=== PATIENT | female | born 1945 | race Hispanic/Latino ===

== ENCOUNTER → 2019-08-04 | Day surgery (SDC) | payer MEDICARE ==
--- NOTE | 2019-08-01 15:56 | Diagnostic Imaging Report ---
EXAM: CHEST 2 VIEWS DATE: 08/01/2019 3:35 PM INDICATION: Preoperative evaluation COMPARISON: None FINDINGS: There are post surgical changes from prior median sternotomy. The trachea is midline. The lungs are symmetrically expanded without evidence for large focal consolidation, pneumothorax, or significant pleural effusion. The cardiomediastinal silhouette and pulmonary vasculature are within normal limits. No acute osseous abnormality is identified. Surgical clips are projected over the bilateral axilla. The surrounding soft tissues are unremarkable. IMPRESSION: No acute cardiopulmonary process identified. Signed by: Dr. Dayo Ortiz MD on 08/01/2019 3:53 PM
[2019-08-01 15:57] LABS: BASOPHILS % 0.4 % (0.0-1.0); EOSINOPHILS % 0.4 % (0.0-6.0); HEMATOCRIT 38.4 % (34.2-44.1); HEMOGLOBIN 11.6 g/dL (12.0-16.0); LYMPHOCYTES # (AUTO) 0.9 (1.0-3.2); LYMPHOCYTES % 8.2 % (18.0-39.1); MEAN CORPUSCULAR HEMOGLOBIN 25.7 pg (28-32); MEAN CORPUSCULAR HGB CONC 30.2 g/dL (31-35); MONOCYTES # (AUTO) 0.5 (0.2-0.8); MONOCYTES % 4.6 % (4.4-11.3); NEUTROPHILS # (AUTO) 9.5 (2.1-6.9); PLATELET COUNT 204 x10e3/uL (140-360); RED BLOOD COUNT 4.52 x10e6/uL (3.6-5.1); RED CELL DISTRIBUTION WIDTH 19.8 % (11.7-14.4)
[2019-08-01 16:14] LABS: ANION GAP 15.7 mmol/L (8-16); CALCIUM 9.3 mg/dL (8.4-10.2); CREATININE, SERUM 5.32 mg/dL (0.57-1.11); POTASSIUM 3.7 mmol/L (3.5-5.1)
[~2019-08-04] MED LIST: AMLODIPINE BESY10 MG PO; AMOXICILLIN250 MG PO; BACITRACIN 50,000 UNIT VIAL ONE; BIOTIN2500 MCG PO; BUPIVACAINE HCL 0.5% INJ 30 ML VIAL INJ ONE; CEFAZOLIN SOD 1 GM/NS 50ML 100 ML IV ONE; CLOPIDOGREL75 MG PO; DEXAMETHASONE SOD PHOS INJ 4 MG/ML VIAL ONE; ETOMIDATE 2 MG/ML 10 ML INJ IV ONE; FENTANYL CITRATE/PF 100MCG/2 ML INJ ONE; GABAPENTIN300 MG PO; GARLIC1000 MG PO; HYDROCODON-ACE1 EA11 PO; LEVEMIR100 UNIT/1 SQ; LIDOCAINE HCL 2% LOCAL INJ 5 ML SDV VIAL INJ ONE; LORAZEPAM0.5 MG PO; METOPROLOL SUCC25 MG PO; NEOSTIGMINE 1 MG/ML 10ML VIAL ONE; NOVOLIN R100 UNIT/1 SQ; NOVOLOG100 UNIT/1 SC; PANTOPRAZOLE SO40 MG PO; PROMETHAZINE12.5 M1 PO; RAMIPRIL5 MG PO; SEVOFLURANE INHAL SOLN 250 ML PEN BTL ONE; SIMVASTATIN40 MG PO; SODIUM CHLORIDE 0.9% 500ML 500 ML ONE; VITAMIN D1000 UNIT PO; VITAMIN E400 UNI1 PO
--- OUTSIDE RECORDS SUMMARY | 2019-08-04 05:56 | XMS REPORT | Summary of Care ---
Author Author [facility] Organization [facility] Address Unknown Phone Unavailable Care Team Providers Care Respiratory Practitioner Name Role Phone PCP Unavailable Reason for Visit * Reason Comments Coronary Artery Disease Encounter Details Care Team Description Date Type Department Eitan Arndt MD [address] [address] Coronary Artery Disease 12/19/2018 Office Visit [facility] Cardiology [address] [address] Allergies Comments Active Allergy Reactions Severity Noted Date Aspirin 11/23/2016 bleeding Salicylates 02/01/2015 documented as of this encounter (statuses as of 12/19/2018) Medications End Date Status Medication Sig Dispensed Refills Start Date Active amlodipine (NORVASC) 10 Take 10 mg by 0 MG tablet mouth. Active gabapentin (NEURONTIN) Take 300 mg 0 300 MG capsule by mouth two times daily. Active metoprolol (TOPROL-XL) 25 TK 1 T PO QD 1 201 MG XL tablet 7 Active promethazine (PHENERGAN) Take 5 mL by 0 6.25 MG/5ML syrup mouth. Active pantoprazole (PROTONIX) Take 40 mg by 0 40 MG tablet mouth. 5 Active Ramipril 5 MG CAPS Take 5 mg by 0 mouth. Active Cyanocobalamin (RA Take 3,000 0 VITAMIN B-12 TR) 1000 MCG mcg by mouth. TBCR Active Cholecalciferol (VITAMIN Take 1,000 0 D3) 1000 UNITS CAPS Units by mouth. Active vitamin E 400 UNITS Take 400 0 capsule Units by mouth. Active hydrocodone-acetaminophen Take 1 tablet 0 (VICODIN) 5-500 mg tablet by mouth. Active Insulin Aspart 100 Inject 4 0 UNIT/ML SOPN Units into the skin. Active insulin detemir (LEVEMIR) Inject 7 0 100 UNIT/ML injection Units into the skin. Active BIOTIN OR Take 500 mg 0 by mouth. Active lorazepam (ATIVAN) 1 MG TK 1 T PO QD 0 tablet FOR 20 DAYS 7 PRN Active Amoxicillin 500 MG TABS amoxicillin 0 500 mg capsule Take 1 capsule twice a day by oral route for 45 days. documented as of this encounter (statuses as of 12/19/2018) Active Problems Problem Noted Date ESRD (end stage renal disease) [place] 11/23/2016 Overview: Secondary to HTN and DM On HD since 02/2015 on , Sat Undergoing renal transplant evaluation PVD (peripheral vascular disease) ([facility] [place]) 7 Overview: Critical LLE ischemia S/p INTERNATIONAL FLIGHT ATTENDANT and stent to left iliac artery on 02/11/2015 Left common femoral endarterectomy 02/03 CAD (coronary artery disease) 11/23/2016 Overview: Multivessel CAD on heart cath 01/30/15 S/P ACB x 3 - MARTINEZ to LAD; SVG to OM an d RPDA, 02/05/2015 HTN (hypertension) 11/23/2016 [facility] 11/23/2016 HLD (hyperlipidemia) 11/23/2016 documented as of this encounter (statuses as of 12/19/2018) Social History Date Tobacco Use Types Packs/Day Years Used Current Every Day Smoker Cigarettes 44 Smokeless Tobacco: Never Used Comments: 4-5 cig a day Drinks/Week oz/Week Comments Alcohol Use No Sex Assigned at Date Recorded Not on file Industry Job Start Date Occupation Not on file Not on file Not on file Travel End Travel History Travel Start No recent travel history available. documented as of this encounter Last Filed Vital Signs Reading Time Taken Comments Vital Sign 120/60 12/19/2018 11:22 AM CDT Blood Pressure 64 12/19/2018 11:22 AM CDT Pulse - - Temperature 15 12/19/2018 11:22 AM CDT Respiratory Rate 95% 12/19/2018 11:22 AM CDT Oxygen Saturation - - Inhaled Oxygen Concentration 62.6 kg (138 lb) 12/19/2018 11:22 AM CDT Weight 160 cm (5' 3") 12/19/2018 11:22 AM CDT Height 24.45 12/19/2018 11:22 AM CDT Body Mass Index documented in this encounter Patient Instructions * Patient Instructions* Rose Marie Adan AG-ACNP - 12/19/2018 12:00 PM CDT Thank you for choosing the [facility]. 1. Please let us know what we can do better. Please provide comments on the surv ey you will receive. We value your feedback. 2. Return to Clinic in 6 months 3. Continue same medications 4. Follow up with Dr. Samuels for peripheral vascular disease 5. Call office if new symptoms occur documented in this encounter Progress Notes * Eitan Arndt MD - 12/19/2018 12:00 PM CDT Patient: Kim Guerrero : 1945 CHIEF COMPLAINT: Pre-Renal Transplant Evaluation RENAL BODY PRESS OPERATOR: Angelica Aguilera RN HISTORY OF PRESENT ILLNESS: Patient is a 73 year old female with past medical history significant for estrada ry artery disease with previous aorto-coronary bypass, peripheral vascular disea se, and end-stage renal disease secondary to hypertension and diabetes mellitus, undergoing renal transplant evaluation - removed from the list in August 2018 CKD since 2015 years CKD is due to DM/ HTN DM duration 15 years 2 years on insulin On HD since 03/2015 - Wed and Wednesday Left arm AVF 2015 Right arm AVF 2016 Being worked up for kidney transplant - no donors Denies CP Class II SOB with climbing stairs or walking distances Dry weight 60 Kg Stress test negative ACB in 02/2015 Has some coughing spells that she uses a nebulizer for but denies any lung disea se diagnoses. Has significant LE claudication Continues to smoke 1 pack per 3 days PAST MEDICAL HISTORY: 1) End-stage renal disease - Secondary to HTN and DM - On HD since 02/2015 on Wed, , Wed - Undergoing renal transplant evaluation - removed from the list in August 2018 2) Hypertension 3) Diabetes Mellitus 4) Peripheral vascular disease - Critical LLE ischemia - S/p INTERNATIONAL FLIGHT ATTENDANT and stent to left iliac artery on 02/11/2015 - Left common femoral endarterectomy 02/12/2015 5) Coronary artery disease - Multivessel CAD on heart cath 01/30/15 - S/P ACB x 3 - MARTINEZ to LAD; SVG to OM and RPDA, 02/05/2015 PAST SURGICAL HISTORY: AVF placement 02/2015 ACB 02/05/15 INTERNATIONAL FLIGHT ATTENDANT and stent to left iliac artery 02/11/15 CURRENT MEDICATIONS: Current Outpatient Medications Medication Sig Dispense Refill amlodipine (NORVASC) 10 MG tablet Take 10 mg by mouth. Amoxicillin 500 MG TABS amoxicillin 500 mg capsule Take 1 capsule twice a day by oral route for 45 days. BIOTIN OR Take 500 mg by mouth. Cholecalciferol (VITAMIN D3) 1000 UNITS CAPS Take 1,000 Units by mouth. Cyanocobalamin (RA VITAMIN B-12 TR) 1000 MCG TBCR Take 3,000 mcg by mouth. gabapentin (NEURONTIN) 300 MG capsule Take 300 mg by mouth two times daily. hydrocodone-acetaminophen (VICODIN) 5-500 mg tablet Take 1 tablet by mouth. Insulin Aspart 100 UNIT/ML SOPN Inject 4 Units into the skin. insulin detemir (LEVEMIR) 100 UNIT/ML injection Inject 7 Units into the skin . lorazepam (ATIVAN) 1 MG tablet TK 1 T PO QD FOR 20 DAYS PRN 0 metoprolol (TOPROL-XL) 25 MG XL tablet TK 1 T PO QD 1 pantoprazole (PROTONIX) 40 MG tablet Take 40 mg by mouth. promethazine (PHENERGAN) 6.25 MG/5ML syrup Take 5 mL by mouth. Ramipril 5 MG CAPS Take 5 mg by mouth. vitamin E 400 UNITS capsule Take 400 Units by mouth. No current facility-administered medications for this visit. 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 HENT: Negative. Eyes: Negative. Respiratory: Negative for shortness of breath. Cardiovascular: Negative Gastrointestinal: Negative for abdominal pain. Genitourinary: Negative. Musculoskeletal: Negative. Skin: Negative. Neurological: Negative. Endo/Heme/Allergies: Negative. Psychiatric/Behavioral: Negative. PHYSICAL EXAMINATION: BP 120/60 (BP Location: right arm, Patient Position: Sitting, Cuff Size: regular ) | Pulse 64 | Resp 15 | Ht 5' 3" (1.6 m) | Wt 138 lb (62.6 kg) | SpO2 95% | BMI 24.45 kg/m General Appearance: Alert, cooperative, no distress, appears stated age Head: Normocephalic, without obvious abnormality, atraumatic Eyes: PERRL, conjunctiva/corneas clear, EOM's intact, fundi benign, both eyes Nose: Nares normal, septum midline, mucosa normal, no drainage or sinus tendern ess Throat: Lips, mucosa, and tongue normal; teeth and gums normal Neck: Supple, symmetrical, trachea midline, no adenopathy; thyroid: no enlargement/tenderness/nodules; no carotid bruit or JVD Back: Symmetric, no curvature, ROM normal, no CVA tenderness Lungs: Clear to auscultation bilaterally, respirations unlabored Chest Wall: No tenderness or deformity Heart: Regular rate and rhythm, S1 and S2 normal, no murmur, rub or gallop ACB scar Loud P2 Abdomen: Soft, non-tender, bowel sounds active all four quadrants, no masses, no organomegaly Extremities: Extremities normal, atraumatic, no cyanosis or edema Pulses: 2+ and symmetric all extremities Skin: Skin color, texture, turgor normal, no rashes or lesions Psychiatry : Normal mood and Affect Lymph nodes: Cervical, supraclavicular, and axillary nodes normal Neurologic: Alert and oriented x 4, normal strength, sensation and reflexes throughout PERTINENT TEST RESULTS: ECHO 01/18/2017 1. Left ventricular chamber size (by vol index) is normal. No evidence of LV hyp ertrophy. All of the LV segments contract normally. Global LV systolic function is lower limits of normal. LVEF by quantitative assessment is lower limits of no rmal (50-55%). Likely Grade 2 diastolic dysfunction (moderately increased LA pre ssure). 2. RV chamber size is normal. Global RV systolic function is low normal. 3. LA size is mildly enlarged (35-41 ml/m2). RA cavity size is normal. 4. Mild mitral annular calcification. Mild increase in the mitral valve gradient s secondary to MAC. Mild MV leaflet thickening. A trace of mitral regurgitation. 5. A trace of tricuspid regurgitation. Peak systolic PA pressure may be underest imated; partial TR signal. Estimated Peak systolic PA pressure is at least 25-30 mm Hg. The estimated RA pressure by IVC dynamics 0-5 mmHg. No prior exam available for comparison. 02/22/15 1) Normal left ventricular chamber size. Mild concentric LV hypertrophy. All seg ments contract normally. Normal overall LV systolic function. Estimated LVEF is 55-60%. 2) The PA systolic pressure is estimated at 45-50 mmHg. The RAP is estimated to be 11-15 mmHg. 3) Pulmonary venous filling pattern is consistent with normal left atrial pressu re. 4) There is a small pericardial effusion. The pericardial effusion is seen adjac ent to the right atrium 02/04/15 1) The endocardium is partially visualized. 2) Normal overall LV systolic function. Estimated LVEF is 55-60%. All segments c ontract normally. 3) The right ventricular chamber size and systolic function are within normal li mits. 4) Mild aortic cusp thickening. 5) There is mild mitral regurgitation observed. The mitral regurgitant jet is ec centric. 6) There is mild tricuspid regurgitation. 7) A trivial pericardial effusion is visualized. 8) The RAP is estimated to be 11-15 mmHg. 9) There is no previous study for comparison. STRESS TEST 01/18/2017 1. Study was performed as a hybrid protocol ( Treadmill Marixa protocol plus L exiscan). Patient exercised for 3 minutes and 27 seconds on the [employer] with work load less than 2 mets. Lexiscan was injected at 1 minute and 30 seco nds of the exercise. 2. With the the hybrid exercise/pharmacologic stressor, there were 0.5 - 1 mm do wn sloping ST depressions noted. Specificity of these ST changes for evaluation of ischemia is reduced in the setting of abnormal baseline EKG. Arrhythmias did occur, and included VPB's. 3. Normal tracer distribution at rest and with stress. 4. Normal LV size, normal wall motion. EF 70%. CT CHEST WITHOUT CONTRAST 02/02/2016 Diffuse pulmonary hyperinflation consistent with COPD. Bilateral pleural effusions and lower lobe atelectasis. A portion of the left lo wer lobe atelectasis laterally has a somewhat oval nodular configuration. A foll ow-up CT scan in 4 months is recommended for re-evaluation. CTA ABDOMEN/PELVIS 06/03/2017 1. There is atherosclerosis seen in the abdominal aorta though no acute aortic p athology is identified. By multiplanar reformation, no luminal obstruction is ap preciated. There is no evidence of acute aortic pathology, specifically, there i s no dissection, intramural hematoma, or contained rupture. Quantitative dimension of the abdominal aorta are as noted. The pelvic veins are patent. Stent is seen in the left common iliac artery extending into the left external i liac artery with no in-stent stenosis identified. There is also substantial calc ific and noncalcific atherosclerosis seen in the right common iliac artery with minimum diameter as described above. The external iliac arteries, bilaterally, are widely patent. As the left common iliac system is widely patent, the left external iliac artery could be a better approach as there is also substantial atherosclerosis seen in the right common iliac artery. 2. Patent mesenteric and renal arteries. 3. Other findings as described above. 4. An addendum will be dictated regarding the non-vascular findings by the Ecological Economist Radiologist. LE ARTERIAL DOPPLER 02/02/2015 Right Impression 1. The common femoral, profunda femoral, superficial femoral, popliteal, posteri or tibial, peroneal and anterior tibial arteries are patent with normal biphasic Doppler waveforms throughout. 2. The PT pressure is 92 mmHg with an JOCELYNE of .75 and the DP pressure is 100 mmHg with an JOCELYNE of .81, within moderate range. 3. The great toe pressure is 27 mmHg with a abnormal TBI of .22. 4. The digits have adequate flow by PPG waveforms. Left Impression 1. The common femoral, profunda femoral, superficial femoral, popliteal, posteri or tibial, peroneal and anterior tibial arteries are patent with monophasic Doppler waveforms throughout, suggestive of more proximal disease. 2. The PT pressure is 50 mmHg with an JOCELYNE of .41 and the DP pressure is 42 mmHg with an JOCELYNE of .34, within severe range. 3. The great toe pressure is 32 mmHg with a abnormal TBI of .26 . 4. The digits has decreased flow by PPG waveforms. Summary Arterial pressures and duplex imaging were performed bilaterally. Arterial press ures and duplex imaging were performed bilaterally. Adequate Doppler signals wer e obtained. Doppler waveforms were biphasic with normal flow on the right. The l eft had monophasic Doppler signals throughout on the left leg suggestive of more proximal disease.. The right ABIs were within moderate range. The left JOCELYNE's were within severe range. The toe pressure, TBI and digital waveforms were abno rmal. CAROTID DOPPLER 02/02/2015 Carotid duplex scanning and color flow imaging were performed bilaterally. The a rteries were adequately visualized. Bilateral internal carotid arteries had 16-4 9% hemodynamically insignificant stenosis (approximately 38% by 2-D measurement on the right, approximately 18% by 2-D measurement on the left) with heterogeneous plaq ue. There is >50% stenosis in the external carotid artery, bilaterally. The vertebral artery flow was antegrade and normal bilaterally. RIGHT HEART CATH 02/15/2017 1) Right atrial pressure RA 9/9/9 mmHg. 2) Right ventricular pressure RV 44/1/5 mmHg. 3) Pulmonary artery pressure PA 43/24/29 mmHg. 4) Mean pulmonary capillary wedge pressure PCWP 02/15/11 mmHg. 5) Ao 62 6) LV pressures 146/2/10 7) PAO2 Sats 62 8) Ao Sats 90 9) By BLAISE calculation, cardiac output 3.4 L per minute with a cardiac index of 2 L/min/m2. 10) TPG 18 11) PVR 5 PERIPHERAL ANGIOGRAM 02/15/2017 AORTOGRAM: Heavily calcified aortoiliac bifurcation 40% proximal R common iliac a 70% ostial R internal iliac a Patent stent in L common iliac a. 80% ostial L internal iliac a. RIGHT UPPER ANGIOGRAM: no obstructive lesions from the R subclavian to the proximal radial and ulnar ar teries. 02/11/15 CORONARY ANGIOGRAM 02/15/2017 Left Main No obstruction RCA 60% proximal, 80% distal stenosis of RCA. 70% ostial stenosis of rPDA befor e anastomosis of SVG. LAD 70% proximal, 90% and 70% mid LAD Circ Two 60% tandem lesions in the distal LCx. 80% ostial stenosis of a branch o f OM1. 70% stenosis of distal OM1. MARTINEZ-LAD Not engaged. However, good competitive flow seen in the LAD target. SVG-rPDA 70% ostial stenosis. SVG-OM Not engaged. However, good competitive flow seen in the target branch of OM1. Closure Device None Complications None ACB 02/05/15 ASSESSMENT: ESRD Secondary to HTN and DM On HD since 02/2015 on Tue, Thur, Sat Undergoing renal transplant evaluation - removed from the list in August 2018 PVD Critical LLE ischemia S/p INTERNATIONAL FLIGHT ATTENDANT and stent to left iliac artery on 02/11/2015 Left common femoral endarterectomy 02/12/2015 CAD Multivessel CAD on heart cath 01/30/15 S/P ACB x 3 - MARTINEZ to LAD; SVG to OM and RPDA, 02/05/2015 Hx of bleeding ulcers Hypotension (During admission 02/2015) Post cardiotomy On BBL TARYN/CKD HD from 02/11/15 HTN DM Type 2 On Insulin Ref. Range 02/02/2015 04:50 02/05/2015 05:13 08/19/2016 13:34 Hemoglobin A1C Latest Ref Range: 4.3 - 6.1 % 6.7 (H) 6.3 (H) 7.4 (H) HLD Smoker Counseled on smoking cessation, including resources, coping mechanisms, Rx optio ns, as well as the importance of smoking cessation. Discussed the role that smok ing plays in her heart and vascular disease and the risks should her disease pro hali. COPD CARDIOLOGY STAFF NOTE I have seen and examined the patient, and reviewed the pertinent laboratory and radiographic data. I agree with the findings, assessment and plan as documented by Rose Marie Adan RN, [facility]- Have reviewed - Vital signs reviewed: - Imaging information reviewed: - Medications reviewed - Physical assessment reviewed PLAN: Needs to quit smoking - counselled Will refer to Dr Samuels for PVD BP control Diet and LSM Exercise counselling and daily activity Salt restricted diet Compliance with meds counselling about lifestyle HD per renal Check lipids BMP CBC and LFT Return to clinic in 6 months Eitan Arndt MD, FACC, FHRS, [facility] Office Office direct Milk And Cream Grader, [facility] [employer] Interventional Cardiology Cardiac Electrophysiology Interventional Heart Failure and Cardiac Transplant [place], [place] [address] documented in this encounter Plan of Treatment Care Team Description Date Type Specialty Eitan Arndt MD [address] [place] [address] 06/19/2019 Office Visit Cardiology Health Maintenance Due Date Last Done Comments COLON CANCER SCREENIN1945 COLONOSCOPY MAMMOGRAM ANNUAL 1945 MEDICARE AWV 1945 TETANUS SHOT (ADULT) 08/10/1962 ANNUAL DIABETIC FOOT EXAM 08/10/1965 ANNUAL DIABETIC 08/10/1965 RETINOPATHY SCREENING HEPATITIS C SCREENING 08/10/1965 FALL SCREEN 08/10/2012 OSTEOPOROSIS SCREENING 08/10/2012 PNEUMOVAX >=65 (PPSV23) 08/10/2012 PREVNAR >= 65 (PCV13) 08/10/2012 FLU VACCINE > 6 MONTHS 11/03/2018 documented as of this encounter Results Not on filedocumented in this encounter Visit Diagnoses Diagnosis Coronary artery disease involving nativ e coronary artery of ute heart without angina pectoris - Primary documented in this encounter Insurance Type Payer Benefit Subscriber ID Effective Phone Address Plan / Dates Group Medicare MEDICARE MEDICARE xxxxxxxxxx 2015- [address] Present [id number] [place] [address] Medicare [employer] AAR xxxxxxxxxxx 2016-P [address] [place] [id number] SUPPLEMENT [facility] [place] [address] documented as of this encounter
--- OUTSIDE RECORDS SUMMARY | 2019-08-04 05:56 | XMS REPORT ---
Author Author [facility] t Organization [facility] Address Unknown Phone Unavailable Care Team Providers Care Service Person Name Role Phone VILLA HERMAN Unavailable Unavailable EZRA ENCARNACION Unavailable Unavailable VILLA BLAKELY Unavailable Unavailable SWEETIE YORK Unavailable Unavailable SCOTTY SMITH Unavailable Unavailable GIOVANY LEUNG Unavailable Unavailable Josselin GIBBONS Unavailable Unavailable Payers Payer Name Policy Type Policy Number Effective Date Expiration D ate Problems Condition Name Condition Details Condition Category Status Onset Date Resolution Date Last Treatment Date Treating Clinician Comments Anxiety Anxiety Problem Active 2018-10-26 00:00:00 End stage renal failure on dialysis End Stage Renal Failure on D ialysis Problem Active 2017-07-02 00:00:00 Patient encounter status Patient Encounter Status Problem Acti ve 2017-02-15 00:00:00 Abrasion and/or friction burn of hand, infected Abrasi on And/or Friction Burn of Hand, Infected Problem Active 2016-10-13 00:00:00 Type 2 diabetes mellitus Type 2 Diabetes Mellitus Problem Acti ve 2016-01-03 00:00:00 Hyperlipidemia Hyperlipidemia Problem Active 2016-01-03 00:00:00 Peripheral nerve disease Peripheral Nerve Disease Problem Acti ve 2016-01-03 00:00:00 Gastroesophageal reflux disease Gastroesophageal Reflux Disease Pro blem Active 2016-01-03 00:00:00 Chronic kidney disease Chronic Kidney Disease Problem Active 2016-01-03 00:00:00 Chronic back pain Chronic Back Pain Problem Active 2016-01-03 00:00:00 Stented artery Stented Artery Problem Active 2016-01-03 00:00:00 Dependence on hemodialysis Dependence on Hemodialysis Problem Active 2016-01-03 00:00:00 History of coronary artery bypass grafting History of Coronary Artery Bypass Grafting Problem Active 2016-01-03 00:00:00 Pulmonary insufficiency following surgery Pulmonary In sufficiency Following Surgery Problem Active 2015-02-07 00:00:00 Shock Shock Problem Active 2015-02-07 00:00:00 Chronic renal insufficiency Chronic Renal Insufficiency Problem Active 2015-02-07 00:00:00 Anemia following acute postoperative blood loss Anemia Following Acute Postoperative Blood Loss Problem Active 2015-02-07 00:00:00 Diabetes mellitus Diabetes Mellitus Problem Active 2015-02-01 00:00:00 Coronary arteriosclerosis Coronary Arteriosclerosis Problem Ac tive 2015-02-01 00:00:00 End-stage renal disease End-stage Renal Disease Problem Active 2015-02-01 00:00:00 Hypertensive disorder Hypertensive Disorder Problem Active 201 08-12-29 00:00:00 Peripheral vascular disease Peripheral Vascular Disease Problem Active 2015-02-01 00:00:00 Dehydration Dehydration Problem Active Hyperkalemia Hyperkalemia Problem Active Anemia Anemia Problem Active Acute congestive heart failure Acute Congestive Heart Failure Problem Active Congestive heart failure Congestive Heart Failure Problem Active Peripheral arterial occlusive disease Peripheral Arterial Oc clusive Disease Problem Active Melena Melena Problem Active Renal failure syndrome Renal Failure Syndrome Problem Active Renal impairment Renal Impairment Problem Active Lower urinary tract infectious disease Lower Urinary Tract I nfectious Disease Problem Active Pain in thumb Pain in Thumb Problem Active Near syncope Near Syncope Problem Active Dizziness present Dizziness Present Problem Active Dyspnea Dyspnea Problem Active Acute diarrhea Acute Diarrhea Problem Active Hyperglycemia Hyperglycemia Problem Active ECG: sinus tachycardia ECG: Sinus Tachycardia Problem Active Contusion of upper arm Contusion of Upper Arm Problem Active Disorder of surgical arteriovenous fistula Disorder of Surgical Arteriovenous Fistula Problem Active Acute exacerbation of chronic obstructive bronchitis A cute Exacerbation of Chronic Obstructive Bronchitis Problem Active Allergies, Adverse Reactions, Alerts Allergy Name Allergy Type Status Severity Reaction(s) Onset Date Inacti ve Date Treating Clinician Comments aspirin DA Active MO 2019-04-02 00:00:00 aspirin DA Active MO 2018-07-31 00:00:00 aspirin DA Active MO 2016-12-23 00:00:00 Aspirin Allergy to substance Active Medications Ordered Medication Name Filled Medication Name Start Date Stop Da te Current Medication? Ordering Clinician Indication Dosage Frequency Signature (SIG) Comments Components amlodipine 10 mg tablet Take 1 tablet every day by ora l route. amlodipine 10 mg tablet Take 1 tablet every day by oral route. No amlodipine 10 mg tablet Take 1 tablet every day by oral route. amoxicillin 500 mg capsule amoxicillin 500 mg capsule No amoxicillin 500 mg capsule biotin 5 mg tablet Take 2 tablets twice a day by oral route. biotin 5 mg tablet Take 2 tablets twice a day by oral route. No 2 BID biotin 5 mg tablet Take 2 tablets twice a day by oral route. cholecalciferol (vitamin D3) 25 mcg (1,0 00 unit) capsule Take 1 capsule every other day by oral route. cholecalciferol (vitamin D3) 25 mcg (1,0 00 unit) capsule Take 1 capsule every other day by oral route. No 1capsule(s) Q2D cholecalciferol (vitamin D3) 25 mcg (1,0 00 unit) capsule Take 1 capsule every other day by oral route. clopidogrel 75 mg tablet every 24 hours by oral route . clopidogrel 75 mg tablet every 24 hours by oral route. No clopidogrel 75 mg tablet every 24 hours by oral route. cyanocobalamin (vit B-12) 1,000 mcg tabl et Take 1 tablet every other day by oral route. cyanocobalamin (vit B-12) 1,000 mcg tabl et Take 1 tablet every other day by oral route. No 1 Q2D cyanocoba denisha (vit B-12) 1,000 mcg tablet Take 1 tablet every other day by oral route. gabapentin 300 mg capsule Take 0.5 capsules twice a da y by oral route. gabapentin 300 mg capsule Take 0.5 capsules twice a day by oral route. No .5capsule(s) BID gabapentin 300 mg ca psule Take 0.5 capsules twice a day by oral route. garlic 1,000 MG - 1 tab a day garlic 1,000 MG - 1 tab a day No garlic 1,000 MG - 1 tab a day Levemir FlexTouch U-100 Insulin 100 unit /mL (3 mL) subcutaneous pen Inject 8 units every day by subcutaneous route. Levemir FlexTouch U-100 Insulin 100 unit/mL (3 mL) subcutaneous pen Inject 8 units every day by subcutaneous route. No Levemir Fl exTouch U-100 Insulin 100 unit/mL (3 mL) subcutaneous pen Inject 8 units every day by subcutaneous route. lorazepam 1 mg tablet Take 1 tablet ever y day by oral route as needed for 30 days. lorazepam 1 mg tablet Take 1 tablet ever y day by oral route as needed for 30 days. No lorazepam 1 mg tablet Take 1 tablet every day by oral route as needed for 30 days. metoprolol succinate ER 25 mg tablet,ext ended release 24 hr Take 1 tablet every day by oral route. metoprolol succinate ER 25 mg tablet,ext ended release 24 hr Take 1 tablet every day by oral route. No 1 Q1D metoprolol succinate ER 25 mg tablet,extended release 24 hr Take 1 tablet every day by oral route. Novolog Flexpen U-100 Insulin aspart 100 unit/mL (3 mL) subcutaneous Inject 4 units every day by subcutaneous route before meals. Novolog Flexpen U-100 Insulin aspart 100 unit/mL (3 mL) subcutaneous Inject 4 units every day by subcutaneous route before meals. No Novolog Flexpen U-100 Insulin aspart 100 unit/mL (3 mL) subcutaneous Inject 4 units every day by subcutaneous route before meals. pantoprazole 40 mg tablet,delayed releas e TAKE 1 TABLET BY MOUTH EVERY DAY NEEDED pantoprazole 40 mg tablet,delayed releas e TAKE 1 TABLET BY MOUTH EVERY DAY NEEDED No pantoprazo le 40 mg tablet,delayed release TAKE 1 TABLET BY MOUTH EVERY DAY NEEDED promethazine 12.5 mg tablet Take 1 tablet every 6-8 ho urs by oral route. promethazine 12.5 mg tablet Take 1 tablet every 6-8 hours by oral route. No 1 Q7H promethazine 12. 5 mg tablet Take 1 tablet every 6-8 hours by oral route. ramipril 10 mg capsule Take 1 capsule every day by ora l route. ramipril 10 mg capsule Take 1 capsule every day by oral route. No ramipril 10 mg capsule Take 1 capsule every day by oral route. rosuvastatin 10 mg tablet TAKE 1 TABLET BY MOUTH EVERY DAY rosuvastatin 10 mg tablet TAKE 1 TABLET BY MOUTH EVERY DAY No rosuvastatin 10 mg tablet TAKE 1 TABLET BY MOUTH EVERY DAY Vicodin 5 mg-300 mg tablet Take 1 tablet twice a day by oral route as needed for 30 days. Vicodin 5 mg-300 mg tablet Take 1 tablet twice a day by oral route as needed for 30 days. No 1 BID Buddy din 5 mg-300 mg tablet Take 1 tablet twice a day by oral route as needed for 30 days. vitamin E (dl, acetate) 400 unit capsule Take 1 capsule every day by oral route. vitamin E (dl, acetate) 400 unit capsule Take 1 capsule every day by oral route. No 1capsule(s) Q1D vitamin E (d l, acetate) 400 unit capsule Take 1 capsule every day by oral route. Immunizations Ordered Immunization Name Filled Immunization Name Date Sta tus Comments influenza, injectable, quadrivalent influenza, injectable, q uadrivalent 2018-11-03 00:00:00 Completed influenza, high dose seasonal influenza, high dose seasonal 2017 00:00:00 Completed Pneumococcal Conjugate, unspecified formulation Pneumo coccal Conjugate, unspecified formulation 2018-01-03 00:00:00 Completed influenza, injectable, quadrivalent influenza, injectable, q uadrivalent 2017-01-11 00:00:00 Completed influenza, injectable, quadrivalent influenza, injectable, q uadrivalent 2016-01-02 00:00:00 Completed Vital Signs Vital Name Observation Time Observation Value Comments BP Diastolic 2019-03-27 00:00:00 63 mm[Hg] Height 2019-03-27 00:00:00 61.5 [in_i] BP Systolic 2019-03-27 00:00:00 126 mm[Hg] Body Weight 2019-03-27 00:00:00 137.8 [lb_av] BP Diastolic 2019-02-23 00:00:00 69 mm[Hg] Height 2019-02-23 00:00:00 61.5 [in_i] BP Systolic 2019-02-23 00:00:00 128 mm[Hg] Body Weight 2019-02-23 00:00:00 140 [lb_av] BP Diastolic 2019-01-27 00:00:00 62 mm[Hg] Height 2019-01-27 00:00:00 61.5 [in_i] BP Systolic 2019-01-27 00:00:00 130 mm[Hg] Body Weight 2019-01-27 00:00:00 139 [lb_av] BP Diastolic 2018-11-18 00:00:00 66 mm[Hg] Height 2018-11-18 00:00:00 63 [in_i] BP Systolic 2018-11-18 00:00:00 100 mm[Hg] Body Weight 2018-11-18 00:00:00 138 [lb_av] BP Diastolic 2018-10-26 00:00:00 54 mm[Hg] Height 2018-10-26 00:00:00 63 [in_i] BP Systolic 2018-10-26 00:00:00 100 mm[Hg] Body Weight 2018-10-26 00:00:00 141 [lb_av] BP Diastolic 2018 00:00:00 55 mm[Hg] Height 2018 00:00:00 63 [in_i] BP Systolic 2018 00:00:00 100 mm[Hg] Body Weight 2018 00:00:00 35 [lb_av] Procedures and Interventions Procedure Date / Time Performed Performing Clinici an MAMMO, screening, digital, bilateral 2019-01-27 00:00:00 bone density 2019-01-27 00:00:00 Colonoscopy Encounters Start Date/Time End Date/Time Encounter Type Admission Type [facility] Care Department Encounter ID 2019-03-27 00:00:00 2019-03-27 00:00:00 Cassius Rios , DO: [address] [place] [address], Ph. [facility] [id number] 00:00:00 2019-02-23 00:00:00 Cassius Rios , DO: [address] [place] [address], [facility]. [facility] [id number] 2019-01-27 00:00:00 2019-01-27 00:00:00 Bruce gandhi MD: [address] [place] [address], Ph. [facility] [id number] 2018-11-18 00:00:00 2018-11-18 00:00:00 Bruce gandhi MD: [address] [place] [address], Ph. [facility] [id number] 2018-10-26 00:00:00 2018-10-26 00:00:00 Bruce gandhi MD: [address] [place] [address], Ph. [facility] [id number] 2018-09-21 00:00:00 2018-09-21 00:00:00 Bruce gandhi MD: [address] [place] [address], Ph. [facility] [id number] 2018 00:00:00 2018 00:00:00 Bruce gandhi MD: [address] [place] [address], Ph. [facility] [id number] Results Test Description Test Time Test Comments Text Results Atomic Results Result Comments CHEST 2 VIEWS 2019-08-01 15:52:00 [place] [address] Patient Name: JOSHUA SANTIAGO MR #: [id number] : 1945 Age/Sex: 73/F Req #: [id number] Adm Physician: Ordered by: VILLA HERMAN DPMelissa Report #: [id number] Location: OR Room/Bed: Procedure: [id number] DX/CHEST 2 VIEWS Exam Date: 08/01/19 Exam Time: 1535 REPORT STATUS: Signed EXAM: CHEST 2 VIEWS DATE: 08/01/2019 3:35 PM INDICATION: Preoperative evaluation COMPARISON: None FINDINGS: There are post surgical changes from prior median sternotomy. The trachea is midline. The lungs are symmetrically expanded without evidence for large focal consolidation, pneumothorax, or significant pleural effusion. The cardiomediastinal silhouette and pulmonary vasculature are within normal limits. No acute osseous abnormality is identified. Surgical clips are projected over the bilateral axilla. The surrounding soft tissues are unremarkable. IMPRESSION: No acute cardiopulmonary process identified. Signed by: Dr. Dayo Ortiz MD on 08/01/2019 3:53 PM Dictated By: DAYO ORTIZ MD 52 Transcribed By: NELSON on 08/01/191552 COPY TO: VILLA HERMAN [facility] - SP FLUORO GUID CTRL ACC DEV 2019-04-17 09:40:00 Name: JOSHUA SANTIAGO [facility] : 1945 Age/S: 73 / F [address] [facility] Unit #: [id number] Loc: [place] [address] Phys: Olga Hearn MD Acct: [id number] Dis Date: Status: ADM IN PHONE #: [phone] Exam Date: 04/17/2019 0855 FAX #: [phone] Reason: / EXAMS: CPT CODE: [id number] SP FLUORO GUID CTRL ACC DEV [id number] Fluoro Time: 2 DAP (Gy m2): 0.526 Air Kerma (mGy): 1.27 REASON FOR EXAM: Resolution of right foot infection Exam order date: 04/17/2019 8:50 AM Ordering: Olga Hearn MD Attending:Olga Hearn MD Location:[facility] PROCEDURE: Removal Of Tunneled central Catheter CPT code: 85335, 26886 FINDINGS: Prior to the procedure, informed consent was obtained after risks and benefits of the procedure were explained to the patient. The patient agreed and wanted to proceed. The patient was brought to special procedures and placed supine on the table. The left anterior chest wall was prepped and draped in the usual fashion. All maximal sterile barrier techniques were applied. 2% local lidocaine was given. Using blunt dissection, the cuff was freed with a hemostat and the catheter was removed. MEDICATIONS: None. COMPLICATIONS: None. BLOOD LOSS: Less than 5 cc Fluoroscopic time: 2 sec Fluoroscopic dose: 1.2 mGy IMPRESSION: left IJ TUNNELED CENTRAL CATHETER WAS REMOVED. at 0940 Reported and signed by: Bharathi White M.D. CC: Olga Hearn MD; Gage Tovar MD Technologist: VIRGILIO SOTO REAL ESTATE MANAGER Trn scb Date/Time: 04/17/2019 (939) Luz MariaVTL Orig Print D/T: S: 04/17/2019 (0225) PAGE 1 Signed Report GLUBED 2019-04-17 08:23:00 GLUBED (test code = GLUBED) 180 mg/dL 74-106 Perf ormed by certified refinery operator reforming unit at [facility] [id number] 23:22:00* Test Item Value Reference Range Comments GLUBED (test code = GLUBED) 192 mg/dL 74-106 Perf ormed by certified refinery operator reforming unit at [facility] [id number] 20:34:00* Test Item Value Reference Range Comments GLUBED (test code = GLUBED) 211 mg/dL 74-106 Perf ormed by certified refinery operator reforming unit at [facility] [id number] 17:36:00* Test Item Value Reference Range Comments GLUBED (test code = GLUBED) 166 mg/dL 74-106 Perf ormed by certified refinery operator reforming unit at [facility] [id number] 12:20:00* Test Item Value Reference Range Comments GLUBED (test code = GLUBED) 211 mg/dL 74-106 Perf ormed by certified refinery operator reforming unit at [facility] [id number] 08:01:00* Test Item Value Reference Range Comments GLUBED (test code = GLUBED) 107 mg/dL 74-106 Perf ormed by certified refinery operator reforming unit at [facility] [id number] 02:42:00* Test Item Value Reference Range Comments GLUBED (test code = GLUBED) 124 mg/dL 74-106 Perf ormed by certified refinery operator reforming unit at [facility] [id number] 16:54:00* Test Item Value Reference Range Comments GLUBED (test code = GLUBED) 221 mg/dL 74-106 Perf ormed by certified refinery operator reforming unit at [facility] [id number] 13:19:00* Test Item Value Reference Range Comments GLUBED (test code = GLUBED) 125 mg/dL 74-106 Perf ormed by certified refinery operator reforming unit at [facility] CBC W/O [id number] 10:08:00* Test Item Value Reference Range Comments WHITE BLOOD CELL (test code = WBC) 7.1 K/mm3 4.5-12.5 RED BLOOD CELL (test code = RBC) 3.11 mill/mm3 3.7-5.2 HEMOGLOBIN (test code = HGB) 8.6 gram/dL 11.5-15.5 HEMATOCRIT (test code = HCT) 28.4 % 36.0-46.0 MEAN CELL VOLUME (test code = MCV) 91.3 fL 80-98 MEAN CELL HGB (test code = MCH) 27.7 picogram 27.0-33.0 MEAN CELL HGB CONCETRATION (test code = MCHC) 30.3 gram/dL 33 .0-36.0 RED CELL DISTRIBUTION WIDTH (test code = RDW) 17.2 % 11 .6-16.2 PLATELET COUNT (test code = PLT) 216 K/mm3 150-450 MEAN PLATELET VOLUME (test code = MPV) 11.1 fL 6.7-11.0 BASIC METABOLIC [id number] 10:05:00* Test Item Value Reference Range Comments SODIUM (test code = NA) 137 mmol/L 136-145 POTASSIUM (test code = K) 4.1 mmol/L 3.5-5.1 CHLORIDE (test code = CL) 100.0 mmol/L 98-107 CARBON DIOXIDE (test code = CO2) 27.0 mmol/L 21-32 ANION GAP (test code = GAP) 14.1 10-20 GLUCOSE (test code = GLU) 170 mg/dL 74-106 BLOOD UREA NITROGEN (test code = BUN) 24 mg/dL 7-18 GLOMERULAR FILTRATION RATE (test code = GFR) 6 mL/min >=6 0 Estimated GFR by using Modified MDRD formula.Chronic kidney disease is defined as either kidney damageor GFR <60 mL/min/1.73 m2 for >3 months. CREATININE (test code = CREAT) 6.40 mg/dL 0.55-1.02 * *Note change in reference range due to change in reagent. BUN/CREATININE RATIO (test code = BUN/CREA) 3.8 10-2 0 CALCIUM (test code = CA) 8.1 mg/dL 8.5-10.1 BASIC METABOLIC [id number] 09:59:00* Test Item Value Reference Range Comments SODIUM (test code = NA) 137 mmol/L 136-145 POTASSIUM (test code = K) 4.1 mmol/L 3.5-5.1 CHLORIDE (test code = CL) 100.0 mmol/L 98-107 CARBON DIOXIDE (test code = CO2) mmol/L 21-32 ANION GAP (test code = GAP) 10-20 GLUCOSE (test code = GLU) mg/dL 74-106 BLOOD UREA NITROGEN (test code = BUN) mg/dL 7-18 GLOMERULAR FILTRATION RATE (test code = GFR) mL/min >=6 0 CREATININE (test code = CREAT) mg/dL 0.55-1.02 BUN/CREATININE RATIO (test code = BUN/CREA) 10-2 0 CALCIUM (test code = CA) mg/dL 8.5-10.1 [id number] 08:27:00* Test Item Value Reference Range Comments GLUBED (test code = GLUBED) 136 mg/dL 74-106 Perf ormed by certified refinery operator reforming unit at [facility] [id number] 05:52:00* Test Item Value Reference Range Comments GLUBED (test code = GLUBED) 169 mg/dL 74-106 Perf ormed by certified refinery operator reforming unit at [facility] [id number] 20:50:00* Test Item Value Reference Range Comments GLUBED (test code = GLUBED) 109 mg/dL 74-106 Perf ormed by certified refinery operator reforming unit at [facility] [id number] 12:33:00* Test Item Value Reference Range Comments GLUBED (test code = GLUBED) 261 mg/dL 74-106 Perf ormed by certified refinery operator reforming unit at [facility] [id number] 08:34:00* Test Item Value Reference Range Comments GLUBED (test code = GLUBED) 133 mg/dL 74-106 Perf ormed by certified refinery operator reforming unit at [facility] CBC W/AUTO [id number] 05:52:00* Test Item Value Reference Range Comments WHITE BLOOD CELL (test code = WBC) 6.8 K/mm3 4.5-12.5 RED BLOOD CELL (test code = RBC) 3.01 mill/mm3 3.7-5.2 HEMOGLOBIN (test code = HGB) 8.3 gram/dL 11.5-15.5 HEMATOCRIT (test code = HCT) 28.3 % 36.0-46.0 MEAN CELL VOLUME (test code = MCV) 94.0 fL 80-98 MEAN CELL HGB (test code = MCH) 27.6 picogram 27.0-33.0 MEAN CELL HGB CONCETRATION (test code = MCHC) 29.3 gram/dL 33 .0-36.0 RED CELL DISTRIBUTION WIDTH (test code = RDW) 16.3 % 11 .6-16.2 RED CELL DISTRIBUTION WIDTH SD (test code = RDW-SD) 55.4 fL 37.0-51.0 PLATELET COUNT (test code = PLT) 190 K/mm3 150-450 MEAN PLATELET VOLUME (test code = MPV) 11.0 fL 6.7-11.0 NEUTROPHIL % (test code = NT%) 84.9 % 39.0-69.0 IMMATURE GRANULOCYTE % (test code = IG%) 0.7 % 0.0-5.0 LYMPHOCYTE % (test code = LY%) 7.7 % 25.0-55.0 MONOCYTE % (test code = MO%) 5.5 % 0.0-10.0 EOSINOPHIL % (test code = EO%) 0.6 % 0.0-5.0 BASOPHIL % (test code = BA%) 0.6 % 0.0-1.0 NUCLEATED RBC % (test code = NRBC%) 0.3 % 0-0 NEUTROPHIL # (test code = NT#) 5.73 K/mm3 1.8-7.7 IMMATURE GRANULOCYTE # (test code = IG#) 0.05 x10 3/uL 0-0.03 LYMPHOCYTE # (test code = LY#) 0.52 K/mm3 1.0-5.0 MONOCYTE # (test code = MO#) 0.37 K/mm3 0-0.8 EOSINOPHIL # (test code = EO#) 0.04 K/mm3 0.0-0.5 BASOPHIL # (test code = BA#) 0.04 K/mm3 0.0-0.2 NUCLEATED RBC # (test code = NRBC#) 0.02 K/mm3 0.0-0.1 MANUAL DIFF REQUIRED (test code = MDIFF) NO, ONLY SCAN NEEDED DIFFERENTIAL [id number] 05:52:00* Test Item Value Reference Range Comments STAIN ACCEPTABILITY (test code = STN ACCEPTABLE) STAIN ACCEPTABL E POLYCHROMASIA (test code = POLC) 1+ PLATELET ESTIMATE (test code = PLTEST) ADEQUATE PLATELET MORPHOLOGY (test code = PLTMORPH) NORMAL COMPREHENSIVE METABOLIC [id number] 05:32:00* Test Item Value Reference Range Comments SODIUM (test code = NA) 141 mmol/L 136-145 POTASSIUM (test code = K) 4.0 mmol/L 3.5-5.1 CHLORIDE (test code = CL) 102.0 mmol/L 98-107 CARBON DIOXIDE (test code = CO2) 30.0 mmol/L 21-32 ANION GAP (test code = GAP) 13.0 10-20 GLUCOSE (test code = GLU) 140 mg/dL 74-106 BLOOD UREA NITROGEN (test code = BUN) 13 mg/dL 7-18 RESULT VERIFIED BY REPEAT ANALYSIS GLOMERULAR FILTRATION RATE (test code = GFR) 11 mL/min >=6 0 Estimated GFR by using Modified MDRD formula.Chronic kidney disease is defined as either kidney damageor GFR <60 mL/min/1.73 m2 for >3 months. CREATININE (test code = CREAT) 3.90 mg/dL 0.55-1.02 * *Note change in reference range due to change in reagent. BUN/CREATININE RATIO (test code = BUN/CREA) 3.3 10-2 0 TOTAL PROTEIN (test code = PROT) 5.6 gram/dL 6.4-8.2 ALBUMIN (test code = ALB) 2.2 g/dL 3.4-5.0 GLOBULIN (test code = GLOB) 3.4 gram/dL 2.7-4.2 ALBUMIN/GLOBULIN RATIO (test code = A/G) 0.7 0.75-1. 50 CALCIUM (test code = CA) 8.0 mg/dL 8.5-10.1 BILIRUBIN TOTAL (test code = BILT) 0.50 mg/dL 0.0-1.0 SGOT/AST (test code = AST) 10 IUnit/L 15-37 SGPT/ALT (test code = ALT) 6 IUnit/L 12-78 ALKALINE PHOSPHATASE TOTAL (test code = ALKP) 79 IUnit/L 45 -117 Note change in reference range due to change in reagent. CBC W/AUTO [id number] 04:39:00* Test Item Value Reference Range Comments WHITE BLOOD CELL (test code = WBC) 6.8 K/mm3 4.5-12.5 RED BLOOD CELL (test code = RBC) 3.01 mill/mm3 3.7-5.2 HEMOGLOBIN (test code = HGB) 8.3 gram/dL 11.5-15.5 HEMATOCRIT (test code = HCT) 28.3 % 36.0-46.0 MEAN CELL VOLUME (test code = MCV) 94.0 fL 80-98 MEAN CELL HGB (test code = MCH) 27.6 picogram 27.0-33.0 MEAN CELL HGB CONCETRATION (test code = MCHC) 29.3 gram/dL 33 .0-36.0 RED CELL DISTRIBUTION WIDTH (test code = RDW) 16.3 % 11 .6-16.2 RED CELL DISTRIBUTION WIDTH SD (test code = RDW-SD) 55.4 fL 37.0-51.0 PLATELET COUNT (test code = PLT) 190 K/mm3 150-450 MEAN PLATELET VOLUME (test code = MPV) 11.0 fL 6.7-11.0 NEUTROPHIL % (test code = NT%) 84.9 % 39.0-69.0 IMMATURE GRANULOCYTE % (test code = IG%) 0.7 % 0.0-5.0 LYMPHOCYTE % (test code = LY%) 7.7 % 25.0-55.0 MONOCYTE % (test code = MO%) 5.5 % 0.0-10.0 EOSINOPHIL % (test code = EO%) 0.6 % 0.0-5.0 BASOPHIL % (test code = BA%) 0.6 % 0.0-1.0 NUCLEATED RBC % (test code = NRBC%) 0.3 % 0-0 NEUTROPHIL # (test code = NT#) 5.73 K/mm3 1.8-7.7 IMMATURE GRANULOCYTE # (test code = IG#) 0.05 x10 3/uL 0-0.03 LYMPHOCYTE # (test code = LY#) 0.52 K/mm3 1.0-5.0 MONOCYTE # (test code = MO#) 0.37 K/mm3 0-0.8 EOSINOPHIL # (test code = EO#) 0.04 K/mm3 0.0-0.5 BASOPHIL # (test code = BA#) 0.04 K/mm3 0.0-0.2 NUCLEATED RBC # (test code = NRBC#) 0.02 K/mm3 0.0-0.1 MANUAL DIFF REQUIRED (test code = MDIFF) NO, ONLY SCAN NEEDED DIFFERENTIAL [id number] 04:39:00* Test Item Value Reference Range Comments STAIN ACCEPTABILITY (test code = STN ACCEPTABLE) CABOT RINGS (test code = CAB) MORPHOLOGY COMMENT (test code = MOC) PLATELET ESTIMATE (test code = PLTEST) PLATELET MORPHOLOGY (test code = PLTMORPH) CBC W/AUTO [id number] 04:39:00* Test Item Value Reference Range Comments WHITE BLOOD CELL (test code = WBC) 6.8 K/mm3 4.5-12.5 RED BLOOD CELL (test code = RBC) 3.01 mill/mm3 3.7-5.2 HEMOGLOBIN (test code = HGB) 8.3 gram/dL 11.5-15.5 HEMATOCRIT (test code = HCT) 28.3 % 36.0-46.0 MEAN CELL VOLUME (test code = MCV) 94.0 fL 80-98 MEAN CELL HGB (test code = MCH) 27.6 picogram 27.0-33.0 MEAN CELL HGB CONCETRATION (test code = MCHC) 29.3 gram/dL 33 .0-36.0 RED CELL DISTRIBUTION WIDTH (test code = RDW) 16.3 % 11 .6-16.2 RED CELL DISTRIBUTION WIDTH SD (test code = RDW-SD) 55.4 fL 37.0-51.0 PLATELET COUNT (test code = PLT) 190 K/mm3 150-450 MEAN PLATELET VOLUME (test code = MPV) 11.0 fL 6.7-11.0 NEUTROPHIL % (test code = NT%) 84.9 % 39.0-69.0 IMMATURE GRANULOCYTE % (test code = IG%) 0.7 % 0.0-5.0 LYMPHOCYTE % (test code = LY%) 7.7 % 25.0-55.0 MONOCYTE % (test code = MO%) 5.5 % 0.0-10.0 EOSINOPHIL % (test code = EO%) 0.6 % 0.0-5.0 BASOPHIL % (test code = BA%) 0.6 % 0.0-1.0 NUCLEATED RBC % (test code = NRBC%) 0.3 % 0-0 NEUTROPHIL # (test code = NT#) 5.73 K/mm3 1.8-7.7 IMMATURE GRANULOCYTE # (test code = IG#) 0.05 x10 3/uL 0-0.03 LYMPHOCYTE # (test code = LY#) 0.52 K/mm3 1.0-5.0 MONOCYTE # (test code = MO#) 0.37 K/mm3 0-0.8 EOSINOPHIL # (test code = EO#) 0.04 K/mm3 0.0-0.5 BASOPHIL # (test code = BA#) 0.04 K/mm3 0.0-0.2 NUCLEATED RBC # (test code = NRBC#) 0.02 K/mm3 0.0-0.1 MANUAL DIFF REQUIRED (test code = MDIFF) NO, ONLY SCAN NEEDED DIFFERENTIAL [id number] 04:39:00* Test Item Value Reference Range Comments STAIN ACCEPTABILITY (test code = STN ACCEPTABLE) CABOT RINGS (test code = CAB) MORPHOLOGY COMMENT (test code = MOC) PLATELET ESTIMATE (test code = PLTEST) PLATELET MORPHOLOGY (test code = PLTMORPH) CBC W/AUTO [id number] 04:39:00* Test Item Value Reference Range Comments WHITE BLOOD CELL (test code = WBC) 6.8 K/mm3 4.5-12.5 RED BLOOD CELL (test code = RBC) 3.01 mill/mm3 3.7-5.2 HEMOGLOBIN (test code = HGB) 8.3 gram/dL 11.5-15.5 HEMATOCRIT (test code = HCT) 28.3 % 36.0-46.0 MEAN CELL VOLUME (test code = MCV) 94.0 fL 80-98 MEAN CELL HGB (test code = MCH) 27.6 picogram 27.0-33.0 MEAN CELL HGB CONCETRATION (test code = MCHC) 29.3 gram/dL 33 .0-36.0 RED CELL DISTRIBUTION WIDTH (test code = RDW) 16.3 % 11 .6-16.2 RED CELL DISTRIBUTION WIDTH SD (test code = RDW-SD) 55.4 fL 37.0-51.0 PLATELET COUNT (test code = PLT) 190 K/mm3 150-450 MEAN PLATELET VOLUME (test code = MPV) 11.0 fL 6.7-11.0 NEUTROPHIL % (test code = NT%) 84.9 % 39.0-69.0 IMMATURE GRANULOCYTE % (test code = IG%) 0.7 % 0.0-5.0 LYMPHOCYTE % (test code = LY%) 7.7 % 25.0-55.0 MONOCYTE % (test code = MO%) 5.5 % 0.0-10.0 EOSINOPHIL % (test code = EO%) 0.6 % 0.0-5.0 BASOPHIL % (test code = BA%) 0.6 % 0.0-1.0 NUCLEATED RBC % (test code = NRBC%) 0.3 % 0-0 NEUTROPHIL # (test code = NT#) 5.73 K/mm3 1.8-7.7 IMMATURE GRANULOCYTE # (test code = IG#) 0.05 x10 3/uL 0-0.03 LYMPHOCYTE # (test code = LY#) 0.52 K/mm3 1.0-5.0 MONOCYTE # (test code = MO#) 0.37 K/mm3 0-0.8 EOSINOPHIL # (test code = EO#) 0.04 K/mm3 0.0-0.5 BASOPHIL # (test code = BA#) 0.04 K/mm3 0.0-0.2 NUCLEATED RBC # (test code = NRBC#) 0.02 K/mm3 0.0-0.1 MANUAL DIFF REQUIRED (test code = MDIFF) NO, ONLY SCAN NEEDED DIFFERENTIAL [id number] 04:39:00* Test Item Value Reference Range Comments STAIN ACCEPTABILITY (test code = STN ACCEPTABLE) MORPHOLOGY COMMENT (test code = MOC) PLATELET ESTIMATE (test code = PLTEST) PLATELET MORPHOLOGY (test code = PLTMORPH) CBC W/AUTO [id number] 04:39:00* Test Item Value Reference Range Comments WHITE BLOOD CELL (test code = WBC) 6.8 K/mm3 4.5-12.5 RED BLOOD CELL (test code = RBC) 3.01 mill/mm3 3.7-5.2 HEMOGLOBIN (test code = HGB) 8.3 gram/dL 11.5-15.5 HEMATOCRIT (test code = HCT) 28.3 % 36.0-46.0 MEAN CELL VOLUME (test code = MCV) 94.0 fL 80-98 MEAN CELL HGB (test code = MCH) 27.6 picogram 27.0-33.0 MEAN CELL HGB CONCETRATION (test code = MCHC) 29.3 gram/dL 33 .0-36.0 RED CELL DISTRIBUTION WIDTH (test code = RDW) 16.3 % 11 .6-16.2 RED CELL DISTRIBUTION WIDTH SD (test code = RDW-SD) 55.4 fL 37.0-51.0 PLATELET COUNT (test code = PLT) 190 K/mm3 150-450 MEAN PLATELET VOLUME (test code = MPV) 11.0 fL 6.7-11.0 NEUTROPHIL % (test code = NT%) 84.9 % 39.0-69.0 IMMATURE GRANULOCYTE % (test code = IG%) 0.7 % 0.0-5.0 LYMPHOCYTE % (test code = LY%) 7.7 % 25.0-55.0 MONOCYTE % (test code = MO%) 5.5 % 0.0-10.0 EOSINOPHIL % (test code = EO%) 0.6 % 0.0-5.0 BASOPHIL % (test code = BA%) 0.6 % 0.0-1.0 NUCLEATED RBC % (test code = NRBC%) 0.3 % 0-0 NEUTROPHIL # (test code = NT#) 5.73 K/mm3 1.8-7.7 IMMATURE GRANULOCYTE # (test code = IG#) 0.05 x10 3/uL 0-0.03 LYMPHOCYTE # (test code = LY#) 0.52 K/mm3 1.0-5.0 MONOCYTE # (test code = MO#) 0.37 K/mm3 0-0.8 EOSINOPHIL # (test code = EO#) 0.04 K/mm3 0.0-0.5 BASOPHIL # (test code = BA#) 0.04 K/mm3 0.0-0.2 NUCLEATED RBC # (test code = NRBC#) 0.02 K/mm3 0.0-0.1 MANUAL DIFF REQUIRED (test code = MDIFF) NO, ONLY SCAN NEEDED DIFFERENTIAL [id number] 04:39:00* Test Item Value Reference Range Comments STAIN ACCEPTABILITY (test code = STN ACCEPTABLE) CABOT RINGS (test code = CAB) MORPHOLOGY COMMENT (test code = MOC) PLATELET ESTIMATE (test code = PLTEST) PLATELET MORPHOLOGY (test code = PLTMORPH) [id number] 19:58:00* Test Item Value Reference Range Comments GLUBED (test code = GLUBED) 72 mg/dL 74-106 Perf ormed by certified refinery operator reforming unit at [facility] - CTA ABD AORTA IF LWEX [id number] 17:57:00 Name: JOSHUA SANTIAGO [facility] : 1945 Age/S: 73 / F [address] [facility] Unit #: [id number] Loc: [place] [address] Phys: Isabel Corona Acct: [id number] Dis Date: Status: ADM IN PHONE #: [phone] Exam Date: 04/13/2019 1728 FAX #: [phone] Reason: PVD EXAMS: CPT CODE: [id number] [place] [id number] REASON FOR EXAM: PVD EXAM ORDER DATE: 04/13/2019 2:45 PM Ordering: PHIL Duron Attending:Olga Hearn MD Location:[facility] PROCEDURE: - CTA ABD AORTA IF LWEX RO COMPARISON: FINDINGS: Axial images of the abdomen and lower extremities runoff were obtained with IV contrast using CT angiogram protocol. Reconstructed sagittal and coronal images from the axial data were provided. Dose modulation, iterative reconstruction, and/or weight based adjustment of the MA/KV was utilized to reduce the radiation dose to as low as reasonably achievable. Maximum intensity pixel, Volume rendered, Surface shaded rendering, and 3D reconstructed images of the abdominal aorta and lower extremities runoff were provided for interpretation. Intravenous contrast: 100c of Omnipaque 370 Moderate atherosclerotic disease of the abdom inal aorta and iliac arteries. Patent left iliac artery stent. The renal a rteries are within normal limits. The celiac trunk is unremarkable. The hepatic and splenic arteries are unremarkable. 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 Unremarkable OG. IMPRESSION: 1. Diffuse severe high-grade disease of the right SFA with patent distal right SFA stent. 2 vessels runoff in the LORI and PURCHASE ORDER CHECKER to the right foot with patent dorsalis previous and plantar arteries. 2. Diffuse severe disease of the left SFA with high-grade stenosis of the distal left SFA. 2 vessels runoff in the LORI and PURCHASE ORDER CHECKER to the left foot with patent dorsalis pedis and plantar arteries Elec tronically Signed by Channing White on 04/13/2019 at 1757 Reported and signed by: Bharathi White M.D. PAGE 1 Signed Report (CONTINUED) Name: JOSHUA SANTIAGO [facility] : 1945 Age/S: 73 / F [address] Unit #: [id number] Loc: [place] [address] Phys: Isabel Corona Acct: [id number] Dis Date: Status: ADM IN PHONE #: [phone] Exam Date: 04/13/2019 172 8 FAX #: [phone] Reason: PVD EXAMS: CPT CODE: [id number] [place] [id number] <Continued> CC: Olga Hearn MD; Isabel Corona; Gage Tovar MD Technologist:Rose Marie Mercer RT(R),CT; CTDI: DLP: Trnscb Date/Time: 04/13/2019 (1757) CarlitaL Orig Print D/T: S: 04/13/2019 (1800) PAGE 2 Signed Report [id number] 16:43:00* Test Item Value Reference Range Comments GLUBED (test code = GLUBED) 263 mg/dL 74-106 [facility] certified refinery [facility] - SP VENOCAVAGM [id number] 15:01:00 Name: JOSHUA SANTIAGO [facility] : 1945 Age/S: 73 / F [address] Unit #: [id number] Loc: [place] [address] Phys: Olga Hearn MD Acct: [id number] Dis Date: Status: ADM IN PHONE #: [phone] Exam Date: 04/12/2019 1544 FAX #: [phone] Reason: / EXAMS: CPT CODE: [id number] SP VENOCAVAGM SUP [id number] Fluoro Time: DAP (Gy m2): Air Kerma (mGy): EXAM: Insertion of a tunneled central line with sonographic and fluoroscopic guidance; central venography and central venous angioplasty; INFORMATION: Patient with end-stage renal disease. Presents with left foot infection and needs long-term intravenous antibiotics. TECHNIQUE and findings: After obtaining informed consent, the patient was placed supine on the procedure table. 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 A patent and compressible left IJ was identified. Sonographic images were stored in PACS. The patient's skin in the left neck and upper chest region was then prepped and draped in the usual sterile fashion. Xylocaine was administered and using a micropuncture system the left IJ was accessed with sonographic guidance. An 018 guidewire was inserted. It coiled in the central portion of the left brachiocephalic vein and initially could not be advanced into the right atrium. The micropuncture sheath was inserted and central venography was performed. This showed a short to 60% stenosis of the central portion of the left brachiocephalic vein. A short 6 Bulgarian vascular access sheath was inserted and using a 5 Bulgarian Kumpe catheter and Glidewire was then successfully advanced through the central venous stenosis. A 10 mm angioplasty balloon was inserted and was then inflated. A tight waist was abolished after inflation of the balloon to 11 aureliano. 2. Overlapping inflations were performed. Follow-up venography showed luminal improvement. A subcutaneous tunnel was then created in the left infraclavicular region after application of additional lidocaine. A dual-lumen 6 Bulgarian tunneled hemodialysis catheter was then inserted and positioned with its tip in the SVC. Good blood return was noticed; the catheter was sutured to the skin and was flushed with hep arinized saline. No complications. IMPRESSION: 1. Successful insertion of a tunneled central line via left IJ access, alexsandra knowles sonographic and fluoroscopic guidance. 2. Central venography showed a short 60% stenosis of the central portion of the left brachiocephalic ve in. 3. Successful angioplasty of the central venous stenosis, which facilitated insertion of a tunneled central line. PHIL MIGUEL 1 Signed Report (CONTINUED) Name: JOSHUA SANTIAGO [facility] : [birth year] Age/S: 73 / F [address] Unit #: [id number] Loc: [place] [address] Phys: Olga Hearn MD Acct: [id number] Dis Date: Status: ADM IN PHONE #: [phone] Exam Date: 04/12/2019 1544 FAX #: [phone] Reason: / EXAMS: CPT CODE: [id number] SP VENOCAVAGM SUP [id number] Fluoro Time: DAP (Gy m2): Air Kerma (mGy): <Continued> Fluoroscopy Time: 192 sec CAK : 149.38 mGy DAP : 88253 mGy sq cm Location code: [facility] at 1501 Reported and signed by: Roberto Chin M.D. CC: Olga Hearn MD; Gage Tovar MD Technologist: [facility] Trninb Date/Time: 04/13/2019 (1501) Fabricio Orig Print D/T: S: 04/13/2019 (2873) PAGE 2 Signed Report - Trlml bl angio 1st [id number] 15:01:00 Name: JOSHUA SANTIAGO [facility] : 1945 Age/S: 73 / F [address] Unit #: [id number] Loc: [place] [address] Phys: Olga Hearn MD Acct: [id number] Dis Date: Status: ADM IN PHONE #: [phone] Exam Date: 04/12/2019 1544 FAX #: [phone] Reason: / EXAMS: CPT CODE: [id number] [place] 1[place] [address] Fluoro Time: 192 DAP (Gy m2): 35.514 Air Kerma (mGy): 149.3 EXAM: Insertion of a tunneled central line with sonographic and fluoroscopic guidance; central venography and central venous angioplasty; INFORMATION: Patient with end-stage renal disease. Presents with left foot infection and needs long-term int ravenous antibiotics. TECHNIQUE and findings: After obtainin g informed consent, the patient was placed supine on the procedure table. Ultrasound of the right neck showed chronic occlusion of the right interna l jugular vein. A patent and compressible left IJ was identified. Sonograp hic images were stored in PACS. The patient's skin in the left neck and upper chest region was then prepped and draped in the usual sterile fa shion. Xylocaine was administered and using a micropuncture system the lef t IJ was accessed with sonographic guidance. An 018 guidewire was inserted . It coiled in the central portion of the left brachiocephalic vein and in itially could not be advanced into the right atrium. The micropunctu re sheath was inserted and central venography was performed. This showed a short to 60% stenosis of the central portion of the left brachiocephalic vein. A short 6 Bulgarian vascular access sheath was inserted and using a 5 Bulgarian Kumpe catheter and Glidewire was then successfully advanced th rough the central venous stenosis. A 10 mm angioplasty balloon was inserte d and was then inflated. A tight waist was abolished after inflation of th e balloon to 11 aureliano. 2. Overlapping inflations were performed. Follow-up v enography showed luminal improvement. A subcutaneous tunnel was then created in the left infraclavicular region after application of additiona l lidocaine. A dual-lumen 6 Bulgarian tunneled hemodialysis catheter was then inserted and positioned with its tip in the SVC. Good blood return was noticed; the catheter was sutured to the skin and was flushed with hep arinized saline. No complications. IMPRESSION: 1. Successful insertion of a tunneled central line via left IJ access, in g sonographic and fluoroscopic guidance. 2. Central venography showed a short 60% stenosis of the central portion of the left brachiocephalic ve in. 3. Successful angioplasty of the central venous stenosis, which facilitated insertion of a tunneled central line. PHIL MIGUEL 1 Signed Report (CONTINUED) Name: JOSHUA SANTIAGO [facility] : [birth year] Age/S: 73 / F [address] [facility] Unit #: [id number] Loc: [place] [address] Phys: Olga Hearn MD Acct: [id number] Dis Date: Status: ADM IN PHONE #: [phone] Exam Date: 04/12/2019 1544 FAX #: [phone] Reason: / EXAMS: CPT CODE: [id number] [place] [address] [id number] Fluoro Time: 192 DAP (Gy m2): 35.5 14 Air Kerma (mGy): 149.3 <Continued> Fluoroscopy Time: 192 sec CAK : 149.38 mGy DAP : 49028 mGy sq cm Location code: [facility] at 1501 Reported and signed by: Roberto Chin M.D. CC: Olga Hearn MD; Gage Tovar MD Technologist: VIRGILIO SOTO [employer] Trnscb Date/Time: 04/13/2019 (1500) Fabricio Orig Print D/T: S: 04/13/2019 (2138) PAGE 2 Signed Report - [facility] [id number] 15:01:00 Name: JOSHUA SANTIAGO [facility] : 1945 Age/S: 73 / F [address] [facility] Unit #: [id number] Loc: [place] [address] Phys: April Hearn MD Acct: [id number] Di s Date: Status: ADM IN PHONE #: Exam Date: 04/12/2019 1544 FAX #: [phone] Reason: / EXAMS: CPT CODE: [id number] US GUIDANCE VAS ACCESS 13529 Fluoro Time: DAP (Gy m2 ): Air Kerma (mGy): EXAM: Insertion of a tunneled central line with sonographic and fluoroscopic guidance; central venography and ce ntral venous angioplasty; INFORMATION: Patient with end-stag e renal disease. Presents with left foot infection and needs long-term int ravenous antibiotics. TECHNIQUE and findings: After obtainin g informed consent, the patient was placed supine on the procedure table. Ultrasound of the right neck showed chronic occlusion of the right interna l jugular vein. A patent and compressible left IJ was identified. Sonograp hic images were stored in PACS. The patient's skin in the left neck and upper chest region was then prepped and draped in the usual sterile fa shion. Xylocaine was administered and using a micropuncture system the lef t IJ was accessed with sonographic guidance. An 018 guidewire was inserted . It coiled in the central portion of the left brachiocephalic vein and in itially could not be advanced into the right atrium. The micropunctu re sheath was inserted and central venography was performed. This showed a short to 60% stenosis of the central portion of the left brachiocephalic vein. A short 6 Bulgarian vascular access sheath was inserted and using a 5 Bulgarian Kumpe catheter and Glidewire was then successfully advanced th rough the central venous stenosis. A 10 mm angioplasty balloon was inserte d and was then inflated. A tight waist was abolished after inflation of th e balloon to 11 aureliano. 2. Overlapping inflations were performed. Follow-up v enography showed luminal improvement. A subcutaneous tunnel was then created in the left infraclavicular region after application of additiona l lidocaine. A dual-lumen 6 Bulgarian tunneled hemodialysis catheter was then inserted and positioned with its tip in the SVC. Good blood return was noticed; the catheter was sutured to the skin and was flushed with hep arinized saline. No complications. IMPRESSION: 1. Successful insertion of a tunneled central line via left IJ access, usin g sonographic and fluoroscopic guidance. 2. Central venography showed a short 60% stenosis of the central portion of the left brachiocephalic ve in. 3. Successful angioplasty of the central venous stenosis, which facilitated insertion of a tunneled central line. PHIL MIGUEL 1 Signed Report (CONTINUED) Name: JOSHUA SANTIAGO [facility] : [birth year] Age/S: 73 / F [address] [facility] Unit #: [id number] Loc: [place] [address] Phys: Olga Hearn MD Acct: [id number] Dis Date: Status: ADM IN PHONE #: Exam Date: 04/12/2019 1544 FAX #: [phone] Reason: / EXAMS: CPT CODE: [id number] [facility] ACCES S 75408 Fluoro Time: DAP (Gy m2): Air Kerma (mGy): <Continued> Fluoroscopy Time: 192 sec CAK : 149.38 mGy DAP : 85311 mGy sq cm Location code: [facility] at 1501 Reported and signed by: Roberto Chin M.D. CC: Olga Hearn MD; Gage Tovar MD Technologist: VIRGILIO SOTO [employer]GER Trnscb Date/Time: 04/13/2019 (1501) Luz MariaGRW Orig Print D/T: S: 04/13/2019 (7476) PAGE 2 Signed Report - SP FLUORO GUID CTRL ACC [id number] 15:01:00 Name: JOSHUA SANTIAGO [facility] SP : 1945 Age/S: 73 / F [address] Unit #: [id number] Loc: [place] [address] Phys: April Hearn MD Acct: [id number] Di s Date: Status: ADM IN PHONE #: Exam Date: 04/12/2019 1544 FAX #: Reason: / EXAMS: CPT CODE: [id number] SP FLUORO GUID CTRL ACC DEV [id number] Fluoro Time: 192 DAP (Gy m2 ): 35.514 Air Kerma (mGy): 149.3 EXAM: Insertion of a tunneled central line with sonographic and fluoroscopic guidance; central venography and ce ntral venous angioplasty; INFORMATION: Patient with end-stag e renal disease. Presents with left foot infection and needs long-term int ravenous antibiotics. TECHNIQUE and findings: After obtainin g informed consent, the patient was placed supine on the procedure table. Ultrasound of the right neck showed chronic occlusion of the right interna l jugular vein. A patent and compressible left IJ was identified. Sonograp hic images were stored in PACS. The patient's skin in the left neck and upper chest region was then prepped and draped in the usual sterile fa shion. Xylocaine was administered and using a micropuncture system the lef t IJ was accessed with sonographic guidance. An 018 guidewire was inserted . It coiled in the central portion of the left brachiocephalic vein and in itially could not be advanced into the right atrium. The micropunctu re sheath was inserted and central venography was performed. This showed a short to 60% stenosis of the central portion of the left brachiocephalic vein. A short 6 Bulgarian vascular access sheath was inserted and using a 5 Bulgarian Kumpe catheter and Glidewire was then successfully advanced th rough the central venous stenosis. A 10 mm angioplasty balloon was inserte d and was then inflated. A tight waist was abolished after inflation of th e balloon to 11 aureliano. 2. Overlapping inflations were performed. Follow-up v enography showed luminal improvement. A subcutaneous tunnel was then created in the left infraclavicular region after application of additiona l lidocaine. A dual-lumen 6 Bulgarian tunneled hemodialysis catheter was then inserted and positioned with its tip in the SVC. Good blood return was noticed; the catheter was sutured to the skin and was flushed with hep arinized saline. No complications. IMPRESSION: 1. Successful insertion of a tunneled central line via left IJ access, usin g sonographic and fluoroscopic guidance. 2. Central venography showed a short 60% stenosis of the central portion of the left brachiocephalic ve in. 3. Successful angioplasty of the central venous stenosis, which facilitated insertion of a tunneled central line. PHIL MIGUEL 1 Signed Report (CONTINUED) Name: JOSHUA SANTIAGO [facility] : [birth year] Age/S: 73 / F [address] [facility] Unit #: [id number] Loc: [place] [address] Phys: Olga Hearn MD Acct: [id number] Dis Date: Status: ADM IN PHONE #: Exam Date: 04/12/2019 1544 FAX #: [phone] Reason: / EXAMS: CPT CODE: [id number] SP FLUORO GUID CTRL AC C DEV [id number] Fluoro Time: 192 DAP (Gy m2): 35.5 14 Air Kerma (mGy): 149.3 <Continued> Fluoroscopy Time: 192 sec CAK : 149.38 mGy DAP : 08280 mGy sq cm Location code: [facility] at 1501 Reported and signed by: Roberto Chin M.D. CC: Olga Hearn MD; Gage Tovar MD Technologist: VIRGILIO SOTO [employer] MANAGER Trnscb Date/Time: 04/13/2019 (1506) Fabricio Orig Print D/T: S: 04/13/2019 (7183) PAGE 2 Signed Report [id number] 13:50:00* Test Item Value Reference Range Comments GLUBED (test code = GLUBED) 137 mg/dL 74-106 Perf ormed by certified refinery operator reforming unit at [facility] [id number] 12:56:00* Test Item Value Reference Range Comments GLUBED (test code = GLUBED) 160 mg/dL 74-106 [facility] certified refinery operator [facility] CBC W/AUTO [id number] 10:16:00* Test Item Value Reference Range Comments WHITE BLOOD CELL (test code = WBC) 6.5 K/mm3 4.5-12.5 RED BLOOD CELL (test code = RBC) 3.05 mill/mm3 3.7-5.2 HEMOGLOBIN (test code = HGB) 8.3 gram/dL 11.5-15.5 HEMATOCRIT (test code = HCT) 28.2 % 36.0-46.0 MEAN CELL VOLUME (test code = MCV) 92.5 fL 80-98 MEAN CELL HGB (test code = MCH) 27.2 picogram 27.0-33.0 MEAN CELL HGB CONCETRATION (test code = MCHC) 29.4 gram/dL 33 .0-36.0 RED CELL DISTRIBUTION WIDTH (test code = RDW) 16.0 % 11 .6-16.2 RED CELL DISTRIBUTION WIDTH SD (test code = RDW-SD) 54.3 fL 37.0-51.0 PLATELET COUNT (test code = PLT) 172 K/mm3 150-450 MEAN PLATELET VOLUME (test code = MPV) 11.3 fL 6.7-11.0 NEUTROPHIL % (test code = NT%) 81.1 % 39.0-69.0 IMMATURE GRANULOCYTE % (test code = IG%) 0.6 % 0.0-5.0 LYMPHOCYTE % (test code = LY%) 11.3 % 25.0-55.0 MONOCYTE % (test code = MO%) 5.7 % 0.0-10.0 EOSINOPHIL % (test code = EO%) 0.5 % 0.0-5.0 BASOPHIL % (test code = BA%) 0.8 % 0.0-1.0 NUCLEATED RBC % (test code = NRBC%) 0.0 % 0-0 NEUTROPHIL # (test code = NT#) 5.30 K/mm3 1.8-7.7 IMMATURE GRANULOCYTE # (test code = IG#) 0.04 x10 3/uL 0-0.03 LYMPHOCYTE # (test code = LY#) 0.74 K/mm3 1.0-5.0 MONOCYTE # (test code = MO#) 0.37 K/mm3 0-0.8 EOSINOPHIL # (test code = EO#) 0.03 K/mm3 0.0-0.5 BASOPHIL # (test code = BA#) 0.05 K/mm3 0.0-0.2 NUCLEATED RBC # (test code = NRBC#) 0.00 K/mm3 0.0-0.1 MANUAL DIFF REQUIRED (test code = MDIFF) NO, ONLY SCAN NEEDED DIFFERENTIAL [id number] 10:16:00* Test Item Value Reference Range Comments STAIN ACCEPTABILITY (test code = STN ACCEPTABLE) STAIN ACCEPTABL E HYPOCHROMIA (test code = HYPO) 1+ PLATELET ESTIMATE (test code = PLTEST) ADEQUATE PLATELET MORPHOLOGY (test code = PLTMORPH) SIZE VARIABLE CBC W/AUTO [id number] 09:15:00* Test Item Value Reference Range Comments WHITE BLOOD CELL (test code = WBC) 6.5 K/mm3 4.5-12.5 RED BLOOD CELL (test code = RBC) 3.05 mill/mm3 3.7-5.2 HEMOGLOBIN (test code = HGB) 8.3 gram/dL 11.5-15.5 HEMATOCRIT (test code = HCT) 28.2 % 36.0-46.0 MEAN CELL VOLUME (test code = MCV) 92.5 fL 80-98 MEAN CELL HGB (test code = MCH) 27.2 picogram 27.0-33.0 MEAN CELL HGB CONCETRATION (test code = MCHC) 29.4 gram/dL 33 .0-36.0 RED CELL DISTRIBUTION WIDTH (test code = RDW) 16.0 % 11 .6-16.2 RED CELL DISTRIBUTION WIDTH SD (test code = RDW-SD) 54.3 fL 37.0-51.0 PLATELET COUNT (test code = PLT) 172 K/mm3 150-450 MEAN PLATELET VOLUME (test code = MPV) 11.3 fL 6.7-11.0 NEUTROPHIL % (test code = NT%) 81.1 % 39.0-69.0 IMMATURE GRANULOCYTE % (test code = IG%) 0.6 % 0.0-5.0 LYMPHOCYTE % (test code = LY%) 11.3 % 25.0-55.0 MONOCYTE % (test code = MO%) 5.7 % 0.0-10.0 EOSINOPHIL % (test code = EO%) 0.5 % 0.0-5.0 BASOPHIL % (test code = BA%) 0.8 % 0.0-1.0 NUCLEATED RBC % (test code = NRBC%) 0.0 % 0-0 NEUTROPHIL # (test code = NT#) 5.30 K/mm3 1.8-7.7 IMMATURE GRANULOCYTE # (test code = IG#) 0.04 x10 3/uL 0-0.03 LYMPHOCYTE # (test code = LY#) 0.74 K/mm3 1.0-5.0 MONOCYTE # (test code = MO#) 0.37 K/mm3 0-0.8 EOSINOPHIL # (test code = EO#) 0.03 K/mm3 0.0-0.5 BASOPHIL # (test code = BA#) 0.05 K/mm3 0.0-0.2 NUCLEATED RBC # (test code = NRBC#) 0.00 K/mm3 0.0-0.1 MANUAL DIFF REQUIRED (test code = MDIFF) NO, ONLY SCAN NEEDED DIFFERENTIAL [id number] 09:15:00* Test Item Value Reference Range Comments STAIN ACCEPTABILITY (test code = STN ACCEPTABLE) CABOT RINGS (test code = CAB) MORPHOLOGY COMMENT (test code = MOC) PLATELET ESTIMATE (test code = PLTEST) PLATELET MORPHOLOGY (test code = PLTMORPH) CBC W/AUTO [id number] 09:15:00* Test Item Value Reference Range Comments WHITE BLOOD CELL (test code = WBC) 6.5 K/mm3 4.5-12.5 RED BLOOD CELL (test code = RBC) 3.05 mill/mm3 3.7-5.2 HEMOGLOBIN (test code = HGB) 8.3 gram/dL 11.5-15.5 HEMATOCRIT (test code = HCT) 28.2 % 36.0-46.0 MEAN CELL VOLUME (test code = MCV) 92.5 fL 80-98 MEAN CELL HGB (test code = MCH) 27.2 picogram 27.0-33.0 MEAN CELL HGB CONCETRATION (test code = MCHC) 29.4 gram/dL 33 .0-36.0 RED CELL DISTRIBUTION WIDTH (test code = RDW) 16.0 % 11 .6-16.2 RED CELL DISTRIBUTION WIDTH SD (test code = RDW-SD) 54.3 fL 37.0-51.0 PLATELET COUNT (test code = PLT) 172 K/mm3 150-450 MEAN PLATELET VOLUME (test code = MPV) 11.3 fL 6.7-11.0 NEUTROPHIL % (test code = NT%) 81.1 % 39.0-69.0 IMMATURE GRANULOCYTE % (test code = IG%) 0.6 % 0.0-5.0 LYMPHOCYTE % (test code = LY%) 11.3 % 25.0-55.0 MONOCYTE % (test code = MO%) 5.7 % 0.0-10.0 EOSINOPHIL % (test code = EO%) 0.5 % 0.0-5.0 BASOPHIL % (test code = BA%) 0.8 % 0.0-1.0 NUCLEATED RBC % (test code = NRBC%) 0.0 % 0-0 NEUTROPHIL # (test code = NT#) 5.30 K/mm3 1.8-7.7 IMMATURE GRANULOCYTE # (test code = IG#) 0.04 x10 3/uL 0-0.03 LYMPHOCYTE # (test code = LY#) 0.74 K/mm3 1.0-5.0 MONOCYTE # (test code = MO#) 0.37 K/mm3 0-0.8 EOSINOPHIL # (test code = EO#) 0.03 K/mm3 0.0-0.5 BASOPHIL # (test code = BA#) 0.05 K/mm3 0.0-0.2 NUCLEATED RBC # (test code = NRBC#) 0.00 K/mm3 0.0-0.1 MANUAL DIFF REQUIRED (test code = MDIFF) NO, ONLY SCAN NEEDED DIFFERENTIAL [id number] 09:15:00* Test Item Value Reference Range Comments STAIN ACCEPTABILITY (test code = STN ACCEPTABLE) CABOT RINGS (test code = CAB) MORPHOLOGY COMMENT (test code = MOC) PLATELET ESTIMATE (test code = PLTEST) PLATELET MORPHOLOGY (test code = PLTMORPH) CBC W/AUTO [id number] 09:15:00* Test Item Value Reference Range Comments WHITE BLOOD CELL (test code = WBC) 6.5 K/mm3 4.5-12.5 RED BLOOD CELL (test code = RBC) 3.05 mill/mm3 3.7-5.2 HEMOGLOBIN (test code = HGB) 8.3 gram/dL 11.5-15.5 HEMATOCRIT (test code = HCT) 28.2 % 36.0-46.0 MEAN CELL VOLUME (test code = MCV) 92.5 fL 80-98 MEAN CELL HGB (test code = MCH) 27.2 picogram 27.0-33.0 MEAN CELL HGB CONCETRATION (test code = MCHC) 29.4 gram/dL 33 .0-36.0 RED CELL DISTRIBUTION WIDTH (test code = RDW) 16.0 % 11 .6-16.2 RED CELL DISTRIBUTION WIDTH SD (test code = RDW-SD) 54.3 fL 37.0-51.0 PLATELET COUNT (test code = PLT) 172 K/mm3 150-450 MEAN PLATELET VOLUME (test code = MPV) 11.3 fL 6.7-11.0 NEUTROPHIL % (test code = NT%) 81.1 % 39.0-69.0 IMMATURE GRANULOCYTE % (test code = IG%) 0.6 % 0.0-5.0 LYMPHOCYTE % (test code = LY%) 11.3 % 25.0-55.0 MONOCYTE % (test code = MO%) 5.7 % 0.0-10.0 EOSINOPHIL % (test code = EO%) 0.5 % 0.0-5.0 BASOPHIL % (test code = BA%) 0.8 % 0.0-1.0 NUCLEATED RBC % (test code = NRBC%) 0.0 % 0-0 NEUTROPHIL # (test code = NT#) 5.30 K/mm3 1.8-7.7 IMMATURE GRANULOCYTE # (test code = IG#) 0.04 x10 3/uL 0-0.03 LYMPHOCYTE # (test code = LY#) 0.74 K/mm3 1.0-5.0 MONOCYTE # (test code = MO#) 0.37 K/mm3 0-0.8 EOSINOPHIL # (test code = EO#) 0.03 K/mm3 0.0-0.5 BASOPHIL # (test code = BA#) 0.05 K/mm3 0.0-0.2 NUCLEATED RBC # (test code = NRBC#) 0.00 K/mm3 0.0-0.1 MANUAL DIFF REQUIRED (test code = MDIFF) NO, ONLY SCAN NEEDED DIFFERENTIAL [id number] 09:15:00* Test Item Value Reference Range Comments STAIN ACCEPTABILITY (test code = STN ACCEPTABLE) MORPHOLOGY COMMENT (test code = MOC) PLATELET ESTIMATE (test code = PLTEST) PLATELET MORPHOLOGY (test code = PLTMORPH) CBC W/AUTO [id number] 09:15:00* Test Item Value Reference Range Comments WHITE BLOOD CELL (test code = WBC) 6.5 K/mm3 4.5-12.5 RED BLOOD CELL (test code = RBC) 3.05 mill/mm3 3.7-5.2 HEMOGLOBIN (test code = HGB) 8.3 gram/dL 11.5-15.5 HEMATOCRIT (test code = HCT) 28.2 % 36.0-46.0 MEAN CELL VOLUME (test code = MCV) 92.5 fL 80-98 MEAN CELL HGB (test code = MCH) 27.2 picogram 27.0-33.0 MEAN CELL HGB CONCETRATION (test code = MCHC) 29.4 gram/dL 33 .0-36.0 RED CELL DISTRIBUTION WIDTH (test code = RDW) 16.0 % 11 .6-16.2 RED CELL DISTRIBUTION WIDTH SD (test code = RDW-SD) 54.3 fL 37.0-51.0 PLATELET COUNT (test code = PLT) 172 K/mm3 150-450 MEAN PLATELET VOLUME (test code = MPV) 11.3 fL 6.7-11.0 NEUTROPHIL % (test code = NT%) 81.1 % 39.0-69.0 IMMATURE GRANULOCYTE % (test code = IG%) 0.6 % 0.0-5.0 LYMPHOCYTE % (test code = LY%) 11.3 % 25.0-55.0 MONOCYTE % (test code = MO%) 5.7 % 0.0-10.0 EOSINOPHIL % (test code = EO%) 0.5 % 0.0-5.0 BASOPHIL % (test code = BA%) 0.8 % 0.0-1.0 NUCLEATED RBC % (test code = NRBC%) 0.0 % 0-0 NEUTROPHIL # (test code = NT#) 5.30 K/mm3 1.8-7.7 IMMATURE GRANULOCYTE # (test code = IG#) 0.04 x10 3/uL 0-0.03 LYMPHOCYTE # (test code = LY#) 0.74 K/mm3 1.0-5.0 MONOCYTE # (test code = MO#) 0.37 K/mm3 0-0.8 EOSINOPHIL # (test code = EO#) 0.03 K/mm3 0.0-0.5 BASOPHIL # (test code = BA#) 0.05 K/mm3 0.0-0.2 NUCLEATED RBC # (test code = NRBC#) 0.00 K/mm3 0.0-0.1 MANUAL DIFF REQUIRED (test code = MDIFF) NO, ONLY SCAN NEEDED DIFFERENTIAL [id number] 09:15:00* Test Item Value Reference Range Comments STAIN ACCEPTABILITY (test code = STN ACCEPTABLE) CABOT RINGS (test code = CAB) MORPHOLOGY COMMENT (test code = MOC) PLATELET ESTIMATE (test code = PLTEST) PLATELET MORPHOLOGY (test code = PLTMORPH) BASIC METABOLIC [id number] 09:12:00* Test Item Value Reference Range Comments SODIUM (test code = NA) 142 mmol/L 136-145 POTASSIUM (test code = K) 4.0 mmol/L 3.5-5.1 CHLORIDE (test code = CL) 103.0 mmol/L 98-107 CARBON DIOXIDE (test code = CO2) 28.0 mmol/L 21-32 ANION GAP (test code = GAP) 15.0 10-20 GLUCOSE (test code = GLU) 170 mg/dL 74-106 BLOOD UREA NITROGEN (test code = BUN) 33 mg/dL 7-18 GLOMERULAR FILTRATION RATE (test code = GFR) 6 mL/min >=6 0 Estimated GFR by using Modified MDRD formula.Chronic kidney disease is defined as either kidney damageor GFR <60 mL/min/1.73 m2 for >3 months. CREATININE (test code = CREAT) 6.60 mg/dL 0.55-1.02 * *Note change in reference range due to change in reagent. BUN/CREATININE RATIO (test code = BUN/CREA) 5.0 10-2 0 CALCIUM (test code = CA) 8.0 mg/dL 8.5-10.1 BASIC METABOLIC [id number] 09:10:00* Test Item Value Reference Range Comments SODIUM (test code = NA) 142 mmol/L 136-145 POTASSIUM (test code = K) 4.0 mmol/L 3.5-5.1 CHLORIDE (test code = CL) 103.0 mmol/L 98-107 CARBON DIOXIDE (test code = CO2) mmol/L 21-32 ANION GAP (test code = GAP) 10-20 GLUCOSE (test code = GLU) mg/dL 74-106 BLOOD UREA NITROGEN (test code = BUN) mg/dL 7-18 GLOMERULAR FILTRATION RATE (test code = GFR) mL/min >=6 0 CREATININE (test code = CREAT) mg/dL 0.55-1.02 BUN/CREATININE RATIO (test code = BUN/CREA) 10-2 0 CALCIUM (test code = CA) mg/dL 8.5-10.1 [id number] 20:50:00* Test Item Value Reference Range Comments GLUBED (test code = GLUBED) 191 mg/dL 74-106 Perf ormed by certified refinery operator reforming unit at [facility] - MRI LOW EXT W/O CONT [id number] 18:24:00 FAX: Olga Hearn MD [phone] [place]: St: [facility] FAX: Gage Ruelas MD [phone] Name: JOSHUA SANTIAGO [facility] : 1945 Age/S: 73/F [address] [facility] Unit #: [id number] Loc: [id number] [place] [address] Phys: Olga Hearn MD Acct: [id number] Dis Date: Status: ADM IN PHONE #: [phone] Exam Date: 04/12/2019 1736 FAX #: [phone] Reason: RIGHT FOOT EVAL, CONC ALEX FOR OSTEO EXAMS: CPT CODE: [id number] MRI LOW EXT W/[place] [id number] REASON FOR EXAM: RIGHT FOOT EVAL, CONCERN FOR OSTEO Exam Order Date: 04/12/2019 10:20 AM Ordering: Olga Hearn MD Attending:Olga Hearn MD Location:[facility] misbah: Procedure: - MRI LOW EXT W/O CONT RT FINDINGS : Multiplanar images of the right foot were obtained in in T1, T2, and pro ton density with fat saturation. No IV gadolinium was given. Lack of normal tissues within the distal half of the right 1st digit no prem suggestive of soft tissue necrosis with probable exposure of the dista l tuft. No abnormal bone marrow edema to suggest osteomyelitis. Diffuse inflammation of the left foot noted. There is a soft tissue cyst located between the 1st and 2nd metatarsals measuring 2 cm. The joint spaces are maintained. No evidence of abscess. IMPRESSION: Erosion of soft tissue in the distal tuft of the right great toe suggestive of necrosis with probable exposure of the distal tuft. No evidence of osteomyeliti s. 2 cm cyst located between the 1st and 2nd metatarsals. E lectronically Signed by Channing hWite on 04/12/2019 at 1824 Reported and signed by: Bharathi White M.D. CC: Olga Hearn MD; Gage Tovar MD Technologist: Basilio Marino(Jake)(MR) Trnscrd Date/Time/By: 04/12/2019 (1823) : By: Nae Orig Print D/T: S: 04/12/2019 (1826) PAGE 1 Signed Report - XR CHEST 1 V 2019-04-12 17:00:00 FAX: Olga Hearn MD [phone] [place]: B St: ADM FAX: Gage Ruelas MD [phone] Name: JOSHUA SANTIAGO [facility] : 1945 Age/S: 73/F [address] Unit #: [id number] Loc: V.40[address] [place] [address] Phys: Roberto Chin MD Acct: [id number] Dis Date: Status: ADM IN PHONE #: [phone] Exam Date: 04/12/2019 1630 FAX #: [phone] Reason: L foot infection; st.p. central line; EXAMS: CPT CODE: [id number] XR CHEST 1 V [id number] REASON FOR EXAM: L foot infection; st.p. central line; EXAM ORDER DATE: 04/12/2019 4:03 PM Ordering: Roberto Chin MD Attending:Olga Hearn MD Location:[facility] PROCEDURE: - XR CHEST 1 V COMPARISON: FINDINGS: Portable AP frontal view of the chest obtained at 4:25 PM shows clear lungs without evidence of consolidation. There is no evidence of effusion. The heart size is minimally enlarged. Pulmonary vasculatures are unremarkable. IMPRESSION: Left IJ tunneled central line tip is in the SVC at 1700 Reported and signed by: Bharathi White M.D. CC: Olga Hearn MD; Gage Tovar MD Technologist: JACOB REINOSO, RT(R) Trnscrd Date/Time/By: 04/12/2019 (1700) : By: Nae Orig Print D/T: S: 04/12/2019 (1703) PAGE 1 Signed Report [id number] 16:52:00* Test Item Value Reference Range Comments GLUBED (test code = GLUBED) 267 mg/dL 74-106 [facility] [id number] 16:41:00* Test Item Value Reference Range Comments GLUBED (test code = GLUBED) 228 mg/dL 74-106 [facility] certified refinery operator [facility] PROTHROMBIN [id number] 13:40:00* Test Item Value Reference Range Comments PROTHROMBIN TIME PATIENT (test code = PTP) 13.0 seconds 9.0-1 4.0 INTERNATIONAL NORMAL RATIO (test code = INR) 1.1 0.8 -1.2 The therapeutic range for oral anticoagulant therapy formost indications is an international normalized ratio (INR)of between 2.0 and 3.0. The recommended therapeutic INRrange for various clinical situations is listed below: Clinical Situation INR range Pulmonary e mbolism treatment (2.0-3.0)Venous thrombosis treatmentVenous thrombosis prophylaxis (high risk surgery)Prevention of systemic embolism from: Acute myocardial infarction Valvular heart disease Atrial fibrillation Mechanical prosthetic heart valves (2.5-3.5) IS PATIENT ON ANTICOAGULANTS? NCOMMENTS TO ELECTRICIAN: NEED STAT FOR SURGERY C OMMENTS TO ELECTRICIAN: NEED STAT FOR SURGERYTHROMBOPLASTIN TIME PARTIAL 2019-04-12 13:40:00* Test Item Value Reference Range Comments THROMBOPLASTIN TIME PARTIAL (test code = PTT) 23.4 seconds 25 .0-36.5 IS PATIENT ON ANTICOAGULANTS? NCOMMENTS TO ELECTRICIAN: NEED STAT FOR SURGERY C OMMENTS TO ELECTRICIAN: NEED STAT FOR [id number] 08:56:00* Test Item Value Reference Range Comments GLUBED (test code = GLUBED) 159 mg/dL 74-106 [facility] refinery [facility] AG HEPAT B [id number] 06:51:00* Test Item Value Reference Range Comments AG HEPAT B SURF (test code = HBSAG) Nonreactive Index Nonreactiv e CBC W/AUTO [id number] 03:33:00* Test Item Value Reference Range Comments WHITE BLOOD CELL (test code = WBC) 6.4 K/mm3 4.5-12.5 RED BLOOD CELL (test code = RBC) 3.18 mill/mm3 3.7-5.2 HEMOGLOBIN (test code = HGB) 8.7 gram/dL 11.5-15.5 HEMATOCRIT (test code = HCT) 29.3 % 36.0-46.0 MEAN CELL VOLUME (test code = MCV) 92.1 fL 80-98 MEAN CELL HGB (test code = MCH) 27.4 picogram 27.0-33.0 MEAN CELL HGB CONCETRATION (test code = MCHC) 29.7 gram/dL 33 .0-36.0 RED CELL DISTRIBUTION WIDTH (test code = RDW) 15.9 % 11 .6-16.2 RED CELL DISTRIBUTION WIDTH SD (test code = RDW-SD) 54.0 fL 37.0-51.0 PLATELET COUNT (test code = PLT) 157 K/mm3 150-450 MEAN PLATELET VOLUME (test code = MPV) 10.9 fL 6.7-11.0 NEUTROPHIL % (test code = NT%) 74.1 % 39.0-69.0 IMMATURE GRANULOCYTE % (test code = IG%) 0.5 % 0.0-5.0 LYMPHOCYTE % (test code = LY%) 15.4 % 25.0-55.0 MONOCYTE % (test code = MO%) 8.6 % 0.0-10.0 EOSINOPHIL % (test code = EO%) 0.6 % 0.0-5.0 BASOPHIL % (test code = BA%) 0.8 % 0.0-1.0 NUCLEATED RBC % (test code = NRBC%) 0.0 % 0-0 NEUTROPHIL # (test code = NT#) 4.76 K/mm3 1.8-7.7 IMMATURE GRANULOCYTE # (test code = IG#) 0.03 x10 3/uL 0-0.03 LYMPHOCYTE # (test code = LY#) 0.99 K/mm3 1.0-5.0 MONOCYTE # (test code = MO#) 0.55 K/mm3 0-0.8 EOSINOPHIL # (test code = EO#) 0.04 K/mm3 0.0-0.5 BASOPHIL # (test code = BA#) 0.05 K/mm3 0.0-0.2 NUCLEATED RBC # (test code = NRBC#) 0.00 K/mm3 0.0-0.1 MANUAL DIFF REQUIRED (test code = MDIFF) NO, ONLY SCAN NEEDED DIFFERENTIAL [id number] 03:33:00* Test Item Value Reference Range Comments STAIN ACCEPTABILITY (test code = STN ACCEPTABLE) STAIN ACCEPTABL E POLYCHROMASIA (test code = POLC) 1+ POIKILOCYTOSIS (test code = POIK) 1+ OVALOCYTES (test code = OVAL) 1+ PLATELET ESTIMATE (test code = PLTEST) ADEQUATE PLATELET MORPHOLOGY (test code = PLTMORPH) NORMAL COMPREHENSIVE METABOLIC [id number] 03:25:00* Test Item Value Reference Range Comments SODIUM (test code = NA) 143 mmol/L 136-145 POTASSIUM (test code = K) 3.2 mmol/L 3.5-5.1 CHLORIDE (test code = CL) 105.0 mmol/L 98-107 CARBON DIOXIDE (test code = CO2) 32.0 mmol/L 21-32 ANION GAP (test code = GAP) 9.2 10-20 GLUCOSE (test code = GLU) 114 mg/dL 74-106 BLOOD UREA NITROGEN (test code = BUN) 22 mg/dL 7-18 GLOMERULAR FILTRATION RATE (test code = GFR) 9 mL/min >=6 0 Estimated GFR by using Modified MDRD formula.Chronic kidney disease is defined as either kidney damageor GFR <60 mL/min/1.73 m2 for >3 months. CREATININE (test code = CREAT) 5.00 mg/dL 0.55-1.02 * *Note change in reference range due to change in reagent. BUN/CREATININE RATIO (test code = BUN/CREA) 4.4 10-2 0 TOTAL PROTEIN (test code = PROT) 6.5 gram/dL 6.4-8.2 ALBUMIN (test code = ALB) 2.3 g/dL 3.4-5.0 GLOBULIN (test code = GLOB) 4.2 gram/dL 2.7-4.2 ALBUMIN/GLOBULIN RATIO (test code = A/G) 0.6 0.75-1. 50 CALCIUM (test code = CA) 8.3 mg/dL 8.5-10.1 BILIRUBIN TOTAL (test code = BILT) 0.50 mg/dL 0.0-1.0 SGOT/AST (test code = AST) 9 IUnit/L 15-37 SGPT/ALT (test code = ALT) 7 IUnit/L 12-78 ALKALINE PHOSPHATASE TOTAL (test code = ALKP) 92 IUnit/L 45 -117 Note change in reference range due to change in reagent. CBC W/AUTO [id number] 03:15:00* Test Item Value Reference Range Comments WHITE BLOOD CELL (test code = WBC) 6.4 K/mm3 4.5-12.5 RED BLOOD CELL (test code = RBC) 3.18 mill/mm3 3.7-5.2 HEMOGLOBIN (test code = HGB) 8.7 gram/dL 11.5-15.5 HEMATOCRIT (test code = HCT) 29.3 % 36.0-46.0 MEAN CELL VOLUME (test code = MCV) 92.1 fL 80-98 MEAN CELL HGB (test code = MCH) 27.4 picogram 27.0-33.0 MEAN CELL HGB CONCETRATION (test code = MCHC) 29.7 gram/dL 33 .0-36.0 RED CELL DISTRIBUTION WIDTH (test code = RDW) 15.9 % 11 .6-16.2 RED CELL DISTRIBUTION WIDTH SD (test code = RDW-SD) 54.0 fL 37.0-51.0 PLATELET COUNT (test code = PLT) 157 K/mm3 150-450 MEAN PLATELET VOLUME (test code = MPV) 10.9 fL 6.7-11.0 NEUTROPHIL % (test code = NT%) 74.1 % 39.0-69.0 IMMATURE GRANULOCYTE % (test code = IG%) 0.5 % 0.0-5.0 LYMPHOCYTE % (test code = LY%) 15.4 % 25.0-55.0 MONOCYTE % (test code = MO%) 8.6 % 0.0-10.0 EOSINOPHIL % (test code = EO%) 0.6 % 0.0-5.0 BASOPHIL % (test code = BA%) 0.8 % 0.0-1.0 NUCLEATED RBC % (test code = NRBC%) 0.0 % 0-0 NEUTROPHIL # (test code = NT#) 4.76 K/mm3 1.8-7.7 IMMATURE GRANULOCYTE # (test code = IG#) 0.03 x10 3/uL 0-0.03 LYMPHOCYTE # (test code = LY#) 0.99 K/mm3 1.0-5.0 MONOCYTE # (test code = MO#) 0.55 K/mm3 0-0.8 EOSINOPHIL # (test code = EO#) 0.04 K/mm3 0.0-0.5 BASOPHIL # (test code = BA#) 0.05 K/mm3 0.0-0.2 NUCLEATED RBC # (test code = NRBC#) 0.00 K/mm3 0.0-0.1 MANUAL DIFF REQUIRED (test code = MDIFF) NO, ONLY SCAN NEEDED DIFFERENTIAL [id number] 03:15:00* Test Item Value Reference Range Comments STAIN ACCEPTABILITY (test code = STN ACCEPTABLE) CABOT RINGS (test code = CAB) MORPHOLOGY COMMENT (test code = MOC) PLATELET ESTIMATE (test code = PLTEST) PLATELET MORPHOLOGY (test code = PLTMORPH) CBC W/AUTO [id number] 03:15:00* Test Item Value Reference Range Comments WHITE BLOOD CELL (test code = WBC) 6.4 K/mm3 4.5-12.5 RED BLOOD CELL (test code = RBC) 3.18 mill/mm3 3.7-5.2 HEMOGLOBIN (test code = HGB) 8.7 gram/dL 11.5-15.5 HEMATOCRIT (test code = HCT) 29.3 % 36.0-46.0 MEAN CELL VOLUME (test code = MCV) 92.1 fL 80-98 MEAN CELL HGB (test code = MCH) 27.4 picogram 27.0-33.0 MEAN CELL HGB CONCETRATION (test code = MCHC) 29.7 gram/dL 33 .0-36.0 RED CELL DISTRIBUTION WIDTH (test code = RDW) 15.9 % 11 .6-16.2 RED CELL DISTRIBUTION WIDTH SD (test code = RDW-SD) 54.0 fL 37.0-51.0 PLATELET COUNT (test code = PLT) 157 K/mm3 150-450 MEAN PLATELET VOLUME (test code = MPV) 10.9 fL 6.7-11.0 NEUTROPHIL % (test code = NT%) 74.1 % 39.0-69.0 IMMATURE GRANULOCYTE % (test code = IG%) 0.5 % 0.0-5.0 LYMPHOCYTE % (test code = LY%) 15.4 % 25.0-55.0 MONOCYTE % (test code = MO%) 8.6 % 0.0-10.0 EOSINOPHIL % (test code = EO%) 0.6 % 0.0-5.0 BASOPHIL % (test code = BA%) 0.8 % 0.0-1.0 NUCLEATED RBC % (test code = NRBC%) 0.0 % 0-0 NEUTROPHIL # (test code = NT#) 4.76 K/mm3 1.8-7.7 IMMATURE GRANULOCYTE # (test code = IG#) 0.03 x10 3/uL 0-0.03 LYMPHOCYTE # (test code = LY#) 0.99 K/mm3 1.0-5.0 MONOCYTE # (test code = MO#) 0.55 K/mm3 0-0.8 EOSINOPHIL # (test code = EO#) 0.04 K/mm3 0.0-0.5 BASOPHIL # (test code = BA#) 0.05 K/mm3 0.0-0.2 NUCLEATED RBC # (test code = NRBC#) 0.00 K/mm3 0.0-0.1 MANUAL DIFF REQUIRED (test code = MDIFF) NO, ONLY SCAN NEEDED DIFFERENTIAL [id number] 03:15:00* Test Item Value Reference Range Comments STAIN ACCEPTABILITY (test code = STN ACCEPTABLE) CABOT RINGS (test code = CAB) MORPHOLOGY COMMENT (test code = MOC) PLATELET ESTIMATE (test code = PLTEST) PLATELET MORPHOLOGY (test code = PLTMORPH) CBC W/AUTO [id number] 03:15:00* Test Item Value Reference Range Comments WHITE BLOOD CELL (test code = WBC) 6.4 K/mm3 4.5-12.5 RED BLOOD CELL (test code = RBC) 3.18 mill/mm3 3.7-5.2 HEMOGLOBIN (test code = HGB) 8.7 gram/dL 11.5-15.5 HEMATOCRIT (test code = HCT) 29.3 % 36.0-46.0 MEAN CELL VOLUME (test code = MCV) 92.1 fL 80-98 MEAN CELL HGB (test code = MCH) 27.4 picogram 27.0-33.0 MEAN CELL HGB CONCETRATION (test code = MCHC) 29.7 gram/dL 33 .0-36.0 RED CELL DISTRIBUTION WIDTH (test code = RDW) 15.9 % 11 .6-16.2 RED CELL DISTRIBUTION WIDTH SD (test code = RDW-SD) 54.0 fL 37.0-51.0 PLATELET COUNT (test code = PLT) 157 K/mm3 150-450 MEAN PLATELET VOLUME (test code = MPV) 10.9 fL 6.7-11.0 NEUTROPHIL % (test code = NT%) 74.1 % 39.0-69.0 IMMATURE GRANULOCYTE % (test code = IG%) 0.5 % 0.0-5.0 LYMPHOCYTE % (test code = LY%) 15.4 % 25.0-55.0 MONOCYTE % (test code = MO%) 8.6 % 0.0-10.0 EOSINOPHIL % (test code = EO%) 0.6 % 0.0-5.0 BASOPHIL % (test code = BA%) 0.8 % 0.0-1.0 NUCLEATED RBC % (test code = NRBC%) 0.0 % 0-0 NEUTROPHIL # (test code = NT#) 4.76 K/mm3 1.8-7.7 IMMATURE GRANULOCYTE # (test code = IG#) 0.03 x10 3/uL 0-0.03 LYMPHOCYTE # (test code = LY#) 0.99 K/mm3 1.0-5.0 MONOCYTE # (test code = MO#) 0.55 K/mm3 0-0.8 EOSINOPHIL # (test code = EO#) 0.04 K/mm3 0.0-0.5 BASOPHIL # (test code = BA#) 0.05 K/mm3 0.0-0.2 NUCLEATED RBC # (test code = NRBC#) 0.00 K/mm3 0.0-0.1 MANUAL DIFF REQUIRED (test code = MDIFF) NO, ONLY SCAN NEEDED DIFFERENTIAL [id number] 03:15:00* Test Item Value Reference Range Comments STAIN ACCEPTABILITY (test code = STN ACCEPTABLE) MORPHOLOGY COMMENT (test code = MOC) PLATELET ESTIMATE (test code = PLTEST) PLATELET MORPHOLOGY (test code = PLTMORPH) COMPREHENSIVE METABOLIC [id number] 03:15:00* Test Item Value Reference Range Comments SODIUM (test code = NA) 143 mmol/L 136-145 POTASSIUM (test code = K) 3.2 mmol/L 3.5-5.1 CHLORIDE (test code = CL) 105.0 mmol/L 98-107 CARBON DIOXIDE (test code = CO2) mmol/L 21-32 ANION GAP (test code = GAP) 10-20 GLUCOSE (test code = GLU) mg/dL 74-106 BLOOD UREA NITROGEN (test code = BUN) mg/dL 7-18 GLOMERULAR FILTRATION RATE (test code = GFR) mL/min >=6 0 CREATININE (test code = CREAT) mg/dL 0.55-1.02 BUN/CREATININE RATIO (test code = BUN/CREA) 10-2 0 TOTAL PROTEIN (test code = PROT) gram/dL 6.4-8.2 ALBUMIN (test code = ALB) g/dL 3.4-5.0 GLOBULIN (test code = GLOB) gram/dL 2.7-4.2 ALBUMIN/GLOBULIN RATIO (test code = A/G) 0.75-1. 50 CALCIUM (test code = CA) mg/dL 8.5-10.1 BILIRUBIN TOTAL (test code = BILT) mg/dL 0.0-1.0 SGOT/AST (test code = AST) IUnit/L 15-37 SGPT/ALT (test code = ALT) IUnit/L 12-78 ALKALINE PHOSPHATASE TOTAL (test code = ALKP) IUnit/L 45 -117 CBC W/AUTO [id number] 03:15:00* Test Item Value Reference Range Comments WHITE BLOOD CELL (test code = WBC) 6.4 K/mm3 4.5-12.5 RED BLOOD CELL (test code = RBC) 3.18 mill/mm3 3.7-5.2 HEMOGLOBIN (test code = HGB) 8.7 gram/dL 11.5-15.5 HEMATOCRIT (test code = HCT) 29.3 % 36.0-46.0 MEAN CELL VOLUME (test code = MCV) 92.1 fL 80-98 MEAN CELL HGB (test code = MCH) 27.4 picogram 27.0-33.0 MEAN CELL HGB CONCETRATION (test code = MCHC) 29.7 gram/dL 33 .0-36.0 RED CELL DISTRIBUTION WIDTH (test code = RDW) 15.9 % 11 .6-16.2 RED CELL DISTRIBUTION WIDTH SD (test code = RDW-SD) 54.0 fL 37.0-51.0 PLATELET COUNT (test code = PLT) 157 K/mm3 150-450 MEAN PLATELET VOLUME (test code = MPV) 10.9 fL 6.7-11.0 NEUTROPHIL % (test code = NT%) 74.1 % 39.0-69.0 IMMATURE GRANULOCYTE % (test code = IG%) 0.5 % 0.0-5.0 LYMPHOCYTE % (test code = LY%) 15.4 % 25.0-55.0 MONOCYTE % (test code = MO%) 8.6 % 0.0-10.0 EOSINOPHIL % (test code = EO%) 0.6 % 0.0-5.0 BASOPHIL % (test code = BA%) 0.8 % 0.0-1.0 NUCLEATED RBC % (test code = NRBC%) 0.0 % 0-0 NEUTROPHIL # (test code = NT#) 4.76 K/mm3 1.8-7.7 IMMATURE GRANULOCYTE # (test code = IG#) 0.03 x10 3/uL 0-0.03 LYMPHOCYTE # (test code = LY#) 0.99 K/mm3 1.0-5.0 MONOCYTE # (test code = MO#) 0.55 K/mm3 0-0.8 EOSINOPHIL # (test code = EO#) 0.04 K/mm3 0.0-0.5 BASOPHIL # (test code = BA#) 0.05 K/mm3 0.0-0.2 NUCLEATED RBC # (test code = NRBC#) 0.00 K/mm3 0.0-0.1 MANUAL DIFF REQUIRED (test code = MDIFF) NO, ONLY SCAN NEEDED DIFFERENTIAL [id number] 03:15:00* Test Item Value Reference Range Comments STAIN ACCEPTABILITY (test code = STN ACCEPTABLE) CABOT RINGS (test code = CAB) MORPHOLOGY COMMENT (test code = MOC) PLATELET ESTIMATE (test code = PLTEST) PLATELET MORPHOLOGY (test code = PLTMORPH) SED RATE [id number] 02:12:00* Test Item Value Reference Range Comments SED RATE WESTERGREN (test code = SEDW) 72 mm/hr 0-20 SED [id number] 02:12:00* Test Item Value Reference Range Comments SED RATE (test code = SEDW) 72 mm/hr 0-20 MILLICENT ROBE METHOD: NORMAL RANGE FOR MEN: 0-9 MM/HR WOMAN: 0-20 MM/HR COMPREHENSIVE METABOLIC [id number] 23:58:00* Test Item Value Reference Range Comments SODIUM (test code = NA) 144 mmol/L 136-145 POTASSIUM (test code = K) 3.4 mmol/L 3.5-5.1 CHLORIDE (test code = CL) 106.0 mmol/L 98-107 CARBON DIOXIDE (test code = CO2) 34.0 mmol/L 21-32 ANION GAP (test code = GAP) 7.4 10-20 GLUCOSE (test code = GLU) 128 mg/dL 74-106 BLOOD UREA NITROGEN (test code = BUN) 21 mg/dL 7-18 GLOMERULAR FILTRATION RATE (test code = GFR) 9 mL/min >=6 0 Estimated GFR by using Modified MDRD formula.Chronic kidney disease is defined as either kidney damageor GFR <60 mL/min/1.73 m2 for >3 months. CREATININE (test code = CREAT) 4.60 mg/dL 0.55-1.02 * *Note change in reference range due to change in reagent. BUN/CREATININE RATIO (test code = BUN/CREA) 4.6 10-2 0 TOTAL PROTEIN (test code = PROT) 6.2 gram/dL 6.4-8.2 ALBUMIN (test code = ALB) 2.3 g/dL 3.4-5.0 GLOBULIN (test code = GLOB) 3.9 gram/dL 2.7-4.2 ALBUMIN/GLOBULIN RATIO (test code = A/G) 0.6 0.75-1. 50 CALCIUM (test code = CA) 8.2 mg/dL 8.5-10.1 BILIRUBIN TOTAL (test code = BILT) 0.40 mg/dL 0.0-1.0 SGOT/AST (test code = AST) 8 IUnit/L 15-37 SGPT/ALT (test code = ALT) 6 IUnit/L 12-78 ALKALINE PHOSPHATASE TOTAL (test code = ALKP) 89 IUnit/L 45 -117 Note change in reference range due to change in reagent. C REACTIVE [id number] 23:48:00* Test Item Value Reference Range Comments C REACTIVE PROTEIN (test code = CRP) 10.80 mg/dL 0-0.3 COMPREHENSIVE METABOLIC [id number] 23:47:00* Test Item Value Reference Range Comments SODIUM (test code = NA) mmol/L 136-145 POTASSIUM (test code = K) mmol/L 3.5-5.1 CHLORIDE (test code = CL) mmol/L 98-107 CARBON DIOXIDE (test code = CO2) mmol/L 21-32 ANION GAP (test code = GAP) 10-20 GLUCOSE (test code = GLU) mg/dL 74-106 BLOOD UREA NITROGEN (test code = BUN) mg/dL 7-18 GLOMERULAR FILTRATION RATE (test code = GFR) mL/min >=6 0 CREATININE (test code = CREAT) mg/dL 0.55-1.02 BUN/CREATININE RATIO (test code = BUN/CREA) 10-2 0 TOTAL PROTEIN (test code = PROT) gram/dL 6.4-8.2 ALBUMIN (test code = ALB) g/dL 3.4-5.0 GLOBULIN (test code = GLOB) gram/dL 2.7-4.2 ALBUMIN/GLOBULIN RATIO (test code = A/G) 0.75-1. 50 CALCIUM (test code = CA) 8.2 mg/dL 8.5-10.1 BILIRUBIN TOTAL (test code = BILT) mg/dL 0.0-1.0 SGOT/AST (test code = AST) IUnit/L 15-37 SGPT/ALT (test code = ALT) IUnit/L 12-78 ALKALINE PHOSPHATASE TOTAL (test code = ALKP) IUnit/L 45 -117 CBC W/AUTO [id number] 23:34:00* Test Item Value Reference Range Comments WHITE BLOOD CELL (test code = WBC) 6.4 K/mm3 4.5-12.5 RED BLOOD CELL (test code = RBC) 3.16 mill/mm3 3.7-5.2 HEMOGLOBIN (test code = HGB) 8.6 gram/dL 11.5-15.5 HEMATOCRIT (test code = HCT) 28.1 % 36.0-46.0 MEAN CELL VOLUME (test code = MCV) 88.9 fL 80-98 MEAN CELL HGB (test code = MCH) 27.2 picogram 27.0-33.0 MEAN CELL HGB CONCETRATION (test code = MCHC) 30.6 gram/dL 33 .0-36.0 RED CELL DISTRIBUTION WIDTH (test code = RDW) 15.7 % 11 .6-16.2 RED CELL DISTRIBUTION WIDTH SD (test code = RDW-SD) 51.0 fL 37.0-51.0 PLATELET COUNT (test code = PLT) 154 K/mm3 150-450 MEAN PLATELET VOLUME (test code = MPV) 10.8 fL 6.7-11.0 NEUTROPHIL % (test code = NT%) 76.1 % 39.0-69.0 IMMATURE GRANULOCYTE % (test code = IG%) 0.2 % 0.0-5.0 LYMPHOCYTE % (test code = LY%) 13.2 % 25.0-55.0 MONOCYTE % (test code = MO%) 9.1 % 0.0-10.0 EOSINOPHIL % (test code = EO%) 0.8 % 0.0-5.0 BASOPHIL % (test code = BA%) 0.6 % 0.0-1.0 NUCLEATED RBC % (test code = NRBC%) 0.0 % 0-0 NEUTROPHIL # (test code = NT#) 4.85 K/mm3 1.8-7.7 IMMATURE GRANULOCYTE # (test code = IG#) 0.01 x10 3/uL 0-0.03 LYMPHOCYTE # (test code = LY#) 0.84 K/mm3 1.0-5.0 MONOCYTE # (test code = MO#) 0.58 K/mm3 0-0.8 EOSINOPHIL # (test code = EO#) 0.05 K/mm3 0.0-0.5 BASOPHIL # (test code = BA#) 0.04 K/mm3 0.0-0.2 NUCLEATED RBC # (test code = NRBC#) 0.00 K/mm3 0.0-0.1 [id number] 21:02:00* Test Item Value Reference Range Comments GLUBED (test code = GLUBED) 144 mg/dL 74-106 Perf ormed by certified refinery operator reforming unit at [facility] T3 [id number] 06:09:00* Test Item Value Reference Range Comments T3 FREE (test code = T3F) 4.2 pg/mL 2.0-4.4 Perfor med At: [facility] [id number] [place], [place] [id number] Sheldon Abraham MD Ph:[phone] T4 [id number] 14:59:00* Test Item Value Reference Range Comments T4 FREE (test code = T4F) 4.48 ng/dL 0.76-1.46 [id number] 09:52:00* Test Item Value Reference Range Comments GLUBED (test code = GLUBED) 134 mg/dL 74-106 Perf ormed by certified refinery operator reforming unit at [facility] AG HEPAT B [id number] 08:43:00* Test Item Value Reference Range Comments AG HEPAT B SURF (test code = HBSAG) Nonreactive Index Nonreactiv e [id number] 07:13:00* Test Item Value Reference Range Comments GLYCOSYLATED HEMOGLOBIN (HA1C) (test code = GLYHGB) 6.4 % HbA1 SUGGESTED DIAGNOSIS: HbA1C (%) Diabetic >6.4Prediabetes 5.7 - 6.4Normal <5.7 ESTIMATED AVERAGE GLUCOSE (test code = EAG) 137 MG/DL CBC W/AUTO [id number] 06:22:00* Test Item Value Reference Range Comments WHITE BLOOD CELL (test code = WBC) 5.3 K/mm3 4.5-12.5 RED BLOOD CELL (test code = RBC) 2.43 mill/mm3 3.7-5.2 HEMOGLOBIN (test code = HGB) 6.8 gram/dL 11.5-15.5 HEMATOCRIT (test code = HCT) 23.3 % 36.0-46.0 MEAN CELL VOLUME (test code = MCV) 95.9 fL 80-98 MEAN CELL HGB (test code = MCH) 28.0 picogram 27.0-33.0 MEAN CELL HGB CONCETRATION (test code = MCHC) 29.2 gram/dL 33 .0-36.0 RED CELL DISTRIBUTION WIDTH (test code = RDW) 19.1 % 11 .6-16.2 RED CELL DISTRIBUTION WIDTH SD (test code = RDW-SD) 66.3 fL 37.0-51.0 PLATELET COUNT (test code = PLT) 184 K/mm3 150-450 MEAN PLATELET VOLUME (test code = MPV) 11.5 fL 6.7-11.0 NEUTROPHIL % (test code = NT%) 72.1 % 39.0-69.0 IMMATURE GRANULOCYTE % (test code = IG%) 0.6 % 0.0-5.0 LYMPHOCYTE % (test code = LY%) 18.4 % 25.0-55.0 MONOCYTE % (test code = MO%) 6.7 % 0.0-10.0 EOSINOPHIL % (test code = EO%) 1.1 % 0.0-5.0 BASOPHIL % (test code = BA%) 1.1 % 0.0-1.0 NUCLEATED RBC % (test code = NRBC%) 0.0 % 0-0 NEUTROPHIL # (test code = NT#) 3.85 K/mm3 1.8-7.7 IMMATURE GRANULOCYTE # (test code = IG#) 0.03 x10 3/uL 0-0.03 LYMPHOCYTE # (test code = LY#) 0.98 K/mm3 1.0-5.0 MONOCYTE # (test code = MO#) 0.36 K/mm3 0-0.8 EOSINOPHIL # (test code = EO#) 0.06 K/mm3 0.0-0.5 BASOPHIL # (test code = BA#) 0.06 K/mm3 0.0-0.2 NUCLEATED RBC # (test code = NRBC#) 0.00 K/mm3 0.0-0.1 MANUAL DIFF REQUIRED (test code = MDIFF) NO, ONLY SCAN NEEDED DIFFERENTIAL [id number] 06:22:00* Test Item Value Reference Range Comments STAIN ACCEPTABILITY (test code = STN ACCEPTABLE) STAIN ACCEPTABL E POLYCHROMASIA (test code = POLC) 2+ ANISOCYTOSIS (test code = ANISO) 1+ MICROCYTOSIS (test code = MICR) 1+ MORPHOLOGY COMMENT (test code = MOC) NORMAL PLATELET ESTIMATE (test code = PLTEST) ADEQUATE PLATELET MORPHOLOGY (test code = PLTMORPH) NORMAL BASIC METABOLIC [id number] 05:54:00* Test Item Value Reference Range Comments SODIUM (test code = NA) 145 mmol/L 136-145 POTASSIUM (test code = K) 3.7 mmol/L 3.5-5.1 CHLORIDE (test code = CL) 106.0 mmol/L 98-107 CARBON DIOXIDE (test code = CO2) 32.0 mmol/L 21-32 ANION GAP (test code = GAP) 10.7 10-20 GLUCOSE (test code = GLU) 115 mg/dL 74-106 BLOOD UREA NITROGEN (test code = BUN) 41 mg/dL 7-18 GLOMERULAR FILTRATION RATE (test code = GFR) 5 mL/min >=6 0 Estimated GFR by using Modified MDRD formula.Chronic kidney disease is defined as either kidney damageor GFR <60 mL/min/1.73 m2 for >3 months. CREATININE (test code = CREAT) 8.20 mg/dL 0.55-1.02 * *Note change in reference range due to change in reagent. BUN/CREATININE RATIO (test code = BUN/CREA) 5.0 10-2 0 CALCIUM (test code = CA) 8.7 mg/dL 8.5-10.1 LIPID PROFILE (CORONARY RISK)2019-04-03 05:54:00* Test Item Value Reference Range Comments TRIGLYCERIDES (test code = TRIG) 105 mg/dL 20-150 CHOLESTEROL (test code = CHOL) 87 mg/dL 0-200 CHOLESTEROL/HDL RATIO (test code = CHOLHDL) 2.0 RATIO 0-4. 9 RISK ASSOCIATED WITH CHOL/HDL RATIOS: Risk Male Female1/2 AVERAGE 3.43 3.27AVERAGE 4.97 4.442X AVERAGE 9.55 7.053X AVERAGE 23.39 11.04 REFERENCE VALUE IS RELATED TO RISK LEVELS ASRECOMMENDED BY THE SUMA. HEART, LUNG, AND BLOOD INST. HDL CHOLESTEROL (test code = HDL) 42 mg/dL 40-60 LIPOPROTEIN LDL (test code = LDL) 38 mg/dL 100-129 Reference Interval: mg/dL mmol/L Optimal <100 <2.6Near/above optimal 100-129 2.6- 3.3Borderline High 130-159 3.4-4.1High 160-189 4.1-4.9Very High >=190 >=4.9========= This LDL result is a direct measurement.========= THYROID PROFILE [id number] 05:54:00* Test Item Value Reference Range Comments T3 UPTAKE (test code = T3UP) 34.0 % 30.0-40.0 T4 (THYROXINE) (test code = T4) 7.1 ug/dL 4.5-13.9 T7 (FREE THYROXINE INDEX) (test code = T7) 2.41 FTI 1.3-5 .1 THYROID STIMULATING HORMONE (test code = TSH) 0.026 uIU/mL 0. 36-3.74 TSH REFERENCE RANGES: EUTHYROID: 0.35 - 4.3 mIU/mL HYPO : > 5.5 mIU/mL HYPER : < 0.35 mIU/mL [id number] 05:50:00* Test Item Value Reference Range Comments TROPONIN-I (test code = TROPI) <0.015 ng/mL 0-0.045 COMMENTS TO ELECTRICIAN: COLLECT 3 HOURS AFTER PREVIOUS SAMPLEBASIC METABOLIC [id number] 05:38:00* Test Item Value Reference Range Comments SODIUM (test code = NA) 145 mmol/L 136-145 POTASSIUM (test code = K) 3.7 mmol/L 3.5-5.1 CHLORIDE (test code = CL) 106.0 mmol/L 98-107 CARBON DIOXIDE (test code = CO2) mmol/L 21-32 ANION GAP (test code = GAP) 10-20 GLUCOSE (test code = GLU) mg/dL 74-106 BLOOD UREA NITROGEN (test code = BUN) mg/dL 7-18 GLOMERULAR FILTRATION RATE (test code = GFR) mL/min >=6 0 CREATININE (test code = CREAT) mg/dL 0.55-1.02 BUN/CREATININE RATIO (test code = BUN/CREA) 10-2 0 CALCIUM (test code = CA) mg/dL 8.5-10.1 LIPID PROFILE (CORONARY RISK)2019-04-03 05:38:00* Test Item Value Reference Range Comments TRIGLYCERIDES (test code = TRIG) mg/dL 20-150 CHOLESTEROL (test code = CHOL) mg/dL 0-200 CHOLESTEROL/HDL RATIO (test code = CHOLHDL) RATIO 0-4. 9 HDL CHOLESTEROL (test code = HDL) mg/dL 40-60 LIPOPROTEIN LDL (test code = LDL) mg/dL 100-129 THYROID PROFILE [id number] 05:38:00* Test Item Value Reference Range Comments T3 UPTAKE (test code = T3UP) % 30.0-40.0 T4 (THYROXINE) (test code = T4) ug/dL 4.5-13.9 T7 (FREE THYROXINE INDEX) (test code = T7) FTI 1.3-5 .1 THYROID STIMULATING HORMONE (test code = TSH) uIU/mL 0. 36-3.74 CBC W/AUTO [id number] 05:25:00* Test Item Value Reference Range Comments WHITE BLOOD CELL (test code = WBC) 5.3 K/mm3 4.5-12.5 RED BLOOD CELL (test code = RBC) 2.43 mill/mm3 3.7-5.2 HEMOGLOBIN (test code = HGB) 6.8 gram/dL 11.5-15.5 HEMATOCRIT (test code = HCT) 23.3 % 36.0-46.0 MEAN CELL VOLUME (test code = MCV) 95.9 fL 80-98 MEAN CELL HGB (test code = MCH) 28.0 picogram 27.0-33.0 MEAN CELL HGB CONCETRATION (test code = MCHC) 29.2 gram/dL 33 .0-36.0 RED CELL DISTRIBUTION WIDTH (test code = RDW) 19.1 % 11 .6-16.2 RED CELL DISTRIBUTION WIDTH SD (test code = RDW-SD) 66.3 fL 37.0-51.0 PLATELET COUNT (test code = PLT) 184 K/mm3 150-450 MEAN PLATELET VOLUME (test code = MPV) 11.5 fL 6.7-11.0 NEUTROPHIL % (test code = NT%) 72.1 % 39.0-69.0 IMMATURE GRANULOCYTE % (test code = IG%) 0.6 % 0.0-5.0 LYMPHOCYTE % (test code = LY%) 18.4 % 25.0-55.0 MONOCYTE % (test code = MO%) 6.7 % 0.0-10.0 EOSINOPHIL % (test code = EO%) 1.1 % 0.0-5.0 BASOPHIL % (test code = BA%) 1.1 % 0.0-1.0 NUCLEATED RBC % (test code = NRBC%) 0.0 % 0-0 NEUTROPHIL # (test code = NT#) 3.85 K/mm3 1.8-7.7 IMMATURE GRANULOCYTE # (test code = IG#) 0.03 x10 3/uL 0-0.03 LYMPHOCYTE # (test code = LY#) 0.98 K/mm3 1.0-5.0 MONOCYTE # (test code = MO#) 0.36 K/mm3 0-0.8 EOSINOPHIL # (test code = EO#) 0.06 K/mm3 0.0-0.5 BASOPHIL # (test code = BA#) 0.06 K/mm3 0.0-0.2 NUCLEATED RBC # (test code = NRBC#) 0.00 K/mm3 0.0-0.1 MANUAL DIFF REQUIRED (test code = MDIFF) NO, ONLY SCAN NEEDED DIFFERENTIAL [id number] 05:25:00* Test Item Value Reference Range Comments STAIN ACCEPTABILITY (test code = STN ACCEPTABLE) CABOT RINGS (test code = CAB) MORPHOLOGY COMMENT (test code = MOC) PLATELET ESTIMATE (test code = PLTEST) PLATELET MORPHOLOGY (test code = PLTMORPH) CBC W/AUTO [id number] 05:25:00* Test Item Value Reference Range Comments WHITE BLOOD CELL (test code = WBC) 5.3 K/mm3 4.5-12.5 RED BLOOD CELL (test code = RBC) 2.43 mill/mm3 3.7-5.2 HEMOGLOBIN (test code = HGB) 6.8 gram/dL 11.5-15.5 HEMATOCRIT (test code = HCT) 23.3 % 36.0-46.0 MEAN CELL VOLUME (test code = MCV) 95.9 fL 80-98 MEAN CELL HGB (test code = MCH) 28.0 picogram 27.0-33.0 MEAN CELL HGB CONCETRATION (test code = MCHC) 29.2 gram/dL 33 .0-36.0 RED CELL DISTRIBUTION WIDTH (test code = RDW) 19.1 % 11 .6-16.2 RED CELL DISTRIBUTION WIDTH SD (test code = RDW-SD) 66.3 fL 37.0-51.0 PLATELET COUNT (test code = PLT) 184 K/mm3 150-450 MEAN PLATELET VOLUME (test code = MPV) 11.5 fL 6.7-11.0 NEUTROPHIL % (test code = NT%) 72.1 % 39.0-69.0 IMMATURE GRANULOCYTE % (test code = IG%) 0.6 % 0.0-5.0 LYMPHOCYTE % (test code = LY%) 18.4 % 25.0-55.0 MONOCYTE % (test code = MO%) 6.7 % 0.0-10.0 EOSINOPHIL % (test code = EO%) 1.1 % 0.0-5.0 BASOPHIL % (test code = BA%) 1.1 % 0.0-1.0 NUCLEATED RBC % (test code = NRBC%) 0.0 % 0-0 NEUTROPHIL # (test code = NT#) 3.85 K/mm3 1.8-7.7 IMMATURE GRANULOCYTE # (test code = IG#) 0.03 x10 3/uL 0-0.03 LYMPHOCYTE # (test code = LY#) 0.98 K/mm3 1.0-5.0 MONOCYTE # (test code = MO#) 0.36 K/mm3 0-0.8 EOSINOPHIL # (test code = EO#) 0.06 K/mm3 0.0-0.5 BASOPHIL # (test code = BA#) 0.06 K/mm3 0.0-0.2 NUCLEATED RBC # (test code = NRBC#) 0.00 K/mm3 0.0-0.1 MANUAL DIFF REQUIRED (test code = MDIFF) NO, ONLY SCAN NEEDED DIFFERENTIAL [id number] 05:25:00* Test Item Value Reference Range Comments STAIN ACCEPTABILITY (test code = STN ACCEPTABLE) CABOT RINGS (test code = CAB) MORPHOLOGY COMMENT (test code = MOC) PLATELET ESTIMATE (test code = PLTEST) PLATELET MORPHOLOGY (test code = PLTMORPH) CBC W/AUTO [id number] 05:25:00* Test Item Value Reference Range Comments WHITE BLOOD CELL (test code = WBC) 5.3 K/mm3 4.5-12.5 RED BLOOD CELL (test code = RBC) 2.43 mill/mm3 3.7-5.2 HEMOGLOBIN (test code = HGB) 6.8 gram/dL 11.5-15.5 HEMATOCRIT (test code = HCT) 23.3 % 36.0-46.0 MEAN CELL VOLUME (test code = MCV) 95.9 fL 80-98 MEAN CELL HGB (test code = MCH) 28.0 picogram 27.0-33.0 MEAN CELL HGB CONCETRATION (test code = MCHC) 29.2 gram/dL 33 .0-36.0 RED CELL DISTRIBUTION WIDTH (test code = RDW) 19.1 % 11 .6-16.2 RED CELL DISTRIBUTION WIDTH SD (test code = RDW-SD) 66.3 fL 37.0-51.0 PLATELET COUNT (test code = PLT) 184 K/mm3 150-450 MEAN PLATELET VOLUME (test code = MPV) 11.5 fL 6.7-11.0 NEUTROPHIL % (test code = NT%) 72.1 % 39.0-69.0 IMMATURE GRANULOCYTE % (test code = IG%) 0.6 % 0.0-5.0 LYMPHOCYTE % (test code = LY%) 18.4 % 25.0-55.0 MONOCYTE % (test code = MO%) 6.7 % 0.0-10.0 EOSINOPHIL % (test code = EO%) 1.1 % 0.0-5.0 BASOPHIL % (test code = BA%) 1.1 % 0.0-1.0 NUCLEATED RBC % (test code = NRBC%) 0.0 % 0-0 NEUTROPHIL # (test code = NT#) 3.85 K/mm3 1.8-7.7 IMMATURE GRANULOCYTE # (test code = IG#) 0.03 x10 3/uL 0-0.03 LYMPHOCYTE # (test code = LY#) 0.98 K/mm3 1.0-5.0 MONOCYTE # (test code = MO#) 0.36 K/mm3 0-0.8 EOSINOPHIL # (test code = EO#) 0.06 K/mm3 0.0-0.5 BASOPHIL # (test code = BA#) 0.06 K/mm3 0.0-0.2 NUCLEATED RBC # (test code = NRBC#) 0.00 K/mm3 0.0-0.1 MANUAL DIFF REQUIRED (test code = MDIFF) NO, ONLY SCAN NEEDED DIFFERENTIAL [id number] 05:25:00* Test Item Value Reference Range Comments STAIN ACCEPTABILITY (test code = STN ACCEPTABLE) MORPHOLOGY COMMENT (test code = MOC) PLATELET ESTIMATE (test code = PLTEST) PLATELET MORPHOLOGY (test code = PLTMORPH) CBC W/AUTO [id number] 05:25:00* Test Item Value Reference Range Comments WHITE BLOOD CELL (test code = WBC) 5.3 K/mm3 4.5-12.5 RED BLOOD CELL (test code = RBC) 2.43 mill/mm3 3.7-5.2 HEMOGLOBIN (test code = HGB) 6.8 gram/dL 11.5-15.5 HEMATOCRIT (test code = HCT) 23.3 % 36.0-46.0 MEAN CELL VOLUME (test code = MCV) 95.9 fL 80-98 MEAN CELL HGB (test code = MCH) 28.0 picogram 27.0-33.0 MEAN CELL HGB CONCETRATION (test code = MCHC) 29.2 gram/dL 33 .0-36.0 RED CELL DISTRIBUTION WIDTH (test code = RDW) 19.1 % 11 .6-16.2 RED CELL DISTRIBUTION WIDTH SD (test code = RDW-SD) 66.3 fL 37.0-51.0 PLATELET COUNT (test code = PLT) 184 K/mm3 150-450 MEAN PLATELET VOLUME (test code = MPV) 11.5 fL 6.7-11.0 NEUTROPHIL % (test code = NT%) 72.1 % 39.0-69.0 IMMATURE GRANULOCYTE % (test code = IG%) 0.6 % 0.0-5.0 LYMPHOCYTE % (test code = LY%) 18.4 % 25.0-55.0 MONOCYTE % (test code = MO%) 6.7 % 0.0-10.0 EOSINOPHIL % (test code = EO%) 1.1 % 0.0-5.0 BASOPHIL % (test code = BA%) 1.1 % 0.0-1.0 NUCLEATED RBC % (test code = NRBC%) 0.0 % 0-0 NEUTROPHIL # (test code = NT#) 3.85 K/mm3 1.8-7.7 IMMATURE GRANULOCYTE # (test code = IG#) 0.03 x10 3/uL 0-0.03 LYMPHOCYTE # (test code = LY#) 0.98 K/mm3 1.0-5.0 MONOCYTE # (test code = MO#) 0.36 K/mm3 0-0.8 EOSINOPHIL # (test code = EO#) 0.06 K/mm3 0.0-0.5 BASOPHIL # (test code = BA#) 0.06 K/mm3 0.0-0.2 NUCLEATED RBC # (test code = NRBC#) 0.00 K/mm3 0.0-0.1 MANUAL DIFF REQUIRED (test code = MDIFF) NO, ONLY SCAN NEEDED DIFFERENTIAL [id number] 05:25:00* Test Item Value Reference Range Comments STAIN ACCEPTABILITY (test code = STN ACCEPTABLE) CABOT RINGS (test code = CAB) MORPHOLOGY COMMENT (test code = MOC) PLATELET ESTIMATE (test code = PLTEST) PLATELET MORPHOLOGY (test code = PLTMORPH) [id number] 02:25:00* Test Item Value Reference Range Comments TROPONIN-I (test code = TROPI) <0.015 ng/mL 0-0.045 COMMENTS TO ELECTRICIAN: COLLECT 3 HOURS AFTER PREVIOUS [id number] 20:35:00* Test Item Value Reference Range Comments MAGNESIUM (test code = MAG) 2.4 mg/dL 1.8-2.4 URINALYSIS [id number] 19:49:00* Test Item Value Reference Range Comments UA COLOR (test code = COLU) YELLOW YELLOW UA APPEARANCE (test code = APPU) TURBID CLEAR UA GLUCOSE DIPSTICK (test code = DGLUU) NEGATIVE mg/dL NEGATIVE UA BILIRUBIN DIPSTICK (test code = BILU) NEGATIVE mg/dL NEGATIV E UA KETONE DIPSTICK (test code = KETU) NEGATIVE mg/dL NEGATIVE UA SPECIFIC GRAVITY (test code = SGU) 1.015 1.001-1.03 5 UA BLOOD DIPSTICK (test code = EASTON) 0.1 mg/dL (1+) mg/dL NEGATIV E UA PH DIPSTICK (test code = ALLAN) 6.0 5.0-8.0 UA PROTEIN DIPSTICK (test code = PROU) 200 (2+) mg/dL NEGATIVE UA UROBILINIOGEN DIPSTICK (test code = URO) Normal mg/dL NEGA TIVE UA NITRITE DIPSTICK (test code = TAE) NEGATIVE NEGATIVE UA LEUKOCYTE ESTERASE W REFLEX (test code = LEUUR) 500 Sandra/u L (3+) Sandra/uL NEGATIVE UA WBC (test code = WBCU) >200 per HPF 0-5 UA RBC (test code = RBCU) 11-20 #/HPF 0-5 UA WBC CLUMPS (test code = WBCUCL) >10 /HPF NONE UA EPITHELIAL CELLS (test code = EPIU) MANY per HPF FEW UA BACTERIA (test code = BACU) MANY #/HPF NONE Urine Source? Clean CatchORDER NEEDS TO BE CANCELLEDBASIC METABOLIC PANEL 2019-04-02 19:36:00* Test Item Value Reference Range Comments SODIUM (test code = NA) 143 mmol/L 136-145 POTASSIUM (test code = K) 4.5 mmol/L 3.5-5.1 CHLORIDE (test code = CL) 104.0 mmol/L 98-107 CARBON DIOXIDE (test code = CO2) 28.0 mmol/L 21-32 ANION GAP (test code = GAP) 15.5 10-20 GLUCOSE (test code = GLU) 150 mg/dL 74-106 BLOOD UREA NITROGEN (test code = BUN) 42 mg/dL 7-18 GLOMERULAR FILTRATION RATE (test code = GFR) 5 mL/min >=6 0 Estimated GFR by using Modified MDRD formula.Chronic kidney disease is defined as either kidney damageor GFR <60 mL/min/1.73 m2 for >3 months. CREATININE (test code = CREAT) 8.00 mg/dL 0.55-1.02 * *Note change in reference range due to change in reagent. BUN/CREATININE RATIO (test code = BUN/CREA) 5.3 10-2 0 CALCIUM (test code = CA) 8.6 mg/dL 8.5-10.1 [id number] 19:36:00* Test Item Value Reference Range Comments TROPONIN-I (test code = TROPI) <0.015 ng/mL 0-0.045 BASIC METABOLIC [id number] 19:20:00* Test Item Value Reference Range Comments SODIUM (test code = NA) 143 mmol/L 136-145 POTASSIUM (test code = K) 4.5 mmol/L 3.5-5.1 CHLORIDE (test code = CL) 104.0 mmol/L 98-107 CARBON DIOXIDE (test code = CO2) mmol/L 21-32 ANION GAP (test code = GAP) 10-20 GLUCOSE (test code = GLU) mg/dL 74-106 BLOOD UREA NITROGEN (test code = BUN) mg/dL 7-18 GLOMERULAR FILTRATION RATE (test code = GFR) mL/min >=6 0 CREATININE (test code = CREAT) mg/dL 0.55-1.02 BUN/CREATININE RATIO (test code = BUN/CREA) 10-2 0 CALCIUM (test code = CA) mg/dL 8.5-10.1 [id number] 19:20:00* Test Item Value Reference Range Comments TROPONIN-I (test code = TROPI) ng/mL 0-0.045 [id number] 19:15:00* Test Item Value Reference Range Comments D-DIMER (test code = DDIMER) 458.00 ng/mLFEU 0-500 Cli nical Cut-off value for D- Dimer is 500 ng/mL FEU. Comment: The [employer] D-Dimer assay is intended for use asan aid in the diagnosis of venous thromboembolism (VTE)[deep vein thrombosis (DVT) or pulmonary embolism (PE)].The measurement of D-Dimer should not be used as an aid inthe diagnosis of VTE, in patient with: -Therapeutic dose anticoagulant therapy for >24 hours -Fibrinolytic therapy within previous 7 days -Trauma or surgery within previous 4 weeks -Disseminated malignancies - Aortic aneurysm -Sepsis, severe infections, pneumonia, severe skin infections -Liver cirrhosis - CBC W/O [id number] 19:12:00* Test Item Value Reference Range Comments WHITE BLOOD CELL (test code = WBC) 7.3 K/mm3 4.5-12.5 RED BLOOD CELL (test code = RBC) 2.67 mill/mm3 3.7-5.2 HEMOGLOBIN (test code = HGB) 7.5 gram/dL 11.5-15.5 HEMATOCRIT (test code = HCT) 25.2 % 36.0-46.0 MEAN CELL VOLUME (test code = MCV) 94.4 fL 80-98 MEAN CELL HGB (test code = MCH) 28.1 picogram 27.0-33.0 MEAN CELL HGB CONCETRATION (test code = MCHC) 29.8 gram/dL 33 .0-36.0 RED CELL DISTRIBUTION WIDTH (test code = RDW) 19.1 % 11 .6-16.2 PLATELET COUNT (test code = PLT) 205 K/mm3 150-450 MEAN PLATELET VOLUME (test code = MPV) 11.5 fL 6.7-11.0 - XR CHEST 1 [id number] 18:35:00 FAX: Edwin Chang MD [phone] [place]: St: REG Name: JOSHUA DORMAN [facility] : [birth year] Age/S: 73/F [address] [facility] Unit #: [id number] Loc: [place] [address] Phys: Edwin Chang MD Acct: [id number] Dis Date: Status: REG ER PHONE #: [phone] Exam Date: 04/02/2019 1804 FAX #: [phone] Reason: sob EXAMS: CPT CODE: [id number] XR CHEST 1 V 62978 EXAM: Chest x-ray, one view; INFORMATION: Shortness of breath; IMPRESSION: 1. No evidence of active cardiopulmonary disease. 2. No significant change compared with a study from July 31, 2018; the heart is borderline in size; aortic calcification; status post median sternotomy; Location code: [facility] at 1835 Reported and signed by: Roberto Chin M.D. CC: Edwin Chang MD Technologist: Telma Thakkar RT(R); ERVIN CORDOBA RT(R) Trnscrd Date/Time/By: 04/02/2019 (183) : By: Fabricio Orig Print D/T: S: 04/02/2019 (1837) PAGE 1 Signed Report BLOOD [id number] 16:31:00* Test Item Value Reference Range Comments CULTURE (BEAKER) (test code = 1095) No growth in 5 days WOUND CULTURE + GRAM [id number] 09:50:00* Test Item Value Reference Range Comments CULTURE (BEAKER) (test code = 1095) No growth GRAM STAIN RESULT (BEAKER) (test code = 1123) <1+ White blood ce lls seen GRAM STAIN RESULT (BEAKER) (test code = 31779) 1+ gram negative rods POCT-GLUCOSE [id number] 13:22:00* Test Item Value Reference Range Comments POC-GLUCOSE METER (BEAKER) (test code = 1538) 114 mg/dL 70 -110 : TESTED AT [facility] [address], [address]: Academic Registrar/Porcelain Enamel Installer ID = [id number] for DANITA BELLA BASIC METABOLIC [id number] 12:00:00* Test Item Value Reference Range Comments SODIUM (BEAKER) (test code = 381) 139 meq/L 136-145 POTASSIUM (BEAKER) (test code = 379) 3.3 meq/L 3.5-5.1 CHLORIDE (BEAKER) (test code = 382) 100 meq/L 98-107 CO2 (BEAKER) (test code = 355) 29 meq/L 22-29 BLOOD UREA NITROGEN (BEAKER) (test code = 354) 4 mg/dL 7 -21 CREATININE (BEAKER) (test code = 358) 1.96 mg/dL 0.57-1.25 GLUCOSE RANDOM (BEAKER) (test code = 652) 110 mg/dL 70-105 CALCIUM (BEAKER) (test code = 697) 9.5 mg/dL 8.4-10.2 EGFR (BEAKER) (test code = 1092) 25 mL/min/1.73 sq m ESTIMATED GFR IS NOT ACCURATE CREATININE CLEARANCE IN PREDICTING GLOMERULAR FILTRATION RATE. ESTIMATED GFR IS NOT APPLICABLE FOR DIALYSIS PATIENTS. [id number] 11:59:00* Test Item Value Reference Range Comments PHOSPHORUS (BEAKER) (test code = 604) 1.4 mg/dL 2.3-4.7 CBC W/PLT COUNT & AUTO [id number] 11:31:00* Test Item Value Reference Range Comments WHITE BLOOD CELL COUNT (BEAKER) (test code = 775) 6.3 K/ L 3.5-10.5 RED BLOOD CELL COUNT (BEAKER) (test code = 761) 3.27 M/ L 3.93-5.22 HEMOGLOBIN (BEAKER) (test code = 410) 9.2 GM/DL 11.2-15.7 HEMATOCRIT (BEAKER) (test code = 411) 29.3 % 34.1-44.9 MEAN CORPUSCULAR VOLUME (BEAKER) (test code = 753) 89.6 fL 79.4-94.8 Discordant result compares with previous; clinical correlation requires. MEAN CORPUSCULAR HEMOGLOBIN (BEAKER) (test code = 751) 28.1 pg 25.6-32.2 MEAN CORPUSCULAR HEMOGLOBIN CONC (BEAKER) (test code = 752) 31.4 GM/DL 32.2-35.5 RED CELL DISTRIBUTION WIDTH (BEAKER) (test code = 412) 17.9 % 11.7-14.4 PLATELET COUNT (BEAKER) (test code = 756) 120 K/CU MM 150-45 0 MEAN PLATELET VOLUME (BEAKER) (test code = 754) 11.1 fL 9.4-12.3 NUCLEATED RED BLOOD CELLS (BEAKER) (test code = 413) 0 /100 WBC 0-0 NEUTROPHILS RELATIVE PERCENT (BEAKER) (test code = 429) 78 % LYMPHOCYTES RELATIVE PERCENT (BEAKER) (test code = 430) 15 % MONOCYTES RELATIVE PERCENT (BEAKER) (test code = 431) 5 % EOSINOPHILS RELATIVE PERCENT (BEAKER) (test code = 432) 1 % BASOPHILS RELATIVE PERCENT (BEAKER) (test code = 437) 1 % NEUTROPHILS ABSOLUTE COUNT (BEAKER) (test code = 670) 4.92 K/ L 1.56-6.13 LYMPHOCYTES ABSOLUTE COUNT (BEAKER) (test code = 414) 0.94 K/ L 1.18-3.74 MONOCYTES ABSOLUTE COUNT (BEAKER) (test code = 415) 0.34 K/ L 0.24-0.36 EOSINOPHILS ABSOLUTE COUNT (BEAKER) (test code = 416) 0.06 K/ L 0.04-0.36 BASOPHILS ABSOLUTE COUNT (BEAKER) (test code = 417) 0.05 K/ L 0.01-0.08 IMMATURE GRANULOCYTES-RELATIVE PERCENT (BEAKER) (test code = 280 1) 0 % 0-1 RAD, FOOT, MIN 3 VIEWS, [id number] 04:56:00Reason for exam:->gangrene toe FINAL REPORT RAD, FOOT, MIN 3 VIEWS, RIGHT CLINICAL I NDICATION: gangrene toe COMPARISON: Right foot radiograph 03/15/2019 FINDINGS: Frontal, lateral and oblique views of the right foot were obtained. There is di ffuse soft tissue swelling of the great toe with an overlying dressing. There is no soft tissue gas or radiographic evidence of osteomyelitis. There is no acute fracture or dislocation. The joint spaces are maintained. There are vascular ca lcifications. IMPRESSION:Diffuse soft tissue swelling about the great toe.No sof t tissue gas or radiographic evidence of osteomyelitis. MRI a bone scan may be p erformed if clinical suspicion for osteomyelitis persists. Signed: [place] Cardonaeport Verified Date/Time: 03/25/2019 04:56:44 -GLUCOSE [id number] 21:32:00* Test Item Value Reference Range Comments POC-GLUCOSE METER (BEAKER) (test code = 1538) 201 mg/dL 70 -110 : TESTED AT [address], [address]: Academic Registrar/Porcelain Enamel Installer ID = [id number] for JAN CHUNG POCT-GLUCOSE [id number] 21:32:00* Test Item Value Reference Range Comments POC-GLUCOSE METER (BEAKER) (test code = 1538) 157 mg/dL 70 -110 : TESTED AT [place] [id number] [facility], [address]: Academic Registrar/Porcelain Enamel Installer ID = [id number] for CHAN QUEVEDO CBC W/PLT COUNT & AUTO [id number] 17:51:00* Test Item Value Reference Range Comments WHITE BLOOD CELL COUNT (BEAKER) (test code = 775) 6.1 K/ L 3.5-10.5 RED BLOOD CELL COUNT (BEAKER) (test code = 761) 3.47 M/ L 3.93-5.22 HEMOGLOBIN (BEAKER) (test code = 410) 9.7 GM/DL 11.2-15.7 HEMATOCRIT (BEAKER) (test code = 411) 32.6 % 34.1-44.9 MEAN CORPUSCULAR VOLUME (BEAKER) (test code = 753) 93.9 fL 79.4-94.8 MEAN CORPUSCULAR HEMOGLOBIN (BEAKER) (test code = 751) 28.0 pg 25.6-32.2 MEAN CORPUSCULAR HEMOGLOBIN CONC (BEAKER) (test code = 752) 29.8 GM/DL 32.2-35.5 RED CELL DISTRIBUTION WIDTH (BEAKER) (test code = 412) 18.3 % 11.7-14.4 PLATELET COUNT (BEAKER) (test code = 756) 160 K/CU MM 150-45 0 MEAN PLATELET VOLUME (BEAKER) (test code = 754) 10.6 fL 9.4-12.3 NUCLEATED RED BLOOD CELLS (BEAKER) (test code = 413) 0 /100 WBC 0-0 NEUTROPHILS RELATIVE PERCENT (BEAKER) (test code = 429) 75 % LYMPHOCYTES RELATIVE PERCENT (BEAKER) (test code = 430) 17 % MONOCYTES RELATIVE PERCENT (BEAKER) (test code = 431) 6 % EOSINOPHILS RELATIVE PERCENT (BEAKER) (test code = 432) 2 % BASOPHILS RELATIVE PERCENT (BEAKER) (test code = 437) 1 % NEUTROPHILS ABSOLUTE COUNT (BEAKER) (test code = 670) 4.61 K/ L 1.56-6.13 LYMPHOCYTES ABSOLUTE COUNT (BEAKER) (test code = 414) 1.01 K/ L 1.18-3.74 MONOCYTES ABSOLUTE COUNT (BEAKER) (test code = 415) 0.37 K/ L 0.24-0.36 EOSINOPHILS ABSOLUTE COUNT (BEAKER) (test code = 416) 0.10 K/ L 0.04-0.36 BASOPHILS ABSOLUTE COUNT (BEAKER) (test code = 417) 0.03 K/ L 0.01-0.08 IMMATURE GRANULOCYTES-RELATIVE PERCENT (BEAKER) (test code = 280 1) 0 % 0-1 HEMOGLOBIN [id number] 17:45:00* Test Item Value Reference Range Comments HEMOGLOBIN A1C (BEAKER) (test code = 368) 6.7 % 4.3-6. 1 BASIC METABOLIC [id number] 17:06:00* Test Item Value Reference Range Comments SODIUM (BEAKER) (test code = 381) 140 meq/L 136-145 POTASSIUM (BEAKER) (test code = 379) 4.2 meq/L 3.5-5.1 Specimen slightly hemolyzed CHLORIDE (BEAKER) (test code = 382) 103 meq/L 98-107 CO2 (BEAKER) (test code = 355) 23 meq/L 22-29 BLOOD UREA NITROGEN (BEAKER) (test code = 354) 14 mg/dL 7 -21 CREATININE (BEAKER) (test code = 358) 5.66 mg/dL 0.57-1.25 Specimen slightly hemolyzed GLUCOSE RANDOM (BEAKER) (test code = 652) 169 mg/dL 70-105 CALCIUM (BEAKER) (test code = 697) 9.1 mg/dL 8.4-10.2 EGFR (BEAKER) (test code = 1092) 7 mL/min/1.73 sq m ESTIMATED GFR IS NOT ACCURATE CREATININE CLEARANCE IN PREDICTING GLOMERULAR FILTRATION RATE. ESTIMATED GFR IS NOT APPLICABLE FOR DIALYSIS PATIENTS. BLOOD [id number] 18:00:00* Test Item Value Reference Range Comments CULTURE (BEAKER) (test code = 1095) No growth in 5 days BLOOD [id number] 18:00:00* Test Item Value Reference Range Comments CULTURE (BEAKER) (test code = 1095) No growth in 5 days POCT-GLUCOSE [id number] 12:46:00* Test Item Value Reference Range Comments POC-GLUCOSE METER (BEAKER) (test code = 1538) 100 mg/dL 70 -110 : Notified RN/MD: TESTED AT [facility] [address] [facility], [address]: Academic Registrar/Porcelain Enamel Installer ID = [id number] for JUNI JOHNSON BASIC METABOLIC [id number] 09:37:00* Test Item Value Reference Range Comments SODIUM (BEAKER) (test code = 381) 138 meq/L 136-145 POTASSIUM (BEAKER) (test code = 379) 3.7 meq/L 3.5-5.1 CHLORIDE (BEAKER) (test code = 382) 101 meq/L 98-107 CO2 (BEAKER) (test code = 355) 28 meq/L 22-29 BLOOD UREA NITROGEN (BEAKER) (test code = 354) 16 mg/dL 7 -21 CREATININE (BEAKER) (test code = 358) 3.62 mg/dL 0.57-1.25 GLUCOSE RANDOM (BEAKER) (test code = 652) 109 mg/dL 70-105 CALCIUM (BEAKER) (test code = 697) 8.8 mg/dL 8.4-10.2 EGFR (BEAKER) (test code = 1092) 12 mL/min/1.73 sq m ESTIMATED GFR IS NOT ACCURATE CREATININE CLEARANCE IN PREDICTING GLOMERULAR FILTRATION RATE. ESTIMATED GFR IS NOT APPLICABLE FOR DIALYSIS PATIENTS. CBC W/PLT COUNT & AUTO [id number] 08:51:00* Test Item Value Reference Range Comments WHITE BLOOD CELL COUNT (BEAKER) (test code = 775) 6.7 K/ L 3.5-10.5 RED BLOOD CELL COUNT (BEAKER) (test code = 761) 3.04 M/ L 3.93-5.22 HEMOGLOBIN (BEAKER) (test code = 410) 8.4 GM/DL 11.2-15.7 HEMATOCRIT (BEAKER) (test code = 411) 27.2 % 34.1-44.9 MEAN CORPUSCULAR VOLUME (BEAKER) (test code = 753) 89.5 fL 79.4-94.8 MEAN CORPUSCULAR HEMOGLOBIN (BEAKER) (test code = 751) 27.6 pg 25.6-32.2 MEAN CORPUSCULAR HEMOGLOBIN CONC (BEAKER) (test code = 752) 30.9 GM/DL 32.2-35.5 RED CELL DISTRIBUTION WIDTH (BEAKER) (test code = 412) 15.9 % 11.7-14.4 PLATELET COUNT (BEAKER) (test code = 756) 108 K/CU MM 150-45 0 MEAN PLATELET VOLUME (BEAKER) (test code = 754) 11.4 fL 9.4-12.3 NUCLEATED RED BLOOD CELLS (BEAKER) (test code = 413) 0 /100 WBC 0-0 NEUTROPHILS RELATIVE PERCENT (BEAKER) (test code = 429) 83 % LYMPHOCYTES RELATIVE PERCENT (BEAKER) (test code = 430) 10 % MONOCYTES RELATIVE PERCENT (BEAKER) (test code = 431) 6 % EOSINOPHILS RELATIVE PERCENT (BEAKER) (test code = 432) 0 % BASOPHILS RELATIVE PERCENT (BEAKER) (test code = 437) 0 % NEUTROPHILS ABSOLUTE COUNT (BEAKER) (test code = 670) 5.54 K/ L 1.56-6.13 LYMPHOCYTES ABSOLUTE COUNT (BEAKER) (test code = 414) 0.64 K/ L 1.18-3.74 MONOCYTES ABSOLUTE COUNT (BEAKER) (test code = 415) 0.42 K/ L 0.24-0.36 EOSINOPHILS ABSOLUTE COUNT (BEAKER) (test code = 416) 0.03 K/ L 0.04-0.36 BASOPHILS ABSOLUTE COUNT (BEAKER) (test code = 417) 0.03 K/ L 0.01-0.08 IMMATURE GRANULOCYTES-RELATIVE PERCENT (BEAKER) (test code = 280 1) 0 % 0-1 POCT-GLUCOSE [id number] 06:15:00* Test Item Value Reference Range Comments POC-GLUCOSE METER (BEAKER) (test code = 1538) 142 mg/dL 70 -110 : TESTED AT [address], [address]: Academic Registrar/Porcelain Enamel Installer ID = [id number] for GARRETT WALLS [id number] 23:42:00* Test Item Value Reference Range Comments ACTIVATED CLOTTING TIME (BEAKER) (test code = 441) 153 sec Reference Range: 74-137 seconds, Baseline/TESTED AT [address] [address] POCT-GLUCOSE [id number] 22:48:00* Test Item Value Reference Range Comments POC-GLUCOSE METER (BEAKER) (test code = 1538) 159 mg/dL 70 -110 : TESTED AT [address], [address]: Academic Registrar/Porcelain Enamel Installer ID = [id number] for GARRETT WALLS [id number] 21:59:00* Test Item Value Reference Range Comments ACTIVATED CLOTTING TIME (BEAKER) (test code = 441) 169 sec Reference Range: 74-137 seconds, Baseline/TESTED AT [address] [address] POCT-GLUCOSE [id number] 20:23:00* Test Item Value Reference Range Comments POC-GLUCOSE METER (BEAKER) (test code = 1538) 125 mg/dL 70 -110 : TESTED AT [address], [address]: Academic Registrar/Porcelain Enamel Installer ID = [id number] for KUSUM RUBIO HEPATITIS B SURFACE [id number] 20:07:00* Test Item Value Reference Range Comments HEPATITIS B SURFACE ANTIGEN (2) (BEAKER) (test code = 2585) Nonreactive Nonreactive [id number] 19:20:00* Test Item Value Reference Range Comments ACTIVATED CLOTTING TIME (BEAKER) (test code = 441) 230 sec Reference Range: 74-137 seconds, Baseline/TESTED AT [address] [address] [id number] 19:01:00* Test Item Value Reference Range Comments ACTIVATED CLOTTING TIME (BEAKER) (test code = 441) 252 sec Reference Range: 74-137 seconds, Baseline/TESTED AT [address] [address] [id number] 18:10:00* Test Item Value Reference Range Comments ACTIVATED CLOTTING TIME (BEAKER) (test code = 441) 285 sec Reference Range: 74-137 seconds, Baseline/TESTED AT [address] [address] [id number] 15:36:00* Test Item Value Reference Range Comments PARTIAL THROMBOPLASTIN TIME (BEAKER) (test code = 760) 72.0 seco nds 22.5-36.0 [id number] 09:37:00* Test Item Value Reference Range Comments PARTIAL THROMBOPLASTIN TIME (BEAKER) (test code = 760) 75.1 seco nds 22.5-36.0 POCT-GLUCOSE [id number] 08:56:00* Test Item Value Reference Range Comments POC-GLUCOSE METER (BEAKER) (test code = 1538) 159 mg/dL 70 -110 : TESTED AT [address], [address]: Academic Registrar/Porcelain Enamel Installer ID = [id number] for SARMAD DACOSTA BASIC METABOLIC [id number] 07:46:00* Test Item Value Reference Range Comments SODIUM (BEAKER) (test code = 381) 138 meq/L 136-145 POTASSIUM (BEAKER) (test code = 379) 3.9 meq/L 3.5-5.1 CHLORIDE (BEAKER) (test code = 382) 98 meq/L 98-107 CO2 (BEAKER) (test code = 355) 30 meq/L 22-29 BLOOD UREA NITROGEN (BEAKER) (test code = 354) 30 mg/dL 7 -21 CREATININE (BEAKER) (test code = 358) 7.31 mg/dL 0.57-1.25 GLUCOSE RANDOM (BEAKER) (test code = 652) 221 mg/dL 70-105 CALCIUM (BEAKER) (test code = 697) 8.8 mg/dL 8.4-10.2 EGFR (BEAKER) (test code = 1092) 6 mL/min/1.73 sq m ESTIMATED GFR IS NOT ACCURATE CREATININE CLEARANCE IN PREDICTING GLOMERULAR FILTRATION RATE. ESTIMATED GFR IS NOT APPLICABLE FOR DIALYSIS PATIENTS. CBC W/PLT COUNT & AUTO [id number] 06:43:00* Test Item Value Reference Range Comments WHITE BLOOD CELL COUNT (BEAKER) (test code = 775) 4.6 K/ L 3.5-10.5 RED BLOOD CELL COUNT (BEAKER) (test code = 761) 2.90 M/ L 3.93-5.22 HEMOGLOBIN (BEAKER) (test code = 410) 8.1 GM/DL 11.2-15.7 HEMATOCRIT (BEAKER) (test code = 411) 26.3 % 34.1-44.9 MEAN CORPUSCULAR VOLUME (BEAKER) (test code = 753) 90.7 fL 79.4-94.8 MEAN CORPUSCULAR HEMOGLOBIN (BEAKER) (test code = 751) 27.9 pg 25.6-32.2 MEAN CORPUSCULAR HEMOGLOBIN CONC (BEAKER) (test code = 752) 30.8 GM/DL 32.2-35.5 RED CELL DISTRIBUTION WIDTH (BEAKER) (test code = 412) 16.1 % 11.7-14.4 PLATELET COUNT (BEAKER) (test code = 756) 97 K/CU MM 150-45 0 MEAN PLATELET VOLUME (BEAKER) (test code = 754) 11.5 fL 9.4-12.3 NUCLEATED RED BLOOD CELLS (BEAKER) (test code = 413) 0 /100 WBC 0-0 NEUTROPHILS RELATIVE PERCENT (BEAKER) (test code = 429) 64 % LYMPHOCYTES RELATIVE PERCENT (BEAKER) (test code = 430) 25 % MONOCYTES RELATIVE PERCENT (BEAKER) (test code = 431) 8 % EOSINOPHILS RELATIVE PERCENT (BEAKER) (test code = 432) 2 % BASOPHILS RELATIVE PERCENT (BEAKER) (test code = 437) 1 % NEUTROPHILS ABSOLUTE COUNT (BEAKER) (test code = 670) 2.92 K/ L 1.56-6.13 LYMPHOCYTES ABSOLUTE COUNT (BEAKER) (test code = 414) 1.16 K/ L 1.18-3.74 MONOCYTES ABSOLUTE COUNT (BEAKER) (test code = 415) 0.37 K/ L 0.24-0.36 EOSINOPHILS ABSOLUTE COUNT (BEAKER) (test code = 416) 0.07 K/ L 0.04-0.36 BASOPHILS ABSOLUTE COUNT (BEAKER) (test code = 417) 0.05 K/ L 0.01-0.08 IMMATURE GRANULOCYTES-RELATIVE PERCENT (BEAKER) (test code = 280 1) 0 % 0-1 POCT-GLUCOSE [id number] 00:42:00* Test Item Value Reference Range Comments POC-GLUCOSE METER (BEAKER) (test code = 1538) 226 mg/dL 70 -110 : TESTED AT [address], [address]: Academic Registrar/Porcelain Enamel Installer ID = [id number] for FRED ROBBINS [id number] 23:00:00* Test Item Value Reference Range Comments PARTIAL THROMBOPLASTIN TIME (BEAKER) (test code = 760) 37.7 seco nds 22.5-36.0 6 hours after starting heparin infusion and as indicated per sliding scalePOCT- GLUCOSE [id number] 20:54:00* Test Item Value Reference Range Comments POC-GLUCOSE METER (BEAKER) (test code = 1538) 100 mg/dL 70 -110 : TESTED AT [address], [address]: Academic Registrar/Porcelain Enamel Installer ID = [id number] for MI PRICE CREATINE KINASE (CK)2019-03-15 17:25:00* Test Item Value Reference Range Comments CREATINE KINASE TOTAL (BEAKER) (test code = 380) 64 U/L 29-200 BASIC METABOLIC [id number] 15:55:00* Test Item Value Reference Range Comments SODIUM (BEAKER) (test code = 381) 139 meq/L 136-145 POTASSIUM (BEAKER) (test code = 379) 4.5 meq/L 3.5-5.1 CHLORIDE (BEAKER) (test code = 382) 99 meq/L 98-107 CO2 (BEAKER) (test code = 355) 29 meq/L 22-29 BLOOD UREA NITROGEN (BEAKER) (test code = 354) 25 mg/dL 7 -21 CREATININE (BEAKER) (test code = 358) 6.03 mg/dL 0.57-1.25 GLUCOSE RANDOM (BEAKER) (test code = 652) 144 mg/dL 70-105 CALCIUM (BEAKER) (test code = 697) 9.6 mg/dL 8.4-10.2 EGFR (BEAKER) (test code = 1092) 7 mL/min/1.73 sq m ESTIMATED GFR IS NOT ACCURATE CREATININE CLEARANCE IN PREDICTING GLOMERULAR FILTRATION RATE. ESTIMATED GFR IS NOT APPLICABLE FOR DIALYSIS PATIENTS. [id number] 15:46:00* Test Item Value Reference Range Comments PROTIME (BEAKER) (test code = 759) 13.2 seconds 11.9-14.2 INR (BEAKER) (test code = 370) 1.1 <=5.9 PARTIAL THROMBOPLASTIN TIME (BEAKER) (test code = 760) 28.6 seco nds 22.5-36.0 Effective 08/31/2018: PT Reference Range ChangeNew: 11.9-14.2 Previous: 11.7-14. 7RECOMMENDED COUMADIN/WARFARIN INR THERAPY RANGESSTANDARD DOSE: 2.0-3.0 Include s: PROPHYLAXIS for venous thrombosis, systemic embolization; TREATMENT for venou s thrombosis and/or pulmonary embolus.HIGH RISK: Target INR is 2.5-3.5 for patie nts wiht mechanical heart valves.RAD, FOOT, MIN 3 VIEWS, [id number] 15:41:00Include toesReason for exam:->eval for signs of osteoFINAL REPORT RAD, FOOT, MIN 3 VIEWS, RIGHT INDICATION: eval for signs of osteo COMPARISON: None TECHNIQUE: AP, lateral and oblique radiographs of the foot FINDINGS:No definite radiographic evidence of osteomyelitis. Signed: Mamie Hurtado Verified Date/Time: 03/15/2019 15:41:38 Reading Location: [facility] Radiology Reading Room W/PLT COUNT & AUTO [id number] 15:34:00* Test Item Value Reference Range Comments WHITE BLOOD CELL COUNT (BEAKER) (test code = 775) 7.8 K/ L 3.5-10.5 RED BLOOD CELL COUNT (BEAKER) (test code = 761) 3.16 M/ L 3.93-5.22 HEMOGLOBIN (BEAKER) (test code = 410) 9.0 GM/DL 11.2-15.7 HEMATOCRIT (BEAKER) (test code = 411) 28.6 % 34.1-44.9 MEAN CORPUSCULAR VOLUME (BEAKER) (test code = 753) 90.5 fL 79.4-94.8 MEAN CORPUSCULAR HEMOGLOBIN (BEAKER) (test code = 751) 28.5 pg 25.6-32.2 MEAN CORPUSCULAR HEMOGLOBIN CONC (BEAKER) (test code = 752) 31.5 GM/DL 32.2-35.5 RED CELL DISTRIBUTION WIDTH (BEAKER) (test code = 412) 16.0 % 11.7-14.4 PLATELET COUNT (BEAKER) (test code = 756) 98 K/CU MM 150-45 0 MEAN PLATELET VOLUME (BEAKER) (test code = 754) 11.7 fL 9.4-12.3 NUCLEATED RED BLOOD CELLS (BEAKER) (test code = 413) 0 /100 WBC 0-0 NEUTROPHILS RELATIVE PERCENT (BEAKER) (test code = 429) 80 % LYMPHOCYTES RELATIVE PERCENT (BEAKER) (test code = 430) 12 % MONOCYTES RELATIVE PERCENT (BEAKER) (test code = 431) 7 % EOSINOPHILS RELATIVE PERCENT (BEAKER) (test code = 432) 0 % BASOPHILS RELATIVE PERCENT (BEAKER) (test code = 437) 1 % NEUTROPHILS ABSOLUTE COUNT (BEAKER) (test code = 670) 6.26 K/ L 1.56-6.13 LYMPHOCYTES ABSOLUTE COUNT (BEAKER) (test code = 414) 0.91 K/ L 1.18-3.74 MONOCYTES ABSOLUTE COUNT (BEAKER) (test code = 415) 0.53 K/ L 0.24-0.36 EOSINOPHILS ABSOLUTE COUNT (BEAKER) (test code = 416) 0.03 K/ L 0.04-0.36 BASOPHILS ABSOLUTE COUNT (BEAKER) (test code = 417) 0.05 K/ L 0.01-0.08 IMMATURE GRANULOCYTES-RELATIVE PERCENT (BEAKER) (test code = 280 1) 0 % 0-1 BASIC METABOLIC [id number] 07:03:00* Test Item Value Reference Range Comments SODIUM (BEAKER) (test code = 381) 141 meq/L 136-145 POTASSIUM (BEAKER) (test code = 379) 4.7 meq/L 3.5-5.1 Specimen moderately hemolyzed CHLORIDE (BEAKER) (test code = 382) 106 meq/L 98-107 CO2 (BEAKER) (test code = 355) 26 meq/L 22-29 BLOOD UREA NITROGEN (BEAKER) (test code = 354) 48 mg/dL 7 -21 CREATININE (BEAKER) (test code = 358) 7.33 mg/dL 0.57-1.25 Specimen moderately hemolyzed GLUCOSE RANDOM (BEAKER) (test code = 652) 121 mg/dL 70-105 CALCIUM (BEAKER) (test code = 697) 8.4 mg/dL 8.4-10.2 EGFR (BEAKER) (test code = 1092) 5 mL/min/1.73 sq m ESTIMATED GFR IS NOT ACCURATE CREATININE CLEARANCE IN PREDICTING GLOMERULAR FILTRATION RATE. ESTIMATED GFR IS NOT APPLICABLE FOR DIALYSIS PATIENTS. CBC W/PLT COUNT & AUTO [id number] 07:00:00* Test Item Value Reference Range Comments WHITE BLOOD CELL COUNT (BEAKER) (test code = 775) 5.1 K/ L 3.5-10.5 RED BLOOD CELL COUNT (BEAKER) (test code = 761) 3.94 M/ L 3.93-5.22 HEMOGLOBIN (BEAKER) (test code = 410) 11.0 GM/DL 11.2-15.7 HEMATOCRIT (BEAKER) (test code = 411) 35.6 % 34.1-44.9 MEAN CORPUSCULAR VOLUME (BEAKER) (test code = 753) 90.4 fL 79.4-94.8 MEAN CORPUSCULAR HEMOGLOBIN (BEAKER) (test code = 751) 27.9 pg 25.6-32.2 MEAN CORPUSCULAR HEMOGLOBIN CONC (BEAKER) (test code = 752) 30.9 GM/DL 32.2-35.5 RED CELL DISTRIBUTION WIDTH (BEAKER) (test code = 412) 15.3 % 11.7-14.4 PLATELET COUNT (BEAKER) (test code = 756) 140 K/CU MM 150-45 0 MEAN PLATELET VOLUME (BEAKER) (test code = 754) 12.4 fL 9.4-12.3 NUCLEATED RED BLOOD CELLS (BEAKER) (test code = 413) 0 /100 WBC 0-0 NEUTROPHILS RELATIVE PERCENT (BEAKER) (test code = 429) 79 % LYMPHOCYTES RELATIVE PERCENT (BEAKER) (test code = 430) 13 % MONOCYTES RELATIVE PERCENT (BEAKER) (test code = 431) 6 % EOSINOPHILS RELATIVE PERCENT (BEAKER) (test code = 432) 1 % BASOPHILS RELATIVE PERCENT (BEAKER) (test code = 437) 1 % NEUTROPHILS ABSOLUTE COUNT (BEAKER) (test code = 670) 3.98 K/ L 1.56-6.13 LYMPHOCYTES ABSOLUTE COUNT (BEAKER) (test code = 414) 0.65 K/ L 1.18-3.74 MONOCYTES ABSOLUTE COUNT (BEAKER) (test code = 415) 0.32 K/ L 0.24-0.36 EOSINOPHILS ABSOLUTE COUNT (BEAKER) (test code = 416) 0.06 K/ L 0.04-0.36 BASOPHILS ABSOLUTE COUNT (BEAKER) (test code = 417) 0.04 K/ L 0.01-0.08 IMMATURE GRANULOCYTES-RELATIVE PERCENT (BEAKER) (test code = 280 1) 0 % 0-1 POCT-GLUCOSE [id number] 00:40:00* Test Item Value Reference Range Comments POC-GLUCOSE METER (BEAKER) (test code = 1538) 119 mg/dL 70 -110 : TESTED AT [address], [address]: Academic Registrar/[employer] Installer ID = [id number] for SWATI OCHOA [id number] 20:50:00* Test Item Value Reference Range Comments ACTIVATED CLOTTING TIME (BEAKER) (test code = 441) 131 sec Reference Range: 74-137 seconds, Baseline/TESTED AT [address] [address] [id number] 18:58:00* Test Item Value Reference Range Comments ACTIVATED CLOTTING TIME (BEAKER) (test code = 441) 164 sec Reference Range: 74-137 seconds, Baseline/TESTED AT [address] [address] [id number] 17:48:00* Test Item Value Reference Range Comments ACTIVATED CLOTTING TIME (BEAKER) (test code = 441) 186 sec Reference Range: 74-137 seconds, Baseline/TESTED AT [place] [id number] [facility] [address] POCT-GLUCOSE [id number] 16:30:00* Test Item Value Reference Range Comments POC-GLUCOSE METER (BEAKER) (test code = 1538) 84 mg/dL 70 -110 : TESTED AT [address], [address]: Academic Registrar/[employer] Installer ID = [id number] for EMILIANO CASTRO [id number] 14:19:00* Test Item Value Reference Range Comments ACTIVATED CLOTTING TIME (BEAKER) (test code = 441) 312 sec Reference Range: 74-137 seconds, Baseline/TESTED AT [address] [address] [id number] 13:21:00* Test Item Value Reference Range Comments ACTIVATED CLOTTING TIME (BEAKER) (test code = 441) 301 sec Reference Range: 74-137 seconds, Baseline/TESTED AT [address] [address] CBC W/PLT COUNT & AUTO [id number] 09:30:00* Test Item Value Reference Range Comments WHITE BLOOD CELL COUNT (BEAKER) (test code = 775) 5.9 K/ L 3.5-10.5 RED BLOOD CELL COUNT (BEAKER) (test code = 761) 4.05 M/ L 3.93-5.22 HEMOGLOBIN (BEAKER) (test code = 410) 11.2 GM/DL 11.2-15.7 HEMATOCRIT (BEAKER) (test code = 411) 35.8 % 34.1-44.9 MEAN CORPUSCULAR VOLUME (BEAKER) (test code = 753) 88.4 fL 79.4-94.8 MEAN CORPUSCULAR HEMOGLOBIN (BEAKER) (test code = 751) 27.7 pg 25.6-32.2 MEAN CORPUSCULAR HEMOGLOBIN CONC (BEAKER) (test code = 752) 31.3 GM/DL 32.2-35.5 RED CELL DISTRIBUTION WIDTH (BEAKER) (test code = 412) 15.2 % 11.7-14.4 PLATELET COUNT (BEAKER) (test code = 756) 122 K/CU MM 150-45 0 MEAN PLATELET VOLUME (BEAKER) (test code = 754) 11.6 fL 9.4-12.3 NUCLEATED RED BLOOD CELLS (BEAKER) (test code = 413) 0 /100 WBC 0-0 NEUTROPHILS RELATIVE PERCENT (BEAKER) (test code = 429) 74 % LYMPHOCYTES RELATIVE PERCENT (BEAKER) (test code = 430) 17 % MONOCYTES RELATIVE PERCENT (BEAKER) (test code = 431) 6 % EOSINOPHILS RELATIVE PERCENT (BEAKER) (test code = 432) 1 % BASOPHILS RELATIVE PERCENT (BEAKER) (test code = 437) 1 % NEUTROPHILS ABSOLUTE COUNT (BEAKER) (test code = 670) 4.33 K/ L 1.56-6.13 LYMPHOCYTES ABSOLUTE COUNT (BEAKER) (test code = 414) 1.00 K/ L 1.18-3.74 MONOCYTES ABSOLUTE COUNT (BEAKER) (test code = 415) 0.36 K/ L 0.24-0.36 EOSINOPHILS ABSOLUTE COUNT (BEAKER) (test code = 416) 0.08 K/ L 0.04-0.36 BASOPHILS ABSOLUTE COUNT (BEAKER) (test code = 417) 0.05 K/ L 0.01-0.08 IMMATURE GRANULOCYTES-RELATIVE PERCENT (BEAKER) (test code = 280 1) 1 % 0-1 BASIC METABOLIC [id number] 09:04:00* Test Item Value Reference Range Comments SODIUM (BEAKER) (test code = 381) 139 meq/L 136-145 POTASSIUM (BEAKER) (test code = 379) 3.9 meq/L 3.5-5.1 CHLORIDE (BEAKER) (test code = 382) 103 meq/L 98-107 CO2 (BEAKER) (test code = 355) 26 meq/L 22-29 BLOOD UREA NITROGEN (BEAKER) (test code = 354) 43 mg/dL 7 -21 CREATININE (BEAKER) (test code = 358) 6.31 mg/dL 0.57-1.25 GLUCOSE RANDOM (BEAKER) (test code = 652) 188 mg/dL 70-105 CALCIUM (BEAKER) (test code = 697) 8.9 mg/dL 8.4-10.2 EGFR (BEAKER) (test code = 1092) 7 mL/min/1.73 sq m ESTIMATED GFR IS NOT ACCURATE CREATININE CLEARANCE IN PREDICTING GLOMERULAR FILTRATION RATE. ESTIMATED GFR IS NOT APPLICABLE FOR DIALYSIS PATIENTS. [id number] 08:55:00* Test Item Value Reference Range Comments PARTIAL THROMBOPLASTIN TIME (BEAKER) (test code = 760) 34.7 seco nds 22.5-36.0 PROTHROMBIN TIME/[id number] 08:54:00* Test Item Value Reference Range Comments PROTIME (BEAKER) (test code = 759) 13.0 seconds 11.9-14.2 INR (BEAKER) (test code = 370) 1.0 <=5.9 Effective 08/31/2018: PT Reference Range ChangeNew: 11.9-14.2 Previous: 11.7-14. 7RECOMMENDED COUMADIN/WARFARIN INR THERAPY RANGESSTANDARD DOSE: 2.0-3.0 Include s: PROPHYLAXIS for venous thrombosis, systemic embolization; TREATMENT for venou s thrombosis and/or pulmonary embolus.HIGH RISK: Target INR is 2.5-3.5 for patie nts wiht mechanical heart valves.[id number] 16:55:00* Test Item Value Reference Range Comments GLUBED (test code = GLUBED) 128 mg/dL 74-106 Perf ormed by certified refinery operator reforming unit at [facility] [id number] 12:31:00* Test Item Value Reference Range Comments GLUBED (test code = GLUBED) 149 mg/dL 74-106 Perf ormed by certified refinery operator reforming unit at [facility] BASIC METABOLIC [id number] 08:26:00* Test Item Value Reference Range Comments SODIUM (test code = NA) 138 mmol/L 136-145 POTASSIUM (test code = K) 4.5 mmol/L 3.5-5.1 CHLORIDE (test code = CL) 101.0 mmol/L 98-107 CARBON DIOXIDE (test code = CO2) 30.0 mmol/L 21-32 ANION GAP (test code = GAP) 11.5 10-20 GLUCOSE (test code = GLU) 123 mg/dL 74-106 BLOOD UREA NITROGEN (test code = BUN) 33 mg/dL 7-18 GLOMERULAR FILTRATION RATE (test code = GFR) 7 mL/min >=6 0 Estimated GFR by using Modified MDRD formula.Chronic kidney disease is defined as either kidney damageor GFR <60 mL/min/1.73 m2 for >3 months. CREATININE (test code = CREAT) 6.30 mg/dL 0.55-1.02 * *Note change in reference range due to change in reagent. BUN/CREATININE RATIO (test code = BUN/CREA) 5.2 10-2 0 CALCIUM (test code = CA) 9.2 mg/dL 8.5-10.1 CBC W/O [id number] 08:10:00* Test Item Value Reference Range Comments WHITE BLOOD CELL (test code = WBC) 4.4 K/mm3 4.5-12.5 RED BLOOD CELL (test code = RBC) 3.74 mill/mm3 3.7-5.2 HEMOGLOBIN (test code = HGB) 10.7 gram/dL 11.5-15.5 HEMATOCRIT (test code = HCT) 36.1 % 36.0-46.0 MEAN CELL VOLUME (test code = MCV) 96.5 fL 80-98 MEAN CELL HGB (test code = MCH) 28.6 picogram 27.0-33.0 MEAN CELL HGB CONCETRATION (test code = MCHC) 29.6 gram/dL 33 .0-36.0 RED CELL DISTRIBUTION WIDTH (test code = RDW) 16.0 % 11 .6-16.2 PLATELET COUNT (test code = PLT) 135 K/mm3 150-450 MEAN PLATELET VOLUME (test code = MPV) 11.0 fL 6.7-11.0 [id number] 07:58:00* Test Item Value Reference Range Comments GLUBED (test code = GLUBED) 117 mg/dL 74-106 Perf ormed by certified refinery operator reforming unit at [facility] CBC W/O [id number] 07:51:00* Test Item Value Reference Range Comments WHITE BLOOD CELL (test code = WBC) K/mm3 4.5-12.5 RED BLOOD CELL (test code = RBC) mill/mm3 3.7-5.2 HEMOGLOBIN (test code = HGB) gram/dL 11.5-15.5 HEMATOCRIT (test code = HCT) 36.1 % 36.0-46.0 MEAN CELL VOLUME (test code = MCV) fL 80-98 MEAN CELL HGB (test code = MCH) picogram 27.0-33.0 MEAN CELL HGB CONCETRATION (test code = MCHC) gram/dL 33 .0-36.0 RED CELL DISTRIBUTION WIDTH (test code = RDW) % 11 .6-16.2 PLATELET COUNT (test code = PLT) K/mm3 150-450 MEAN PLATELET VOLUME (test code = MPV) fL 6.7-11.0 AB HEPATITIS B [id number] 04:09:00* Test Item Value Reference Range Comments AB HEPATITIS B SURFACE (test code = HBSAB) Reactive () Non Reactive: Inconsistent with immunity, less than 10 mIU/mL Reactive: Consistent with immunity, greater than 9.9 mIU/mLPerformed At: [facility] [address] [place], [place] [id number] Sheldon Abraham MD Ph:[phone] [id number] 20:29:00* Test Item Value Reference Range Comments GLUBED (test code = GLUBED) 199 mg/dL 74-106 Perf ormed by certified refinery operator reforming unit at [facility] [id number] 20:26:00* Test Item Value Reference Range Comments GLUBED (test code = GLUBED) 149 mg/dL 74-106 Perf ormed by certified refinery operator reforming unit at [facility] - CT CHEST W/O [id number] 17:50:00 Name: JOSHUA SANTIAGO [facility] : 1945 Age/S: 72 / F [address] [id number] Loc: [place] [address] Phys: Dianna Bean MD Acct: [id number] Dis Date: Status: ADM IN PHONE #: [phone] Exam Date: 08/01/2018 1727 FAX #: [phone] Reason: Hypoxia EXAMS: CPT CODE: [id number] CT CHEST W/O CONTRAST 90249 REASON FOR EXAM: Hypoxia EXAM ORDER DATE: 08/01/2018 4:34 PM Ordering M.D.: Dianna Bean MD PROCEDURE: - CT CHEST W/O CONTRAST FINDINGS: CT images of the chest were obtained without IV contrast. Reconstructed sagittal and coronal images of the chest were provided for interpretation. Dose modulation, iterative reconstruction, and/or weight based adjustment of the MA/KV was utilized to reduce the radiation dose to as low as reasonably achievable. The heart size is minimally enlarged. No evidence of pericardial effusion. The thoracic aorta is aorta is unremarkable. No evidence of mediastinal or hilar adenopathy. The lungs are clear. No evidence of pleural effusion. IMPRESSION: No active disease in the chest. at 1750 Reported and signed by: Bharathi White M.D. CC: Sushant Shelley MD; Dianna Bean MD Technologist:Salena Navas RT(R); RISSA Ernandez CTDI: DLP: Trnscb Date/Time: 08/01/2018 (1750) [email or web address] Orig Print D/T: S: 08/01/2018 (6440) CTDI: DLP: PAGE 1 Signed Report [id number] 15:56:00* Test Item Value Reference Range Comments GLUBED (test code = GLUBED) 150 mg/dL 74-106 Perf ormed by certified refinery operator reforming unit at [facility] [id number] 13:37:00* Test Item Value Reference Range Comments GLUBED (test code = GLUBED) 153 mg/dL 74-106 Perf ormed by certified refinery operator reforming unit at [facility] CBC W/AUTO [id number] 08:16:00* Test Item Value Reference Range Comments WHITE BLOOD CELL (test code = WBC) 4.9 K/mm3 4.5-12.5 RED BLOOD CELL (test code = RBC) 3.38 mill/mm3 3.7-5.2 HEMOGLOBIN (test code = HGB) 9.7 gram/dL 11.5-15.5 HEMATOCRIT (test code = HCT) 32.8 % 36.0-46.0 MEAN CELL VOLUME (test code = MCV) 97.0 fL 80-98 MEAN CELL HGB (test code = MCH) 28.7 picogram 27.0-33.0 MEAN CELL HGB CONCETRATION (test code = MCHC) 29.6 gram/dL 33 .0-36.0 RED CELL DISTRIBUTION WIDTH (test code = RDW) 16.2 % 11 .6-16.2 RED CELL DISTRIBUTION WIDTH SD (test code = RDW-SD) 57.9 fL 37.0-51.0 PLATELET COUNT (test code = PLT) 113 K/mm3 150-450 MEAN PLATELET VOLUME (test code = MPV) 12.2 fL 6.7-11.0 NEUTROPHIL % (test code = NT%) 62.2 % 39.0-69.0 IMMATURE GRANULOCYTE % (test code = IG%) 0.4 % 0.0-5.0 LYMPHOCYTE % (test code = LY%) 24.7 % 25.0-55.0 MONOCYTE % (test code = MO%) 10.9 % 0.0-10.0 EOSINOPHIL % (test code = EO%) 1.2 % 0.0-5.0 BASOPHIL % (test code = BA%) 0.6 % 0.0-1.0 NUCLEATED RBC % (test code = NRBC%) 0.0 % 0-0 NEUTROPHIL # (test code = NT#) 3.02 K/mm3 1.8-7.7 IMMATURE GRANULOCYTE # (test code = IG#) 0.02 x10 3/uL 0-0.03 LYMPHOCYTE # (test code = LY#) 1.20 K/mm3 1.0-5.0 MONOCYTE # (test code = MO#) 0.53 K/mm3 0-0.8 EOSINOPHIL # (test code = EO#) 0.06 K/mm3 0.0-0.5 BASOPHIL # (test code = BA#) 0.03 K/mm3 0.0-0.2 NUCLEATED RBC # (test code = NRBC#) 0.00 K/mm3 0.0-0.1 MANUAL DIFF REQUIRED (test code = MDIFF) NO BASIC METABOLIC [id number] 08:09:00* Test Item Value Reference Range Comments SODIUM (test code = NA) 139 mmol/L 136-145 RESULT V ERIFIED BY REPEAT ANALYSIS POTASSIUM (test code = K) 4.4 mmol/L 3.5-5.1 CHLORIDE (test code = CL) 102.0 mmol/L 98-107 CARBON DIOXIDE (test code = CO2) 27.0 mmol/L 21-32 ANION GAP (test code = GAP) 14.4 10-20 GLUCOSE (test code = GLU) 197 mg/dL 74-106 BLOOD UREA NITROGEN (test code = BUN) 60 mg/dL 7-18 RESULT VERIFIED BY REPEAT ANALYSIS GLOMERULAR FILTRATION RATE (test code = GFR) 4 mL/min >=6 0 Estimated GFR by using Modified MDRD formula.Chronic kidney disease is defined as either kidney damageor GFR <60 mL/min/1.73 m2 for >3 months. CREATININE (test code = CREAT) 9.20 mg/dL 0.55-1.02 * *Note change in reference range due to change in reagent. BUN/CREATININE RATIO (test code = BUN/CREA) 6.5 10-2 0 CALCIUM (test code = CA) 8.0 mg/dL 8.5-10.1 AG HEPAT B [id number] 07:21:00* Test Item Value Reference Range Comments AG HEPAT B SURF (test code = HBSAG) Nonreactive Index Nonreactiv e [id number] 06:11:00* Test Item Value Reference Range Comments TROPONIN-I (test code = TROPI) <0.015 ng/mL 0-0.045 COMMENTS TO ELECTRICIAN: COLLECT 3 HOURS AFTER PREVIOUS [id number] 02:07:00* Test Item Value Reference Range Comments D-DIMER (test code = DDIMER) 184.00 ng/mLFEU 0-500 Cli nical Cut-off value for D- Dimer is 500 ng/mL FEU. Comment: The [employer] D-Dimer assay is intended for use asan aid in the diagnosis of venous thromboembolism (VTE)[deep vein thrombosis (DVT) or pulmonary embolism (PE)].The measurement of D-Dimer should not be used as an aid inthe diagnosis of VTE, in patient with: -Therapeutic dose anticoagulant therapy for >24 hours -Fibrinolytic therapy within previous 7 days -Trauma or surgery within previous 4 weeks -Disseminated malignancies - Aortic aneurysm -Sepsis, severe infections, pneumonia, severe skin infections -Liver cirrhosis - [id number] 02:00:00* Test Item Value Reference Range Comments TROPONIN-I (test code = TROPI) <0.015 ng/mL 0-0.045 COMMENTS TO ELECTRICIAN: COLLECT 3 HOURS AFTER PREVIOUS [id number] 21:39:00* Test Item Value Reference Range Comments GLUBED (test code = GLUBED) 152 mg/dL 74-106 Perf ormed by certified refinery operator reforming unit at [facility] B-TYPE NATRIURETIC [id number] 18:11:00* Test Item Value Reference Range Comments B-TYPE NATRIURETIC PEPTIDE (test code = BNP) 140.17 pgram/mL 0-1 00 BASIC METABOLIC [id number] 17:59:00* Test Item Value Reference Range Comments SODIUM (test code = NA) 144 mmol/L 136-145 POTASSIUM (test code = K) 4.4 mmol/L 3.5-5.1 CHLORIDE (test code = CL) 102.0 mmol/L 98-107 CARBON DIOXIDE (test code = CO2) 30.0 mmol/L 21-32 ANION GAP (test code = GAP) 16.4 10-20 GLUCOSE (test code = GLU) 148 mg/dL 74-106 BLOOD UREA NITROGEN (test code = BUN) 49 mg/dL 7-18 GLOMERULAR FILTRATION RATE (test code = GFR) 5 mL/min >=6 0 Estimated GFR by using Modified MDRD formula.Chronic kidney disease is defined as either kidney damageor GFR <60 mL/min/1.73 m2 for >3 months. CREATININE (test code = CREAT) 8.30 mg/dL 0.55-1.02 * *Note change in reference range due to change in reagent. BUN/CREATININE RATIO (test code = BUN/CREA) 5.9 10-2 0 CALCIUM (test code = CA) 8.1 mg/dL 8.5-10.1 [id number] 17:59:00* Test Item Value Reference Range Comments TROPONIN-I (test code = TROPI) <0.015 ng/mL 0-0.045 BASIC METABOLIC [id number] 17:53:00* Test Item Value Reference Range Comments SODIUM (test code = NA) 144 mmol/L 136-145 POTASSIUM (test code = K) 4.4 mmol/L 3.5-5.1 CHLORIDE (test code = CL) 102.0 mmol/L 98-107 CARBON DIOXIDE (test code = CO2) mmol/L 21-32 ANION GAP (test code = GAP) 10-20 GLUCOSE (test code = GLU) mg/dL 74-106 BLOOD UREA NITROGEN (test code = BUN) mg/dL 7-18 GLOMERULAR FILTRATION RATE (test code = GFR) mL/min >=6 0 CREATININE (test code = CREAT) mg/dL 0.55-1.02 BUN/CREATININE RATIO (test code = BUN/CREA) 10-2 0 CALCIUM (test code = CA) mg/dL 8.5-10.1 [id number] 17:53:00* Test Item Value Reference Range Comments TROPONIN-I (test code = TROPI) ng/mL 0-0.045 - XR CHEST 1 [id number] 17:34:00 FAX: Tre Saunders MD [phone] [place]: St: REG Name: JOSHUA DORMAN [facility] : [birth year] Age/S: 72/F [address] [facility] Unit #: [id number] Loc: [place] [address] Phys: Tre Saunders MD Acct: [id number] Dis Date: Status: REG ER PHONE #: [phone] Exam Date: 07/31/2018 1715 FAX #: [phone] Reason: Shortness of Breath EXAMS: CPT CODE: [id number] XR CHEST 1 V 41098 REASON FOR EXAM: Shortness of Breath EXAM ORDER DATE: 07/31/2018 5:01 PM Ordering M.D.: Tre Saunders MD PROCEDURE: - XR CHEST 1 V COMPARISON: 04/10/2018 FINDINGS: Portable AP frontal view of the chest obtained at 5:17 PM shows clear lungs without evidence of consolida tion. There is no evidence of effusion. The heart size is within normal li mits. Pulmonary vasculatures are unremarkable. IMPRESSION : No active disease. Electronically Signed by Channing White on 2018 at 173 Reported and signed by: Bharathi White M.D. CC: Tre Saunders MD Yazan hnologist: ERVIN PANIAGUA) Trnscrd Date/T tong/By: 07/31/2018 (0412) : By: Nae Orig Print D/T: S: 9 (4042) PAGE 1 Signed Report CBC W/O [id number] 17:14:00* Test Item Value Reference Range Comments WHITE BLOOD CELL (test code = WBC) 4.5 K/mm3 4.5-12.5 RED BLOOD CELL (test code = RBC) 3.68 mill/mm3 3.7-5.2 HEMOGLOBIN (test code = HGB) 10.6 gram/dL 11.5-15.5 HEMATOCRIT (test code = HCT) 35.2 % 36.0-46.0 MEAN CELL VOLUME (test code = MCV) 95.7 fL 80-98 MEAN CELL HGB (test code = MCH) 28.8 picogram 27.0-33.0 MEAN CELL HGB CONCETRATION (test code = MCHC) 30.1 gram/dL 33 .0-36.0 RED CELL DISTRIBUTION WIDTH (test code = RDW) 16.3 % 11 .6-16.2 PLATELET COUNT (test code = PLT) 118 K/mm3 150-450 MEAN PLATELET VOLUME (test code = MPV) 11.5 fL 6.7-11.0 POTASSIUM-STAT [id number] 12:42:00* Test Item Value Reference Range Comments POTASSIUM (BEAKER) (test code = 379) 3.2 meq/L 3.6-5.5 GLUCOSE-STAT [id number] 12:42:00* Test Item Value Reference Range Comments GLUCOSE RANDOM (BEAKER) (test code = 652) 203 mg/dL 70-110 HGB/HCT (H&H) - STAT [id number] 12:41:00* Test Item Value Reference Range Comments HEMOGLOBIN (BEAKER) (test code = 410) 12.5 g/dL 12.0-15.0 HEMATOCRIT (BEAKER) (test code = 411) 37.0 % 36.0-45.0 GLUCOSE-STAT [id number] 06:24:00* Test Item Value Reference Range Comments GLUCOSE RANDOM (BEAKER) (test code = 652) 125 mg/dL 70-110 POTASSIUM-STAT [id number] 06:22:00* Test Item Value Reference Range Comments POTASSIUM (BEAKER) (test code = 379) 3.5 meq/L 3.6-5.5 HGB/HCT (H&H) - STAT [id number] 06:22:00* Test Item Value Reference Range Comments HEMOGLOBIN (BEAKER) (test code = 410) 13.7 g/dL 12.0-15.0 HEMATOCRIT (BEAKER) (test code = 411) 40.0 % 36.0-45.0 CT, CTA [id number] 17:12:00Reason for Exam:->pre transplant evaluation, assess iliac vesselsAddendum BeginsREPORT STATUS:A Addendum: I agree with the previously described non vascular findings. Signed: Oc Don MDReport Verified Date/Time: 06/03/2017 17:12:29 Reading Location: [place] [address] Angio Body Reading RoomAddendum EndsFINAL REPORT CT angiography of the abdominal aorta and pelvic arteries, 03 June 2017 INDICATION: This is a 71 year old female with end-stage renal disease status presents for pretransplant assessment. TThis study is performed in an attempt to avoid an invasive procedure. TECHNIQUE: Spiral acquisition before and during intravenous contrast administration using a [employer] Moderna multidetector CT scanner. Images were obtained before and during the dynamic passage of intravenous contrast material. Multi-planar 3-D volume-rendering reconstruction was performed using an independent workstation interactively by the interpreting physician as well as the 3-D specialist for optimal visualisation of the abdominal aorta, pelvic arteries, and its proximal branches. Please refer to the contrast sheet scanned in the RIS system for the amount and route of contrast given. This exam was performed according to our departmental dose-optimisation programme, which includes automated exposure control, adjustment of the mA and/or kV according to patient size and/or use of iterative reconstruction technique. Dose modulation, iterative reconstruction, and/or weight based adjustment of the mA/kV was utilized to reduce the radiation dose to as low as reasonably achievable. FINDINGS: VASCULAR: The abdominal aorta is normal in co urse and calibre. No ectasia or aneurysmal dilation is seen. Both calcific and n oncalcific atherosclerosis is identified, especially, at image 70, though there is no still no luminal obstruction identified. There is no evidence of acute aor tic pathology, specifically, there is no dissection, intramural haematoma, or co ntained rupture. Quantitative dimensions of the abdominal aorta are as follows: 1.8 cm at the mesenteric segment; 1.7 cm at the renal segment,; and 1.3 cm at the aortic bifurcation. The vascular stent is identified in the left common i liac artery with no in-stent stenosis identified. The left common iliac artery h as significant calcific atherosclerosis identified. The vascular stent extends f rom the left common iliac artery into the proximal left external iliac artery. T he left external iliac artery is patent with no obstructive lesion identified. T he left common femoral artery is unremarkable. However, the proximal left SFA ascencio s a 1 cm severe lesion identified. The right common iliac artery has both calcif ic and noncalcific atherosclerosis identified. Minimum diameter of the left comm on iliac artery is approximately 3.3 x 3.7 cm in diameter. The left external angel ac artery is widely patent. The left common femoral artery have nonobstructive c alcification identified. The left SFA has significant calcification seen proxima lly image 25 making accurate assessment limited. Climatology Teacher dimension of the left and the right external iliac artery is approximately 4 mm, bilaterally. Si milarly, the associated pelvic veins are patent with no venous thrombosis identi fied. Climatology Teacher dimensions of the left and the right external iliac veins are 8 and 8 - 9 mm, respectively. There are single left and right renal arteries identified. The coeliac axis, SMA, OG are widely patent. NON-VASCULAR: The lung bases are unremarkable. No pleural effusion is identified. In the abdomen, the liver and spleen appears unremarkable. The liver edge is smooth. Only patchy en hancement is identified image 47 of the liver, likely represent vascular shuntin g. There could be tiny gallstone is seen in the gallbladder with no wall thicken ing identified. The adrenal glands, and the pancreas appears unremarkable. Patie nt has end-stage renal disease status. Bowel is not well assessed by CT angiogra phy as enteric contrast is not given. No obvious bowel dilation is identified. S cattered colonic diverticulum is seen. The appendix appears unremarkable. No spencer e air free fluid seen in the abdomen and pelvis. The bladder appears unremarkabl e. The uterus is identified. Tiny calcification is seen that may represent small uterine fibroids. No obvious abnormal adnexal mass is seen and CT is not optimi sed in the assessment of pelvic gynaecological structures. No acute bony patholo gy is seen. CONCLUSIONS: 1. There is atherosclerosis seen in the abdominal aorta though no acute aortic pathology is identified. By multiplanar reformation, no luminal obstruction is appreciated. There is no evidence of acute aortic patholo gy, specifically, there is no dissection, intramural hematoma, or contained rupt ure. Quantitative dimension of the abdominal aorta are as noted. The pelvic vei ns are patent. Stent is seen in the left common iliac artery extending into the left external iliac artery with no in-stent stenosis identified. There is also s ubstantial calcific and noncalcific atherosclerosis seen in the right common angel ac artery with minimum diameter as described above. The external iliac arteries, bilaterally, are widely patent. As the left common iliac system is widely paten t, the left external iliac artery could be a better approach as there is also schmidt bstantial atherosclerosis seen in the right common iliac artery. 2. Patent mese nteric and renal arteries. 3. Other findings as described above. 4. An addendu m will be dictated regarding the non-vascular findings by the Waste Disposal Plant Operator Radiolo gist. Signed: Osito Valadez MDReport Verified Date/Time: 06/03/2017 11:02:45 Reading Location: [place] [address] Cardiology MRI , CHEST, 2 [id number] 11:26:00 Reason for Exam:->Pre kidney transplant evaluation.FINAL REPORT TECHNIQUE: Frontal and lateral views of the chest. INDICATION: 71-year-old woman for renal transplant evaluation. COMPARISON: Chest radiograph 02/22/2015. FINDINGS: LINES/TUBES: The tip of a left internal jugular dual lumen dialysis catheter takes a posterior course as it enters the region of the superior vena cava, and is likely located in the azygos vein. LUNGS: Linear scarring and/or subsegmental atelectasis in the left lower lung zone. Lungs are otherwise clear. PLEURA: No pleural effusion or pneumothorax. HEART AND MEDIASTINUM: The cardiomediastinal silhouette is borderline enlarged. Atheros clerotic calcifications in the tortuous thoracic aorta. SOFT TISSUES AND BONES: Degenerative changes of the visualized spine. Unchanged median sternotomy wires. IMPRESSION:Tip of the dialysis catheter appears to be in the azygos vein. Cons ider repositioning. Otherwise, no acute cardiopulmonary abnormalities. Signed: Rakesh Li MDReport Verified Date/Time: 06/03/2017 11:26:16 Reading Locatio n: [facility] Radiology Reading Room -[id number] 11:03:00* Test Item Value Reference Range Comments POC-CREATININE (BEAKER) (test code = 1859) 7.7 mg/dL 0.6-1 .3 TESTED AT [place] [id number] [facility] [address] POC-EGFR (BEAKER) (test code = 1860) 5 mL/min/1.73M2 GLUCOSE-STAT [id number] 13:23:00* Test Item Value Reference Range Comments GLUCOSE RANDOM (BEAKER) (test code = 652) 134 mg/dL 70-110 HGB/HCT (H&H) - STAT [id number] 13:23:00* Test Item Value Reference Range Comments HEMOGLOBIN (BEAKER) (test code = 410) 11.4 g/dL 12.0-15.0 HEMATOCRIT (BEAKER) (test code = 411) 34.0 % 36.0-45.0 POTASSIUM-STAT [id number] 13:22:00* Test Item Value Reference Range Comments POTASSIUM (BEAKER) (test code = 379) 3.7 meq/L 3.6-5.5 GLUCOSE-STAT [id number] 08:10:00* Test Item Value Reference Range Comments GLUCOSE RANDOM (BEAKER) (test code = 652) 142 mg/dL 70-110 POTASSIUM-STAT [id number] 08:09:00* Test Item Value Reference Range Comments POTASSIUM (BEAKER) (test code = 379) 3.7 meq/L 3.6-5.5 HGB/HCT (H&H) - STAT [id number] 08:09:00* Test Item Value Reference Range Comments HEMOGLOBIN (BEAKER) (test code = 410) 12.5 g/dL 12.0-15.0 HEMATOCRIT (BEAKER) (test code = 411) 37.0 % 36.0-45.0 POCT-GLUCOSE [id number] 19:51:00* Test Item Value Reference Range Comments POC-GLUCOSE METER (BEAKER) (test code = 1538) 114 mg/dL 70 -110 TESTED AT [facility] [address] [facility] [address] BASIC METABOLIC [id number] 11:42:00* Test Item Value Reference Range Comments SODIUM (BEAKER) (test code = 381) 138 meq/L 136-145 POTASSIUM (BEAKER) (test code = 379) 5.1 meq/L 3.5-5.1 CHLORIDE (BEAKER) (test code = 382) 105 meq/L 98-107 CO2 (BEAKER) (test code = 355) 23 meq/L 22-29 BLOOD UREA NITROGEN (BEAKER) (test code = 354) 63 mg/dL 7 -21 CREATININE (BEAKER) (test code = 358) 6.92 mg/dL 0.57-1.25 GLUCOSE RANDOM (BEAKER) (test code = 652) 135 mg/dL 70-105 CALCIUM (BEAKER) (test code = 697) 8.8 mg/dL 8.4-10.2 EGFR (BEAKER) (test code = 1092) 6 mL/min/1.73 sq m ESTIMATED GFR IS NOT ACCURATE CREATININE CLEARANCE IN PREDICTING GLOMERULAR FILTRATION RATE. ESTIMATED GFR IS NOT APPLICABLE FOR DIALYSIS PATIENTS. PT/[id number] 11:25:00* Test Item Value Reference Range Comments PROTIME (BEAKER) (test code = 759) 14.7 seconds 11.7-14.7 INR (BEAKER) (test code = 370) 1.2 <=5.9 PARTIAL THROMBOPLASTIN TIME (BEAKER) (test code = 760) 31.5 seco nds 22.5-36.0 RECOMMENDED COUMADIN/WARFARIN INR THERAPY RANGESSTANDARD DOSE: 2.0 - 3.0 Inclu kendell: PROPHYLAXIS for venous thrombosis, systemic embolization; TREATMENT for zbigniwe ous thrombosis and/or pulmonary embolus.HIGH RISK: Target INR is 2.5-3.5 for pat ients with mechanical heart valves.CBC W/PLT COUNT & AUTO [id number] 11:15:00* Test Item Value Reference Range Comments WHITE BLOOD CELL COUNT (BEAKER) (test code = 775) 6.0 K/ L 3.5-10.5 RED BLOOD CELL COUNT (BEAKER) (test code = 761) 3.97 M/ L 3.93-5.22 HEMOGLOBIN (BEAKER) (test code = 410) 11.5 GM/DL 11.2-15.7 HEMATOCRIT (BEAKER) (test code = 411) 37.1 % 34.1-44.9 MEAN CORPUSCULAR VOLUME (BEAKER) (test code = 753) 93.5 fL 79.4-94.8 MEAN CORPUSCULAR HEMOGLOBIN (BEAKER) (test code = 751) 29.0 pg 25.6-32.2 MEAN CORPUSCULAR HEMOGLOBIN CONC (BEAKER) (test code = 752) 31.0 GM/DL 32.2-35.5 RED CELL DISTRIBUTION WIDTH (BEAKER) (test code = 412) 15.9 % 11.7-14.4 PLATELET COUNT (BEAKER) (test code = 756) 114 K/CU MM 150-45 0 MEAN PLATELET VOLUME (BEAKER) (test code = 754) 12.0 fL 9.4-12.3 NUCLEATED RED BLOOD CELLS (BEAKER) (test code = 413) 0 /100 WBC 0-0 NEUTROPHILS RELATIVE PERCENT (BEAKER) (test code = 429) 73 % LYMPHOCYTES RELATIVE PERCENT (BEAKER) (test code = 430) 19 % MONOCYTES RELATIVE PERCENT (BEAKER) (test code = 431) 6 % EOSINOPHILS RELATIVE PERCENT (BEAKER) (test code = 432) 1 % BASOPHILS RELATIVE PERCENT (BEAKER) (test code = 437) 1 % NEUTROPHILS ABSOLUTE COUNT (BEAKER) (test code = 670) 4.33 K/ L 1.56-6.13 LYMPHOCYTES ABSOLUTE COUNT (BEAKER) (test code = 414) 1.15 K/ L 1.18-3.74 MONOCYTES ABSOLUTE COUNT (BEAKER) (test code = 415) 0.36 K/ L 0.24-0.36 EOSINOPHILS ABSOLUTE COUNT (BEAKER) (test code = 416) 0.05 K/ L 0.04-0.36 BASOPHILS ABSOLUTE COUNT (BEAKER) (test code = 417) 0.05 K/ L 0.01-0.08 IMMATURE GRANULOCYTES-RELATIVE PERCENT (BEAKER) (test code = 280 1) 0 % 0-1 URINE [id number] 11:37:00* Test Item Value Reference Range Comments CULTURE (BEAKER) (test code = 1095) >100,000 col/mL Savi glabrata CULTURE (BEAKER) (test code = 1095) ENTEROCOCCUS SPECIES >100,000 col/mL Enterococcus species Ampicillin (test code = 26) Ciprofloxacin (test code = 7) Clindamycin (test code = 10) Daptomycin (test code = 59) Erythromycin (test code = 4) Gentamicin (test code = 18) Gentamicin High Level Synergy (test code = 241) Levofloxacin (test code = 22) Linezolid (test code = 40) Moxifloxacin (test code = 36) Nitrofurantoin (test code = 23) Oxacillin (test code = 14) Rifampin (test code = 43) Streptomycin High Level Synergy (test code = 242) Tetracycline (test code = 2) Tigecycline (test code = 133) Trimethoprim + Sulfamethoxazole (test code = 47) Vancomycin (test code = 13) >100,000 col/mL skin floraCYTOMEGALOVIRUS ANTIBODY, [id number] 14:41:00* Test Item Value Reference Range Comments CYTOMEGALOVIRUS IGG ANTIBODY (Podotree) (test code = 790) Positive CYTOMEGALOVIRUS ANTIBODY, [id number] 14:41:00* Test Item Value Reference Range Comments CYTOMEGALOVIRUS IGM ANTIBODY (Podotree) (test code = 816) Negative EBV-VCA ANTIBODY, [id number] 14:41:00* Test Item Value Reference Range Comments BECK-STEWART VCA IGG (Podotree) (test code = 983) Positive EBV-VCA ANTIBODY, [id number] 14:41:00* Test Item Value Reference Range Comments BECK-STEWART VCA IGM (Podotree) (test code = 984) Negative VARICELLA ZOSTER ANTIBODY, [id number] 14:16:00* Test Item Value Reference Range Comments VARICELLA ZOSTER IGG (AL) (Podotree) (test code = 3197) 5.2 Al VARICELLA ZOSTER RESULT INTERPRETATIONS: <=0.8 Al Nonreactive: Presumed non-immune to VZV 0.9-1.0 Al Equivocal >=1.1 Al Reactive: Presumed immune to [id number] 11:54:00* Test Item Value Reference Range Comments RPR SCREEN (Podotree) (test code = 420) Nonreactive Nonreactiv e HEPATITIS B SURFACE [id number] 17:11:00* Test Item Value Reference Range Comments HEPATITIS B SURFACE ANTIGEN (2) (Podotree) (test code = 2585) Nonreactive Nonreactive HEPATITIS B SURFACE [id number] 15:29:00* Test Item Value Reference Range Comments HEPATITIS B SURFACE ANTIBODY (BEAKER) (test code = 647) 8.7 mIU/ mL <8.0 HEPATITIS B CORE ANTIBODY, [id number] 15:22:00* Test Item Value Reference Range Comments HEPATITIS B CORE IGM ANTIBODY (BEAKER) (test code = 645) Non reactive Nonreactive HEPATITIS C [id number] 15:22:00* Test Item Value Reference Range Comments HEPATITIS C ANTIBODY (BEAKER) (test code = 367) Nonreactive Nonreactive HIV-1 ANTIGEN WITH HIV-1/2 [id number] 15:22:00* Test Item Value Reference Range Comments HIV-1 ANTIGEN WITH HIV 1\T\2 ANTIBODY (2) (BEAKER) (te st code = 2586) Nonreactive Nonreactive URINALYSIS W/ [id number] 15:02:00* Test Item Value Reference Range Comments COLOR (BEAKER) (test code = 470) Yellow CLARITY (BEAKER) (test code = 469) Cloudy SPECIFIC GRAVITY UA (BEAKER) (test code = 468) 1.014 1 .001-1.035 PH UA (BEAKER) (test code = 467) 6.0 5.0-8.0 PROTEIN UA (BEAKER) (test code = 464) 200 mg/dL Negative GLUCOSE UA (BEAKER) (test code = 365) Negative Negative KETONES UA (BEAKER) (test code = 371) Negative Negative BILIRUBIN UA (BEAKER) (test code = 462) Negative Negative BLOOD UA (BEAKER) (test code = 461) Moderate Negative NITRITE UA (BEAKER) (test code = 465) Negative Negative LEUKOCYTE ESTERASE UA (BEAKER) (test code = 466) Large Negative UROBILINOGEN UA (BEAKER) (test code = 463) 0.2 mg/dL 0.2-1 .0 RBC UA (BEAKER) (test code = 519) 74 /HPF WBC UA (BEAKER) (test code = 520) 920 /HPF BACTERIA (BEAKER) (test code = 517) Many SQUAMOUS EPITHELIAL (BEAKER) (test code = 516) 59 /HPF HYALINE CASTS (BEAKER) (test code = 514) 46 /LPF CASTS (BEAKER) (test code = 1579) 23 /LPF CRYSTALS, URINE (BEAKER) (test code = 1521) Few YEAST (BEAKER) (test code = 1585) Many SOURCE(BEAKER) (test code = 7575) URIC [id number] 15:01:00* Test Item Value Reference Range Comments URIC ACID (BEAKER) (test code = 773) 4.1 mg/dL 2.6-7.2 [id number] 15:01:00* Test Item Value Reference Range Comments PHOSPHORUS (BEAKER) (test code = 604) 5.3 mg/dL 2.3-4.7 GAMMA GLUTAMYL TRANSFERASE (GGT)[id number] 15:01:00* Test Item Value Reference Range Comments GAMMA GLUTAMYL TRANSFERASE (BEAKER) (test code = 364) 18 U/L 9-64 LACTATE DEHYDROGENASE (LDH)2016-08-19 15:01:00* Test Item Value Reference Range Comments LACTATE DEHYDROGENASE (BEAKER) (test code = 635) 188 U/L 125-220 COMPREHENSIVE METABOLIC [id number] 15:01:00* Test Item Value Reference Range Comments TOTAL PROTEIN (BEAKER) (test code = 770) 6.8 gm/dL 6.0-8.3 ALBUMIN (BEAKER) (test code = 1145) 3.7 g/dL 3.5-5.0 ALKALINE PHOSPHATASE (BEAKER) (test code = 346) 97 U/L 40-150 BILIRUBIN TOTAL (BEAKER) (test code = 377) 0.4 mg/dL 0.2-1 .2 SODIUM (BEAKER) (test code = 381) 139 meq/L 136-145 POTASSIUM (BEAKER) (test code = 379) 4.6 meq/L 3.5-5.1 CHLORIDE (BEAKER) (test code = 382) 100 meq/L 98-107 CO2 (BEAKER) (test code = 355) 23 meq/L 22-29 BLOOD UREA NITROGEN (BEAKER) (test code = 354) 48 mg/dL 7 -21 CREATININE (BEAKER) (test code = 358) 5.89 mg/dL 0.57-1.25 GLUCOSE RANDOM (BEAKER) (test code = 652) 220 mg/dL 70-105 CALCIUM (BEAKER) (test code = 697) 8.8 mg/dL 8.4-10.2 AST (SGOT) (BEAKER) (test code = 353) 12 U/L 5-34 ALT (SGPT) (BEAKER) (test code = 347) < U/L 6-55 EGFR (BEAKER) (test code = 1092) 7 mL/min/1.73 sq m ESTIMATED GFR IS NOT ACCURATE CREATININE CLEARANCE IN PREDICTING GLOMERULAR FILTRATION RATE. ESTIMATED GFR IS NOT APPLICABLE FOR DIALYSIS PATIENTS. PTH, [id number] 15:00:00* Test Item Value Reference Range Comments PARATHYROID HORMONE INTACT (BEAKER) (test code = 577) 275.9 pg/m L 8.5-72.5 Effective 02/20/2014: Reference Range ChangeNew: 8.5-72.5 Previous: 15.0-90.0 HEMOGLOBIN [id number] 14:57:00* Test Item Value Reference Range Comments HEMOGLOBIN A1C (BEAKER) (test code = 368) 7.4 % 4.3-6. 1 [id number] 14:41:00* Test Item Value Reference Range Comments PROTIME (BEAKER) (test code = 759) 13.0 seconds 11.7-14.7 INR (BEAKER) (test code = 370) 1.0 <=5.9 PARTIAL THROMBOPLASTIN TIME (BEAKER) (test code = 760) 29.1 seco nds 22.5-36.0 RECOMMENDED COUMADIN/WARFARIN INR THERAPY RANGESSTANDARD DOSE: 2.0 - 3.0 Inclu kendell: PROPHYLAXIS for venous thrombosis, systemic embolization; TREATMENT for zbigniew ous thrombosis and/or pulmonary embolus.HIGH RISK: Target INR is 2.5-3.5 for pat ients with mechanical heart valves.CBC W/PLT COUNT & AUTO [id number] 14:35:00* Test Item Value Reference Range Comments WHITE BLOOD CELL COUNT (BEAKER) (test code = 775) 6.2 K/ L 4.0-10.0 RED BLOOD CELL COUNT (BEAKER) (test code = 761) 3.66 M/ L 4.00-5.00 HEMOGLOBIN (BEAKER) (test code = 410) 11.5 GM/DL 12.0-15.0 HEMATOCRIT (BEAKER) (test code = 411) 34.7 % 36.0-45.0 MEAN CORPUSCULAR VOLUME (BEAKER) (test code = 753) 94.7 fL 82.0-99.0 MEAN CORPUSCULAR HEMOGLOBIN (BEAKER) (test code = 751) 31.5 pg 27.0-33.0 MEAN CORPUSCULAR HEMOGLOBIN CONC (BEAKER) (test code = 752) 33.3 GM/DL 32.0-36.0 RED CELL DISTRIBUTION WIDTH (BEAKER) (test code = 412) 15.2 % 10.3-14.2 PLATELET COUNT (BEAKER) (test code = 756) 124 K/CU MM 150-43 0 MEAN PLATELET VOLUME (BEAKER) (test code = 754) 8.7 fL 6.5-10.5 NUCLEATED RED BLOOD CELLS (BEAKER) (test code = 413) 0 /100 WBC 0-0 NEUTROPHILS RELATIVE PERCENT (BEAKER) (test code = 429) 77 % LYMPHOCYTES RELATIVE PERCENT (BEAKER) (test code = 430) 17 % MONOCYTES RELATIVE PERCENT (BEAKER) (test code = 431) 5 % EOSINOPHILS RELATIVE PERCENT (BEAKER) (test code = 432) 1 % BASOPHILS RELATIVE PERCENT (BEAKER) (test code = 437) 0 % NEUTROPHILS ABSOLUTE COUNT (BEAKER) (test code = 670) 4.76 K/ L 1.80-8.00 LYMPHOCYTES ABSOLUTE COUNT (BEAKER) (test code = 414) 1.04 K/ L 1.48-4.50 MONOCYTES ABSOLUTE COUNT (BEAKER) (test code = 415) 0.33 K/ L 0.00-1.30 EOSINOPHILS ABSOLUTE COUNT (BEAKER) (test code = 416) 0.05 K/ L 0.00-0.50 BASOPHILS ABSOLUTE COUNT (BEAKER) (test code = 417) 0.01 K/ L 0.00-0.20 0.00
--- OUTSIDE RECORDS SUMMARY | 2019-08-04 05:56 | XMS REPORT | Encounter Summary ---
Author Organization Unknown Address [address] [place] [address] Phone [phone] Care Team Providers Care Oil Plant Operator Name Role Phone Dr. Bruce Sharp 3 [phone] [facility] 82 [phone] [facility] 2 Kate Cotton MD 107 [phone] Franklyn Salinas 118 [phone] Candida Hodgson MD 119 [phone] Reason for Visit lab only visit Instructions 1. Screening for disorder hepatitis C virus RNA, quant, PCR, ser um or plasma 2. Hyperlipidemia lipid panel, serum CMP, serum or plasma 3. Type II diabetes mellitus uncontrolle d HbA1c (hemoglobin A1c), blood 4. Fatigue vitamin B12, serum 5. Hypertensive disorder CBC w/ auto diff Discussion Note: None recorded. Patient educational handouts: No information available. Plan of Care Reminders Provider Appointments Return to Office on or around 11/12/2018 Bruce Anguiano MD Lab Hepatitis C Virus RNA, Quant, PCR, Serum or Plas ma 09/21/2018 [facility] Laboratory Lipid Panel, Serum 09/21/2018 [facility] Laboratory CMP, Serum or Plasma 09/21/2018 [facility] Laboratory HbA1C (Hemoglobin a1C), Blood 09/21/2018 [facility] Laboratory CBC W/ Auto Diff 09/21/2018 [facility] Laboratory Vitamin B12, Serum 09/21/2018 [facility] Laboratory Referral None recorded. Procedures None recorded. Surgeries None recorded. Imaging None recorded. Medications Name Start Date albuterol sulfate 2.5 mg/3 mL (0.083 %) solution for nebulization Inhale 3 mL every 6 hours by nebulization route as needed for 10 days. amlodipine 10 mg tablet TAKE 1 TABLET BY MOUTH EVERY DAY biotin 1,000 mg 2 tabs twice a day cyanocobalamin (vit B-12) 1,000 mcg tabl et Take 1 tablet every day by oral route. gabapentin 300 mg capsule TAKE ONE CAPSULE BY MOUTH TWICE A DAY pt guerline on Gabapentin 100 mg 1 tab bid, please update garlic 1,000 MG QD hydrocodone 5 mg-acetaminophen 300 mg ta blet Take 1 tablet twice a day by oral route as needed for 30 days. Levemir FlexTouch U-100 Insulin 100 unit /mL (3 mL) subcutaneous pen Inject 7 units every day by subcutaneous route in the morning. lorazepam 1 mg tablet TAKE 1 TABLET BY MOUTH EVERY DAY FOR 20 DAYS NEEDED metoprolol succinate ER 25 mg tablet,ext ended release 24 hr TAKE 1 TABLET BY MOUTH EVERY DAY NEBULIZER W/MOUTHPIECE ADULT Novolog Flexpen U-100 Insulin aspart 100 unit/mL (3 mL) subcutaneous Inject 4 units every day by subcutaneous route before meals. ondansetron 4 mg disintegrating tablet pantoprazole 40 mg tablet,delayed releas e TAKE 1 TABLET BY MOUTH EVERY DAY NEEDED promethazine 5 ml qd ramipril 10 mg capsule Take 1 capsule twice a day by oral route. rosuvastatin 10 mg tablet TAKE 1 TABLET BY MOUTH EVERY DAY tramadol 37.5 mg-acetaminophen 325 mg tablet Vitamin B12 1,000 :QD -otc Vitamin D3 1,000 unit capsule QD vitamin E (dl, acetate) 400 unit capsule Take 1 capsule every day by oral route. Medications Administered None recorded. Vitals None recorded. Lab Results None recorded. 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/2016 History of Coronary Artery Bypass Grafting Active 01/02 Diabetes Mellitus Active Dehydration Active Hyperkalemia Active Anemia Active Coronary Arteriosclerosis Active Acute Congestive Heart Failure Active Congestive Heart Failure Active Peripheral Arterial Occlusive Disease Active Melena Active End-stage Renal Disease Active Renal Failure Syndrome Active Renal Impairment Active Lower Urinary Tract Infectious Disease Active Pain in Thumb Active Near Syncope Active Dizziness Present Active Dyspnea Active Acute Diarrhea Active Hyperglycemia Active ECG: Sinus Tachycardia Active Contusion of Upper Arm Active Disorder of Surgical Arteriovenous Fistula Active Acute Exacerbation of Chronic Obstructive Bronchitis Active Procedures Date Name Performed by 06/04/2014 Colonoscopy Information not avai lable Vaccine List Vaccine Type influenza, high dose seasonal 01/03/2018 influenza, injectable, quadrivalent 01/02/2016 01/11/2017 Pneumococcal Conjugate, unspecified form ulation 01/03/2018 Social History Smoking Status Current Every Day Smoker Past Encounters 09/21/2018 Screening for Disorder; Hyperlipidemia; Type II Diabetes Mellitus Uncontrolled; Fatigue; Hypertensive Disorder Bruce Anguiano MD: [id number] [place] [address], Ph. History of Present Illness None recorded. Review of Systems None recorded. Physical Exam None recorded.
--- OUTSIDE RECORDS SUMMARY | 2019-08-04 05:56 | XMS REPORT | Encounter Summary ---
Author Organization Unknown Address [address] [place] [address] Phone [phone] Care Team Providers Care Housekeeping/Laundry Supervisor Name Role Phone Dr. Bruce Sharp 3 [phone] [facility] 82 [phone] [facility] 2 Kate Cotton MD 107 [phone] Franklyn Salinas 118 [phone] Candida Hodgson MD 119 [phone] Reason for Visit Anxiety; Hypertensive disorder; Hyperlip idemia; Chronic back pain; AWV Annual Wellness Visit Female (VFP); Advance Care Plan Instructions 1. Adult health examination 2. Anxiety lorazepam 1 mg tablet 3. Chronic back pain Vicodin 5 mg-300 mg tablet 4. Advance directive discussed with blair ent advance care planning: care instructio yolanda 5. Depression screening 6. Type 2 diabetes mellitus 7. Hypertensive disorder 8. Hyperlipidemia high cholesterol: care instructions 9. Screening mammography mammogram: about this test MAMMO, screening, digital, bilateral 10. Postmenopausal state bone density 11. Pneumococcal vaccination Discussion Note: None recorded. Plan of Care Patient Instructions It was good to see you in the office toleesa lockhart for your Medicare Annual Wellness Visit. You have been provided some information on healthy nutrition, including a diet rich in fruits and vegetables, minimizing simple carbohydrates, salt, and saturated fats. I want to encourage regular cardiovascular exercise such as walking at least 30 minutes daily, 5 times per week. Please remember to schedule any preventive health measures that we talked about today. You have also been provided education on fall prevention and community- based lifestyle interventions to help reduce health risks and promote healthy living in your Annual Wellness folder. Screening Recommendations 1. Vaccines Pneumonia: Recommended today Influenza: Next Fall 2. Mammography Screening: Ordered 3. Colorectal Cancer Screening: Colonoscopy (every 10 years) Recommended today 4. Annual Depression Screening 5. Annual Alcohol Screening 6. Annual Fall Risk Screening 7. Annual Health Risk Assessment Patient Instructions on Filing Advance Directives Be sure that you have easy access to your paperwork for your medical power of district attorney and advanced directives. Be sure that the designated person as well as important family members have copies of those forms as well. Please have contact information of your designee readily available. In the event of hospitalization, please bring those important documents with you for reference. Reminders Provider Appointments Est Patient 02/20/2019 9:00AM Bruce Anguiano MD Lab None recorded. Referral None recorded. Procedures None recorded. Surgeries None recorded. Imaging MAMMO, Screening, Digital, Bilateral 01/27/2019 [facility] Bone Density 01/27/[address] [facility] st Medications Name Start Date albuterol sulfate 2.5 mg/3 mL (0.083 %) solution for nebulization Inhale 3 mL every 6 hours by nebulization route as needed for 10 days. amlodipine 10 mg tablet Take 1 tablet every day by oral route. biotin 5 mg tablet Take 2 tablets twice a day by oral route. cholecalciferol (vitamin D3) 1,000 unit capsule Take 1 capsule every other day by oral route. cyanocobalamin [...] every day by subcutaneous route before meals. promethazine 12.5 mg tablet Take 1 tablet every day by oral route. ramipril 10 mg capsule Take 1 capsule every day by oral route. rosuvastatin 10 mg tablet Take 1 tablet every day by oral route as directed for 30 days. Vicodin 5 mg-300 mg tablet Take 1 tablet twice a day by oral route as needed for 30 days. vitamin E (dl, acetate) 400 unit capsule Take 1 capsule every day by oral route. Medications Administered None recorded. Vitals Height Weight BMI Blood Pressure 5 ft 1.5 in 139 lbs 25.8 kg/m2 130/62 mm[Hg] Results Lab Results None recorded. Allergies Code Code System Name Reaction Severity Status Onset 1191 RxNorm Aspirin Active Problems Name Status Onset Date Source Diabetes Mellitus Active 02/01/2015 Hypertensive Disorder Active 02/01/2015 Coronary Arteriosclerosis Active 02/01/2015 Peripheral Vascular Disease Active 02/01/2015 Exte rnal End-stage Renal Disease Active 02/01/2015 Pulmonary Insufficiency Following Surgery Active 2014 External Shock Active 02/07/2015 External Chronic Renal Insufficiency Active 02/07/2015 Exte rnal Anemia Following Acute Postoperative Blood Loss Active 02/07/2015 External Type 2 Diabetes Mellitus Active 01/03/2016 Hyperlipidemia Active 01/03/2016 Peripheral Nerve Disease Active 01/03/2016 Gastroesophageal Reflux Disease Active 01/03/2016 Chronic Kidney Disease Active 01/03/2016 Chronic Back Pain Active 01/03/2016 Stented Artery Active 01/03/2016 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 01/03/2016 History of Coronary Artery Bypass Grafting Active 01/02 Abrasion And/or Friction Burn of Hand, Infected Active 10/13/2016 External Patient Encounter Status Active 02/15/2017 Externa l End Stage Renal Failure on Dialysis Active 07/02/2017 External Anxiety Active 10/26/2018 Dehydration Active Hyperkalemia Active Anemia Active Acute Congestive Heart Failure Active Congestive Heart Failure Active Peripheral Arterial Occlusive Disease Active Melena Active Renal Failure Syndrome Active Renal Impairment Active Lower Urinary Tract Infectious Disease Active Pain in Thumb Active Near Syncope Active Dizziness Present Active Dyspnea Active Acute Diarrhea Active Hyperglycemia Active ECG: Sinus Tachycardia Active Contusion of Upper Arm Active Disorder of Surgical Arteriovenous Fistula Active Acute Exacerbation of Chronic Obstructive Bronchitis Active Procedures Date Name Performed by Colonoscopy Information not avai lable 01/27/2019 MAMMO, Screening, Digital, Bilateral [facility] [address] [place] [address] (Work [address]) 01/27/2019 Bone Density [facility] [address] [place] [address] (Work [address]) Vaccine List Vaccine Type influenza, high dose seasonal 01/03/2018 influenza, injectable, quadrivalent 01/02/2016 01/11/2017 11/03/2018 Pneumococcal Conjugate, unspecified form ulation 01/03/2018 Social History Tobacco Smoking Status Current Every Day Smoker Past Encounters 01/27/2019 Adult Health Examination; Anxiety; Chronic Back Pain; Advance Directive Discussed with Patient; Depression Screening; Type 2 Diabetes Mellitus; Hypertensive Disorder; Hyperlipidemia; Screening Mammography; Postmenopausal State; Pneumococcal Vaccination Bruce Anguiano MD: [address] [place] [address], Ph. History of Present Illness Mini Cog Reported By: Patient Functional Ability: Personal/Social/ Draw a cloc k and write in the numbers in the correct place, and set the time to 10 minutes after 11 o'clock was completed correctly? Yes, 3 word recall: Your nurse or doctor will ask you to remember 3 words. In 5 minutes, they will ask you to repeat them. Patient recalled 3 words Opioid Use Assessment Reported By: Patient Opioid Use Assessment:: Current Use of Opioids : Hyd rocodone (Vicodin/[place]) Note:I'd like to talk about what is ahead with your illness and do some thinking in advance about what is important to you so I can make sure we provide you with the care you want-is that okay? {{Yes*|No}}
<div>Coming for f/u on anxiety, chronic neck and low back pain. Pain intensity in the neck (8/10) and lower back (4/10). <div>Anxiety: stable. Denies restlessness, nervousness, sadness, suicidal/homicidal thoughts.</div></div> Review of Systems Comprehensive General Adult ROS Reported By: Patient Constitutional: Constitutional: no fever Cardiovascular: Cardiovascular: no chest lizabeth n, no palpitations Respiratory: Respiratory: no cough, no wh eezing, no shortness of breath Gastrointestinal: Gastrointestinal: no abdomin al pain, no nausea, no vomiting, no constipation, no diarrhea Genitourinary: Genitourinary: no incontinen ce, no difficulty urinating, no hematuria, no increased frequency Musculoskeletal: Musculoskeletal: no swelling in the extremities Integumentary: Skin: no rashes Neurologic: Neurologic: no loss of consc iousness, no headaches Psychiatric: Psych: no depression, no alc ohol abuse, no anxiety Physical Exam General Adult Exam (male) Reported By: Patient Constitutional: General Appearance: well-nou rished; Richard facies. Level of Distress: NAD. Ambulation: ambulating normally Psychiatric: Insight: good judgement. Men víctor Status: active and alert, normal mood, normal affect. Orientation: to time, to place, to person Eyes: Lids and Conjunctivae: non-i njected, no discharge Neck: Neck: trachea midline, pain with motion, tender Lungs: Respiratory effort: no dyspn ea. Auscultation: breath sounds normal, no rhonchi Cardiovascular: Heart Auscultation: RRR, nor mal S1, normal S2, no murmurs Abdomen: Inspection and Palpation: so ft, non-distended, no tenderness, no guarding, no rebound tenderness, no masses Musculoskeletal:: Motor Strength and Tone: nor mal, normal tone. Joints, Bones, and Muscles: normal movement of all extremities, no tenderness Neurologic: Gait and Station: normal gai t. Sensation: grossly intact. Reflexes: DTRs 2+ bilaterally throughout Back: Thoracolumbar Appearance: ; tenderness with palpation in the lumbar area with muscle spasms. Decreased ROM because of the pain"
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
--- OUTSIDE RECORDS SUMMARY | 2019-08-04 05:56 | XMS REPORT | Encounter Summary ---
Author Organization Unknown Address [address] [place] [address] Phone [phone] Care Team Providers Care Basket Operator Name Role Phone Dr. Bruce Sharp 3 [phone] [facility] 82 [phone] [facility] 2 Kate Cotton MD 107 [phone] Franklyn Salinas 118 [phone] Candida Hodgson MD 119 [phone] Reason for Visit Anxiety; Chronic back pain; Annual Depre ssion Screening; lab follow-up; other - see typed reason; Tobacco Cessation Counseling Instructions 1. Chronic back pain Vicodin 5 mg-300 mg tablet 2. Anxiety lorazepam 1 mg tablet 3. Chronic neck pain 4. Depression screening learning about depression 5. Nicotine dependence stopping smoking: care instructions advised to quit smoking deciding about using medicines to quit smoking Discussion Note: None recorded. Plan of Care Reminders Provider Appointments Est Patient 01/27/2019 8:15AM Bruce Anguiano MD Lab None recorded. Referral None recorded. Procedures None recorded. Surgeries None recorded. Imaging None recorded. Medications Name Start Date albuterol sulfate 2.5 mg/3 mL (0.083 %) solution for nebulization Inhale 3 mL every 6 hours by nebulization route as needed for 10 days. amlodipine 10 mg tablet Take 1 tablet every day by oral route. amoxicillin 875 mg-potassium clavulanate 125 mg tablet Take 1 tablet twice a day by oral route. biotin [...] oral route as needed for 30 days. Vitamin B12 1,000 :1 TAB A DAY -otc vitamin E (dl, acetate) 400 unit capsule Take 1 capsule every day by oral route. Medications Administered None recorded. Vitals Height Weight BMI Blood Pressure 5 ft 3 in 141 lbs 25 kg/m2 100/54 mm[Hg] Lab Results None recorded. Allergies Code [...] Status Current Every Day Smoker Past Encounters 10/26/2018 Chronic Back Pain; Anxiety; Chronic Neck Pain; Depression Screening; Nicotine Dependence Bruce Anguiano MD: [address] [place] [address], Ph. History of Present Illness Note:Coming for f/u on anxiety, chronic neck and low back pain. Pain intensity in the neck (8/10) and lower back (4/10). However, pain completely goes away with vicodin. Anxiety has been doing ok, taking lorazepam just once every 2 weeks. Denies restlessness, nervousness, sadness, suicidal/homicidal thoughts. Review of Systems Comprehensive General Adult ROS [...] no headaches Psychiatric: Psych: no depression, no sle ep disturbances, no alcohol abuse, no anxiety, no suicidal thoughts Physical Exam General Adult Exam (male) Reported [...] muscle spasms. Decreased ROM because of the pain
--- OUTSIDE RECORDS SUMMARY | 2019-08-04 05:56 | XMS REPORT | Encounter Summary ---
Author Organization Unknown Address [address] [place] [address] Phone [phone] Care Team Providers Care Pot Washer Name Role Phone Dr. Bruce Sharp 3 [phone] [facility] 82 [phone] [facility] 2 Kate Cotton MD 107 [phone] Franklyn Salinas 118 [phone] Candida Hodgson MD 119 [phone] Reason for Visit Anxiety; Hypertensive disorder; Hyperlip [...] Postmenopausal state bone density 11. Pneumococcal vaccination 12. At risk for falls preventing falls: care instructions Discussion Note: None recorded. Plan of Care Patient Instructions It was good to see you in the office madhav lockhart for your Medicare Annual Wellness Visit. [...] your paperwork for your medical power of tax associate attorney and advanced directives. Be sure that [...] Imaging MAMMO, Screening, Digital, Bilateral 01/27/2019 [facility] Bone Density 01/27/2019 [facility] Medications Name Start Date albuterol sulfate 2.5 [...] 01/27/2019 MAMMO, Screening, Digital, Bilateral [facility] [address] [place] [address] (Work [address]) 01/27/2019 Bone Density [facility] [address] [place] [address] (Work Place) Vaccine List Vaccine Type influenza, high dose seasonal 01/03/2018 influenza, injectable, quadrivalent 01/02/2016 01/11/2017 11/03/2018 Pneumococcal Conjugate, unspecified form ulation 01/03/2018 Social History Tobacco Smoking Status Current Every Day Smoker Past Encounters 01/27/2019 Adult Health Examination; Anxiety; Chronic Back Pain; Advance Directive Discussed with Patient; Depression Screening; Type 2 Diabetes Mellitus; Hypertensive Disorder; Hyperlipidemia; Screening Mammography; Postmenopausal State; Pneumococcal Vaccination; At Risk for Falls Bruce Anguiano MD: [address] [place] [address], Ph. History of Present Illness Mini Cog [...] Current Use of Opioids : Hyd rocodone (Vicodin/[place]) Note:I'd like to talk about what is [...]
--- OUTSIDE RECORDS SUMMARY | 2019-08-04 05:56 | XMS REPORT | Encounter Summary ---
Author Organization Unknown Address [address] [place] [address] Phone [phone] Care Team Providers Care Centrifugal Drier Operator Name Role Phone Dr. Bruce Sharp 3 [phone] [facility] 82 [phone] [facility] 2 Kate Cotton MD 107 [phone] Franklyn Salinas 118 [phone] Candida Hodgson MD 119 [phone] Reason for Visit hospital follow up - TCM (VFP) Instructions 1. Hospital patient transitional care management referral 2. Fluid overload pulmonary edema 3. End stage renal failure on dialysis 4. Hyperlipidemia high cholesterol: care instructions lipid panel, serum 5. Benign essential hypertension 6. Chronic back pain Vicodin 5 mg-300 mg tablet 7. Immunization refused 8. Lipoma of head and neck general surgery referral 9. Senile purpura 10. Anemia Discussion Note: None recorded. Plan of Care Reminders Provider Appointments Return to Office on or around 11/12/2018 Bruce Anguiano MD Lab Lipid Panel, Serum 2018 [facility] Referral General Surgery Referral 2018 Hernandez Nuñez MD Transitional Care Management Referral 08/12/2018 Procedures None recorded. Surgeries None recorded. Imaging [...] CAPSULE BY MOUTH TWICE A DAY pt currjacquily on Gabapentin 100 mg 1 tab bid, please update garlic 1,000 MG QD Levemir FlexTouch U-100 Insulin 100 unit /mL [...] needed for 30 days. Vitamin B12 1,000 :QD -otc Vitamin D3 1,000 unit capsule QD vitamin E (dl, acetate) 400 unit capsule Take 1 capsule every day by oral route. Medications Administered None recorded. Vitals Height Weight BMI Blood Pressure 5 ft 3 in 35 lbs 6.2 kg/m2 100/55 mm[Hg] Lab Results None recorded. Allergies Code [...] Status Current Every Day Smoker Past Encounters 2018 Hospital Patient; Fluid Overload Pulmonary Edema; End Stage Renal Failure on Dialysis; Hyperlipidemia; Benign Essential Hypertension; Chronic Back Pain; Immunization Refused; Lipoma of Head and Neck; Senile Purpura; Anemia Bruce Anguiano MD: [address] [place] [address], Ph. History of Present Illness TCM Provider Visit Reported By: Patient HPI: Timing: Date of admit:, Date of discharge:, Please describe what events led up to this hospitalization:, Is Transitional Care Management team involved? No - If No, refer to TCM. Discharge Information: Discharge Diagnoses:, Discharged from: [facility], Discharged to: Home, Hospital Records (H&P, DC Summary, Transition of Care Document) reviewed and scanned? No - records requested, Home health ordered? no If so, Agency Name . Functional Status No difficulty following discharge instructions, Taking medications as prescribed, Understands missed doses, Following recommended activity level Notes: Denies sob today. Review of Systems Comprehensive General Adult ROS [...] Conjunctivae: non-i njected, no discharge Neck: Neck: supple, trachea midlin e Lungs: Respiratory effort: no dyspn ea. Auscultation: no rhonchi, decreased breath sounds Cardiovascular: Heart Auscultation: RRR, nor mal S1, normal S2, no murmurs. Neck vessels: carotid bruit Abdomen: Inspection and Palpation: so ft, non-distended, no tenderness, no guarding, no rebound tenderness, no masses, no CVA tenderness. Liver: no hepatomegaly. Spleen: no splenomegaly Musculoskeletal:: Motor Strength and Tone: nor mal, normal tone. Extremities: no edema Skin: Inspection and palpation: ; lipoma in the back of the neck 3-4 cms in diameter
--- OUTSIDE RECORDS SUMMARY | 2019-08-04 05:56 | XMS REPORT | Encounter Summary ---
Author Organization Unknown Address [address] [place] [address] Phone [phone] Care Team Providers Care Boarding House Cook Name Role Phone Dr. Bruce Sharp 3 [phone] [facility] 82 [phone] [facility] 2 Kate Cotton MD 107 [phone] Franklyn Salinas 118 [phone] Candida Hodgson MD 119 [phone] Reason for Visit Anxiety; Hypertensive disorder; Hyperlip [...] your paperwork for your medical power of document review attorney and advanced directives. Be sure that [...] Imaging MAMMO, Screening, Digital, Bilateral 01/27/2019 [facility] Bone Density 01/27/2019 [facility] Medications Name Start Date albuterol sulfate [...] 01/27/2019 MAMMO, Screening, Digital, Bilateral [facility] [address] [place] [address] (Work [address]) 01/27/2019 Bone Density [facility] [address] [place] [address] (Work Place) Vaccine List Vaccine Type influenza, [...] At Risk for Falls Bruce Anguiano MD: [address] [place] [address], Ph. History of Present Illness Mini Cog [...] Current Use of Opioids : Hyd rocodone (Vicodin/[place]) Note:I'd like to talk about what is [...]
--- OUTSIDE RECORDS SUMMARY | 2019-08-04 05:57 | XMS REPORT | Encounter Summary ---
Author Organization Unknown Address [address] [place] [address] Phone [phone] Care Team Providers Care Protection Officer Name Role Phone Dr. Bruce Sharp 3 [phone] [facility] 82 [phone] [facility] [employer] [facility] 2 Franklyn Salinas 118 [phone] Candida Hodgson MD 119 [phone] Reason for Visit Right arm pain; other - see typed reason Instructions 1. Peripheral vascular disease 2. Chronic back pain Vicodin 5 mg-300 mg tablet 3. Nausea promethazine 12.5 mg tablet 4. Body mass index 25-29 - overweight learning about healthy weight Discussion Note: None recorded. Plan of Care Reminders Provider Appointments None recorded. Lab None recorded. Referral None recorded. Procedures None recorded. Surgeries None recorded. Imaging None recorded. Medications Name Start Date amlodipine 10 mg tablet Take 1 tablet [...] BMI Blood Pressure 5 ft 1.5 in 140 lbs 26 kg/m2 128/69 mm[Hg] Results Lab Results None recorded. Allergies [...] 01/27/2019 MAMMO, Screening, Digital, Bilateral [facility] [address] [place] [address] (Work Place) 01/27/2019 Bone Density [facility] [address] [place] [address] (Work Place) Vaccine List Vaccine Type influenza, high dose seasonal 01/03/2018 influenza, injectable, quadrivalent 01/02/2016 01/11/2017 11/03/2018 Pneumococcal Conjugate, unspecified form ulation 01/03/2018 Social History Tobacco Smoking Status Current Every Day Smoker Past Encounters 02/23/2019 Peripheral Vascular Disease; Chronic Back Pain; Nausea; Body Mass Index 25-29 - Overweight Cassius Rios, DO: [address] [place] [address], Ph. 01/27/2019 Adult Health Examination; Anxiety; Chronic Back Pain; Advance Directive Discussed with Patient; Depression Screening; Type 2 Diabetes Mellitus; Hypertensive Disorder; Hyperlipidemia; Screening Mammography; Postmenopausal State; Pneumococcal Vaccination; At Risk for Falls Bruce Anguiano MD: [address] [place] [address], Ph. History of Present Illness Note:1) HOSPITAL F/U <div>- recent hospital admission for management of RLE PVD on Feb 20. Pt states automobile bumper straightener at [facility] went in cleaned blockage in right leg. No complications since discharge. No scheduled follow up with automobile bumper straightener since discharge. Continues to have pain in both legs. </div><div>< br></div><div>2) CHRONIC BACK PAIN </div><div>- requesting refill of Vicodin < /div><div>
</div><div>3) NAUSEA </div><div>- has episodic nausea. No aggravators identified. Current nausea started today. No reported vomiting or diarrhea. Denies fever, chills. Requesting promethazine </div> Review of Systems Comprehensive General Adult ROS Reported By: Patient Constitutional: Constitutional: no fever Cardiovascular: Cardiovascular: no chest lizabeth n, no shortness of breath when walking Respiratory: Respiratory: no cough, no wh eezing, no shortness of breath Gastrointestinal: Gastrointestinal: no abdomin al pain, no nausea, no vomiting, no constipation, no diarrhea Musculoskeletal: Musculoskeletal: muscle ache s, back pain Integumentary: Skin: no jaundice, no rashes , no laceration, dry skin Physical Exam General Adult Exam (Female) Reported By: Patient Constitutional: General Appearance: healthy- appearing, well-nourished, well- developed. Level of Distress: NAD. Ambulation: ambulating normally Head: Head: normocephalic, atrauma tic Lungs: Respiratory effort: no dyspn ea. Auscultation: breath sounds normal, good air movement, no wheezing, no rales/crackles, no rhonchi Cardiovascular: Heart Auscultation: RRR, nor mal S1, normal S2, no murmurs, no rubs, no gallops. Pulses including femoral / pedal: diminished Abdomen: Bowel Sounds: normal. Inspec tion and Palpation: soft, non-distended, no tenderness, no guarding, no rebound tenderness, no masses. Liver: non-tender, no hepatomegaly. Spleen: non-tender, no splenomegaly Neurologic: Gait and Station: normal gai t, normal station Skin: Inspection and palpation: no rash, no lesions; darkening of bilateral distal feet
--- OUTSIDE RECORDS SUMMARY | 2019-08-04 05:57 | XMS REPORT | Encounter Summary ---
Author Organization Unknown Address [address] [place] [address] Phone [phone] Care Team Providers Care Recreational Leader Name Role Phone Dr. Bruce Sharp 3 [phone] [facility] 82 [phone] [facility] [employer] [facility] 2 Franklyn Salinas 118 [phone] Candida Hodgson MD 119 [phone] Reason for Visit Chronic back pain Instructions 1. Chronic back pain Vicodin 5 mg-300 mg tablet handicap placard 2. Body mass index 25-29 - overweight learning about healthy weight Discussion Note: None recorded. Plan of Care Reminders Provider Appointments None recorded. Lab None recorded. Referral None recorded. Procedures None recorded. Surgeries None recorded. Imaging None recorded. Medications Name Start Date amlodipine 10 mg tablet Take 1 tablet every day by oral route. amoxicillin 500 mg capsule biotin 5 mg [...] BMI Blood Pressure 5 ft 1.5 in 137.8 lbs 25.6 kg/m2 126/63 mm[Hg] Results Lab Results None recorded. Allergies [...] Status Current Every Day Smoker Past Encounters 03/27/2019 Chronic Back Pain; Body Mass Index 25-29 - Overweight Cassius Rios, DO: [address] [place] [address], Ph. History of Present Illness Note:<div>Patient presents to the clinic today with the following concern(s):< div> </div><div>1) CHRONIC LOW BACK PAIN </div></div><div>- Pt presents for follow up of mid back pain. Pt denies any side effect or adverse reactions to her current pain management medication. Pain radiates to bilateral lower extremities, Pt denies any back related numbness or tingling in legs or feet. Pt describes back pain as a constant achy pain. Back pain is exacerbated by prolonged walking and standing. Pain interferes with patient daily activities. Pt rates pain as a 8/10. </div> Review of Systems Comprehensive General Adult ROS Reported By: Patient Constitutional: Constitutional: no fever Cardiovascular: Cardiovascular: no chest lizabeth n, no shortness of breath when walking Respiratory: Respiratory: no cough, no wh eezing, no shortness of breath Gastrointestinal: Gastrointestinal: no abdomin al pain, no nausea, no vomiting, no constipation, no diarrhea Musculoskeletal: Musculoskeletal: no muscle a ches, no muscle weakness, no arthralgias/joint pain, no swelling in the extremities, back pain Physical Exam General Adult Exam (Female) Reported By: Patient Constitutional: General Appearance: healthy- appearing. Level of Distress: NAD. Ambulation: limited ambulation Lungs: Respiratory effort: no dyspn ea. Auscultation: breath sounds normal, good air movement, no wheezing, no rales/crackles, no rhonchi Cardiovascular: Heart Auscultation: RRR, nor mal S1, normal S2, no murmurs, no rubs, no gallops Abdomen: Bowel Sounds: normal. Inspec tion and Palpation: soft, non-distended, no tenderness, no guarding Musculoskeletal:: Motor Strength and Tone: nor mal motor strength, normal tone. Joints, Bones, and Muscles: normal movement of all extremities. Extremities: no edema
--- OUTSIDE RECORDS SUMMARY | 2019-08-04 05:57 | XMS REPORT | Summary of Care ---
Author Author [facility] Organization [facility] Address Unknown Phone Unavailable Care Team Providers Care Button Tufter Name Role Phone PCP Unavailable Reason for Referral * Radiology Services (Routine) Referred By Contact Referred To Contact Status Reason Specialty Diagnoses / Procedures Jenny Samuels MD [address] [place] [address] [facility] [address] [facility] [place] [address] [place] [address] Pending Radiology / Diagnoses Vascular Surgery Carotid bruit, unspecified laterality P rocedures US CAROTID * Consult, Test & Treat (Urgent) Referred By Contact Referred To Contact Status Reason Specialty Diagnoses / Procedures Jenny Samuels MD [address] [place] [address] [facility] [address] [facility] 8th Floor, [address] [place] [address] Pending Consult, Test, and Gastroenterology Diagnoses Treat History of bleeding ulcers P rocedures CO OFFICE OUTPATIENT NEW 30 MINUTES * Radiology Services (Emergency) Referred By Contact Referred To Contact Status Reason Specialty Diagnoses / Procedures Jenny Samuels MD [address] [place] [address] [facility] [address] [facility], [place] [address] [place] [address] Authorization Radiology Diagnoses Not Needed PVD (peripheral vascular disease) (HCCode) P rocedures US ARTERIAL LEGS BILATERAL * Consult, Test & Treat (Urgent) Referred By Contact Referred To Contact Status Reason Specialty Diagnoses / Procedures Jenny Samuels MD [address] [place] [address] Vini Watkins DPM [address] [place] [address] Pending Consult, Test, and Podiatry / Diagnoses Treat Vascular Surgery PVD (peripheral vascular disease) (HCCode) P rocedures CO OFFICE OUTPATIENT NEW 30 MINUTES Reason for Visit * Reason Comments Cardiology Follow-up Encounter Details Care Team Description Date Type Department Jenny Samuels MD [address] [place] [address] [phone] Cardiology Follow-up 02/03/2019 Office Visit [facility] Cardiology [address] [facility], [place] [address] [place] [address] Allergies Comments Active Allergy Reactions Severity Noted Date Aspirin 11/23/2016 bleeding Salicylates 02/01/2015 documented as of this encounter (statuses as of 02/07/2019) Medications End Date Status Medication Sig Dispensed Refills Start Date Active amlodipine (NORVASC) 10 Take 10 mg by 0 MG tablet mouth. Active gabapentin (NEURONTIN) Take 300 mg 0 300 MG capsule by mouth two times daily. Active metoprolol (TOPROL-XL) 25 TK 1 T PO QD 1 4201 MG XL tablet 7 Active promethazine (PHENERGAN) [...] as of this encounter (statuses as of 02/07/2019) Active Problems Problem Noted Date ESRD (end stage renal disease) on dialysis ([facility]) 11/23/2016 Overview: Secondary to HTN and DM On HD since 02/2015 on , Sat Undergoing renal transplant evaluation PVD (peripheral vascular disease) ([facility]) 7 Overview: Critical LLE ischemia S/p COW TESTER and stent to left iliac artery on 02/11/2015 Left common femoral endarterectomy 02/03 CAD (coronary artery disease) 11/23/2016 Overview: Multivessel CAD on heart cath 01/30/15 S/P ACB x 3 - MARTINEZ to LAD; SVG to OM an d RPDA, 02/05/2015 HTN (hypertension) 11/23/2016 [facility] 11/23/2016 HLD (hyperlipidemia) 11/23/2016 documented as of this encounter (statuses as of 02/07/2019) Social History Date Tobacco Use Types Packs/Day [...] Signs Reading Time Taken Comments Vital Sign 150/69 02/03/2019 10:22 AM CDT Blood Pressure 68 02/03/2019 10:22 AM CDT Pulse - - Temperature 16 02/03/2019 10:22 AM CDT Respiratory Rate 98% 02/03/2019 10:22 AM CDT Oxygen Saturation - - Inhaled Oxygen Concentration 62.6 kg (138 lb) 02/03/2019 10:22 AM CDT Weight 160 cm (5' 3") 02/03/2019 10:22 AM CDT Height 24.45 02/03/2019 10:22 AM CDT Body Mass Index documented in this encounter Progress Notes * Jenny Samuels MD - 02/03/2019 10:43 AM CDT Chief Complaint Cardiology Follow-up History of Presenting Illness Kim Guerrero is a 73 y.o. female here referred by Dr. Arndt for evaluati on of PVD. She has a PMH significant for CAD with previous aorto-coronary bypass , peripheral vascular disease, and end-stage renal disease secondary to hyperten jayjay and diabetes mellitus. Also, undergoing renal transplant evaluation. She di alyzes , and Wednesday.Denies chest pain. Has shortness of breath on exe rtion. Has bilateral LE pain and claudication symptoms. Compliant with medicatio ns. She is not on ASA or Plavix. She is not comfortable on starting any AC at th is time due to history of bleeding ulcers in the past. Has not seen Gastroentero logy for a few years. Review of Systems Review of Systems All other systems reviewed and are negative. Past Medical History Past Medical History: Diagnosis Date CAD (coronary artery disease) ESRD (end stage renal disease) (HCCode) Hyperlipidemia Hypertension Peripheral vascular disease (HCCode) Past Surgical History No past surgical history on file. Family History No family history on file. Current Outpatient Medications Current Outpatient Medications Medication Sig Dispense Refill [...] No current facility-administered medications for this visit. Allergies Allergies Allergen Reactions Asa [Aspirin] Salicylates bleeding Social History Social History Tobacco Use Smoking Status Current Every Day Smoker Years: 44.00 Types: Cigarettes Smokeless Tobacco Never Used Tobacco Comment 4-5 cig a day Social History Substance and Sexual Activity Alcohol Use No Social History Substance and Sexual Activity Drug Use No Social History Substance and Sexual Activity Sexual Activity Not on file Physical Examination Vitals: Vital Signs Height: 5' 3" (160 cm) Weight - Scale: 138 lb (62.6 kg) Pulse: 68 Respirations: 16 BP: 150/69 Physical Exam Cardiovascular: Normal rate, regular rhythm, S1 normal, S2 normal and normal hea rt sounds. Exam reveals no S3 and no S4. No murmur heard. Pulses: Dorsalis pedis pulses are 0 on the right side, and 1+ on the left side. Posterior tibial pulses are 0 on the right side, and 1+ on the left side. Laboratory Data Lab Results Component Value Date WBC 6.0 02/15/2017 HGB 11.5 02/15/2017 HCT 37.1 02/15/2017 MCV 93.5 02/15/2017 PLT 114 (L) 02/15/2017 Lab Results Component Value Date NA 138 02/15/2017 Lab Results Component Value Date K 5.1 02/15/2017 Lab Results Component Value Date BUN 63 (H) 02/15/2017 Lab Results Component Value Date CREATININE 6.92 (H) 02/15/2017 Assessment and Plan Kim Guerrero is a 73 y.o. female here referred by Dr. Arndt for evaluati on of PVD. She has a PMH significant for CAD with previous aorto-coronary bypass , peripheral vascular disease, and end-stage renal disease secondary to hyperten jayjay and diabetes mellitus. Also, undergoing renal transplant evaluation. She di alyzes QTue, and Wednesday.Denies chest pain. Has shortness of breath on exe rtion. Has bilateral LE pain and claudication symptoms. Compliant with medicatio ns. She is not on ASA or Plavix. She is not comfortable on starting any AC at th is time due to history of bleeding ulcers in the past. Has not seen Gastroentero logy for a few years. 1. PVD, will order repeat bilateral LE arterial dopplers. Based on the report, w ill plan to schedule LE angiogram. 2. HTN, continue current regimen. 3. Referral to [facility] Gastro, she needs to be re-evaluated for history of bleeding ulcers while on ASA. She is not comfortable on starting any AC at this time. It is recommended given known CAD and PVD, for her to start on ASA or Plavix, if at all possible. Will need to have gastro evaluation prior to starting any anti coagulation. 4. Referral to [facility] podiatry. 5. Carotid bruit, repeat Carotid duplex. RTC after above mentioned work-up. ICD-10-CM 1. PVD (peripheral vascular disease) (HCCode) I73.9 2. Essential hypertension I10 3. Coronary artery disease involving minto coronary artery of minto heart with out angina pectoris I25.10 4. Pre-transplant evaluation for ESRD (end stage renal disease) Z01.818 5. History of bleeding ulcers Z87.11 6. Carotid bruit, unspecified laterality R09.89 TRIC TRUCKER documented in this encounter Plan of Treatment Care Team Description Date Type Specialty Carlitos Padilla MD [address] [facility] [address] [place] [address] [phone] 03/08/2019 Appointment Gastroenterology Carlitos Padilla MD [address] [facility] [address] [place] [address] 03/08/2019 Appointment Gastroenterology Eitan Arndt MD [address] [facility] [address] [place] [address] 06/19/2019 Office Visit Cardiology Date/Time Name Type Priority Associated Diag noses 02/03/2019 10:24 AM CDT ELECTROCARDIOGRAM ECG Routine Essential hy pertension COMPLETE 02/06/2019 9:00 AM ELECTRIC TRUCKER US ARTERIAL LEGS Imaging STAT(<24 PVD (peripher al vascular BILATERAL Hrs) disease) (HCCode) Order Schedule Name Type Priority Associated Diag noses 1 Occurrences starting 02/03/2019 until 02/04/2020 US ARTERIAL LEGS Imaging STAT(<24 PVD (peripher al vascular BILATERAL Hrs) disease) (HCCode) 1 Occurrences starting 02/03/2019 until 02/04/2020 US CAROTID Imaging Routine Carotid bruit, unspecified laterality Order Schedule Name Type Priority Associated Diag noses Ordered: 02/03/2019 AMB REF TO PODIATRY Outpatient Routine PVD (perip heral vascular [facility] Referral disease) (HCCode) Ordered: 02/03/2019 AMB REF TO Outpatient Routine History of blee ding GASTROENTEROLOGY [facility] Referral ulcers Health Maintenance Due Date Last Done Comments COLON CANCER SCREENIN1947 COLONOSCOPY MAMMOGRAM ANNUAL 1945 MEDICARE AWV 1945 TETANUS SHOT (ADULT) 08/10/1962 ANNUAL DIABETIC FOOT EXAM 08/10/1965 ANNUAL DIABETIC 08/10/1965 RETINOPATHY SCREENING BMI FOLLOW UP PLAN 08/10/1965 HEPATITIS C SCREENING 08/10/1965 FALL SCREEN 08/10/2012 OSTEOPOROSIS SCREENING 08/10/2012 PNEUMOVAX >=65 (PPSV23) 08/10/2012 PREVNAR >= 65 (PCV13) 08/10/2012 FLU VACCINE > 6 MONTHS 11/03/2018 documented as of this encounter Procedures Comments Procedure Name Priority Date/Time Associated Diag nosis ELECTROCARDIOGRAM Routine 02/03/2019 Essential hy pertension COMPLETE 10:24 AM CDT documented in this encounter Results Not on filedocumented in this encounter Visit Diagnoses Diagnosis Claudication in peripheral vascular dis ease (HCCode) - Primary Peripheral vascular disease, unspecifie d PVD (peripheral vascular disease) (HCCo de) Peripheral vascular disease, unspecifie d Essential hypertension Unspecified essential hypertension Coronary artery disease involving nativ e coronary artery of minto heart without angina pectoris Pre-transplant evaluation for ESRD (end stage renal disease) Other specified pre-operative examinati on History of bleeding ulcers Personal history of peptic ulcer diseas e Carotid bruit, unspecified laterality documented in this encounter Insurance Type Payer Benefit Subscriber ID Effective Phone Address Plan / Dates Group Medicare MEDICARE MEDICARE xxxxxxxxxx 2015- [address] Present [id number] [place] [address] Medicare [employer] AARP xxxxxxxxxxx 2016-P [address] MEDICARE resent [id number] SUPPLEMENT [facility] [place] [address] ([place]) [place] [address] documented as of this encounter
[2019-08-04 06:53] LABS: INR 1.01; PROTHROMBIN TIME 13.9 seconds (11.9-14.5)
[2019-08-04 06:54] LABS: PARTIAL THROMBOPLASTIN TIME 40.3 seconds (23.8-35.5)
[2019-08-04 11:20] VITALS: BP 133/47
--- NOTE | 2019-08-04 19:35 | Operative Report ---
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 TITLE OF THE OPERATION: Amputation of the right hallux and metatarsal as well as 2nd digit, right foot. ANESTHESIA: General endotracheal. HEMOSTASIS: Right thigh tourniquet. PROCEDURE IN DETAIL: The patient was taken to the operating room in a mildly sedated state, placed on the operating table in supine position. Following induction of general anesthetic, the right lower extremity was placed on the operating table, prepped and draped in usual aseptic manner utilizing Betadine prep. Approaching the digits, a converging semi-elliptical incision was made overlying the infected right hallux and metatarsal. This was extended dorsally to the metatarsal just proximal to the met head first. A sharp sectioning with oscillating saw was performed in the head of the 1st metatarsal as well as the hallux, which was dry gangrenous and infected was removed. The area underlying the head was debrided of all necrotic wound debris. No avni purulence was noted. The area was irrigated with copious amounts of sterile saline solution after cultures were obtained. The area was then irrigated with bacitracin solution. The deep closure was 3-0 Vicryl, skin closure 4-0 nylon. The patient had an ulceration on the plantar aspect as well, which was debrided and packed open with iodoform gauze. The attention was then directed to the second digit, which was noted to be significantly dry and gangrenous as well. A hockey stick shaped incision was placed overlying the second digit and it was disarticulated at the proximal phalangeal joint level. The head of the proximal phalanx was removed as well. The area was irrigated with copious amounts of sterile saline solution and bacitracin solution. Deep closure was 3-0 Vicryl, skin closure 4-0 nylon. The appropriate mildly compressive dressings were applied. The patient left the operating room, vital signs stable in apparent satisfactory condition and tolerated both anesthetic and procedure very well. SAURABH Pagan/MODL /[id number]
== END | disposition home or self-care (01) ==
LOC: OR 05:45
PROVIDERS: ATTEND Podiatrist Foot Surgery
DX: I96 Gangrene, not elsewhere classified (principal); M86.171 Other acute osteomyelitis, right ankle and foot; M86.671 Other chronic osteomyelitis, right ankle and foot; L97.524 Non-pressure chronic ulcer of other part of left foot with necrosis of bone; I25.810 Atherosclerosis of coronary artery bypass graft(s) without angina pectoris; E11.22 Type 2 diabetes mellitus with diabetic chronic kidney disease; I12.0 Hypertensive chronic kidney disease with stage 5 chronic kidney disease or end stage renal disease; N18.6 End stage renal disease; I49.9 Cardiac arrhythmia, unspecified; K28.9 Gastrojejunal ulcer, unspecified as acute or chronic, without hemorrhage or perforation; F41.9 Anxiety disorder, unspecified; F17.210 Nicotine dependence, cigarettes, uncomplicated; Z01.810 Encounter for preprocedural cardiovascular examination; Z01.812 Encounter for preprocedural laboratory examination; Z01.818 Encounter for other preprocedural examination; Z11.59 Encounter for screening for other viral diseases; Z88.6 Allergy status to analgesic agent; Z79.02 Long term (current) use of antithrombotics/antiplatelets; Z79.4 Long term (current) use of insulin; Z99.2 Dependence on renal dialysis; Z95.1 Presence of aortocoronary bypass graft; Z98.62 Peripheral vascular angioplasty status
CPT/HCPCS: 28810; 28825; 36415 ×2; 71046; 76000; 80048; 82948; 84132; 85025; 85610; 85730; 87071; 87075; 87186; 87205; 87635; 88307; 88311; 93005; J0690; J2710; J3010; J7040; 88304; J1100; J2001

== ENCOUNTER → 2019-09-08 | Day surgery (SDC) | payer MEDICARE, OTHER ==
[2019-09-05 16:32] LABS: BASOPHILS # (AUTO) 0.1 (0.0-0.1); BASOPHILS % 0.7 % (0.0-1.0); EOSINOPHILS # (AUTO) 0.1 (0.0-0.4); EOSINOPHILS % 1.2 % (0.0-6.0); HEMATOCRIT 33.5 % (34.2-44.1); HEMOGLOBIN 9.5 g/dL (12.0-16.0); LYMPHOCYTES # (AUTO) 0.8 (1.0-3.2); LYMPHOCYTES % 11.2 % (18.0-39.1); MEAN CORPUSCULAR HEMOGLOBIN 25.1 pg (28-32); MEAN CORPUSCULAR HGB CONC 28.4 g/dL (31-35); MEAN CORPUSCULAR VOLUME 88.4 fL (81-99); MONOCYTES # (AUTO) 0.5 (0.2-0.8); MONOCYTES % 7.2 % (4.4-11.3); NEUTROPHILS # (AUTO) 5.9 (2.1-6.9); NEUTROPHILS % 79.3 % (38.7-80.0); PLATELET COUNT 195 x10e3/uL (140-360); RED BLOOD COUNT 3.79 x10e6/uL (3.6-5.1); RED CELL DISTRIBUTION WIDTH 23.3 % (11.7-14.4)
[2019-09-05 16:49] LABS: ANION GAP 14.7 mmol/L (8-16); CALCIUM 8.9 mg/dL (8.4-10.2); CREATININE, SERUM 3.65 mg/dL (0.57-1.11); POTASSIUM 3.7 mmol/L (3.5-5.1)
[~2019-09-08] MED LIST changes: +ACETAMINOPHEN 1000 MG/100 ML IV ONE; -BUPIVACAINE HCL 0.5% INJ 30 ML VIAL INJ ONE; -ETOMIDATE 2 MG/ML 10 ML INJ IV ONE; -FENTANYL CITRATE/PF 100MCG/2 ML INJ ONE; +ONDANSETRON HCL INJ 2MG/ML 2ML 2 MG/ML VIAL ONE; +PROPOFOL IV EMULSION 10 MG/ML 20 ML VIAL ONE
[2019-09-08 15:15] VITALS: BP 118/47
--- NOTE | 2019-09-08 21:05 | Operative Report ---
DATE OF PROCEDURE: SURGEON: Alexander Dumont DPM PREOPERATIVE DIAGNOSIS: Gangrene failed flap on the right foot. POSTOPERATIVE DIAGNOSIS: Gangrene failed flap on the right foot. TITLE OF THE OPERATION: Debridement gangrene, 1st metatarsal and 2nd digit area, right foot. PROCEDURE IN DETAIL: The patient was taken to the operating room in a mildly sedated state and placed on the operating table in supine position. Following induction of general anesthetic, the right lower extremity was elevated to 60 degrees. No tourniquet was used. The area was debrided with a 15 blade. Starting with the 2nd digit. Distal cap was debrided and the underlying tissue had a healthy bleeding granular base. On the 1st metatarsal, the necrotic flap which had been fashioned at the time of the 1st metatarsal, amputation was noted to be necrotic. This was debrided away and the underlying tissue was noted to be vascular and have a healthy flow. The underlying tissues of hyperkeratosis were debrided as well. All areas were irrigated with Simpulse. A human tissue allograft was applied to the base of the 1st met and 2nd digit. Nonadhesive dressing was then applied and iodoform gauze packed overlying the appropriate mildly compressive dressings were applied and no tourniquet had been used. The patient tolerated the procedure well and is to remain nonweightbearing. Return to see me within one week postoperatively. SAURABH Pagan/FELIPE /[id number]
== END | disposition home or self-care (01) ==
LOC: OR 10:10
PROVIDERS: ATTEND Podiatrist Foot Surgery
DX: I96 Gangrene, not elsewhere classified (principal); T86.821 Skin graft (allograft) (autograft) failure; Z89.431 Acquired absence of right foot; L85.9 Epidermal thickening, unspecified; E11.22 Type 2 diabetes mellitus with diabetic chronic kidney disease; I12.0 Hypertensive chronic kidney disease with stage 5 chronic kidney disease or end stage renal disease; N18.6 End stage renal disease; I25.810 Atherosclerosis of coronary artery bypass graft(s) without angina pectoris; F17.210 Nicotine dependence, cigarettes, uncomplicated; Z88.6 Allergy status to analgesic agent; Z01.812 Encounter for preprocedural laboratory examination; Z11.59 Encounter for screening for other viral diseases; Z79.02 Long term (current) use of antithrombotics/antiplatelets; Z79.4 Long term (current) use of insulin; Z95.1 Presence of aortocoronary bypass graft
CPT/HCPCS: 11044; 36415 ×2; 80048; 82948; 84132; 85025; 87071; 87075; 87186; 87205; 87635; J0131; J0690; J1100; J2001; J2405; J2704; J7040; J2710

== ENCOUNTER → 2020-08-30 | Day surgery (SDC) | payer MEDICARE ==
[~2020-08-30] MED LIST changes: -ACETAMINOPHEN 1000 MG/100 ML IV ONE; -BACITRACIN 50,000 UNIT VIAL ONE; +BUPIVACAINE HCL 0.5% INJ 30 ML VIAL INJ ONE; +CARVEDILOL12.5 MG PO; +EPHEDRINE SULFATE INJ 50 MG/ML VIAL ONE; +FENTANYL CITRATE/PF 100MCG/2 ML INJ ONE; +HYDROCODONE/APAP 5MG-325MG TAB ONE; -NEOSTIGMINE 1 MG/ML 10ML VIAL ONE; +NEPHRO-VITE TABL1 EA PO; +POVIDONE IODINE 0.05% 0.05 % ML PO ONE; +RENVELA0.8 GM PO
[2020-08-30 09:03] LABS: BASOPHILS # (AUTO) 0.1 (0.0-0.1); BASOPHILS % 0.5 % (0.0-1.0); EOSINOPHILS # (AUTO) 0.1 (0.0-0.4); EOSINOPHILS % 0.6 % (0.0-6.0); HEMATOCRIT 36.5 % (34.2-44.1); HEMOGLOBIN 10.8 g/dL (12.0-16.0); LYMPHOCYTES # (AUTO) 0.9 (1.0-3.2); LYMPHOCYTES % 7.9 % (18.0-39.1); MEAN CORPUSCULAR HEMOGLOBIN 28.8 pg (28-32); MEAN CORPUSCULAR HGB CONC 29.6 g/dL (31-35); MEAN CORPUSCULAR VOLUME 97.3 fL (81-99); MONOCYTES # (AUTO) 0.7 (0.2-0.8); MONOCYTES % 6.1 % (4.4-11.3); NEUTROPHILS # (AUTO) 9.9 (2.1-6.9); NEUTROPHILS % 84.3 % (38.7-80.0); PLATELET COUNT 189 x10e3/uL (140-360); RED BLOOD COUNT 3.75 x10e6/uL (3.6-5.1); RED CELL DISTRIBUTION WIDTH 18.9 % (11.7-14.4)
[2020-08-30 09:23] LABS: INR 0.85; PARTIAL THROMBOPLASTIN TIME 36.4 seconds (23.8-35.5); PROTHROMBIN TIME 12.2 seconds (11.9-14.5)
[2020-08-30 09:28] LABS: ANION GAP 23.5 mmol/L (8-16); CALCIUM 9.1 mg/dL (8.4-10.2); CREATININE, SERUM 5.96 mg/dL (0.57-1.11); POTASSIUM 4.5 mmol/L (3.5-5.1)
[2020-08-30 12:30] VITALS: BP 138/56
== END | disposition home or self-care (01) ==
LOC: OR 07:51
PROVIDERS: ATTEND Podiatrist Foot Surgery
DX: I96 Gangrene, not elsewhere classified (principal); M86.171 Other acute osteomyelitis, right ankle and foot; M86.671 Other chronic osteomyelitis, right ankle and foot; M67.01 Short Achilles tendon (acquired), right ankle; L89.899 Pressure ulcer of other site, unspecified stage; E11.22 Type 2 diabetes mellitus with diabetic chronic kidney disease; I12.0 Hypertensive chronic kidney disease with stage 5 chronic kidney disease or end stage renal disease; N18.6 End stage renal disease; I25.810 Atherosclerosis of coronary artery bypass graft(s) without angina pectoris; I25.2 Old myocardial infarction; K21.9 Gastro-esophageal reflux disease without esophagitis; F32.9 Major depressive disorder, single episode, unspecified; F41.9 Anxiety disorder, unspecified; F17.210 Nicotine dependence, cigarettes, uncomplicated; Z88.6 Allergy status to analgesic agent; Z01.812 Encounter for preprocedural laboratory examination; Z01.818 Encounter for other preprocedural examination; Z20.822 Contact with and (suspected) exposure to COVID-19; Z79.02 Long term (current) use of antithrombotics/antiplatelets; Z79.4 Long term (current) use of insulin; Z99.2 Dependence on renal dialysis; Z95.1 Presence of aortocoronary bypass graft
CPT/HCPCS: 27685; 28805; 36415; 71046; 76000; 80048; 82948; 85025; 85610; 85730; 88307; 88311; J0690; J1100; J2001; J2405; J2704; J3010; J7040; U0002; V2790; 88304